=== PATIENT | female | born 1945 | race Caucasian/White ===

== ENCOUNTER 2017-02-03 09:49 | Emergency (ER) | payer MEDICARE, MEDICAID ==
--- NOTE | 2017-02-03 10:35 | EDM.PDOC ---
ED HPI Trauma - General Chief Complaint: Lower Extremity Injury/Pain Stated Complaint: Right foot redness Time Seen by Provider: 02/03/17 10:25 Source: Reports: Patient, RN notes reviewed History Limitations: Reports: No limitations - History of Present Illness INITIAL COMMENTS - FREE TEXT/NARRATIVE: 71 year old female, accompanied by her daughter, presents to the ED with concerns for worsening infection of her right foot. She has diabetic foot ulcers to the bottom of her right foot. This were debrieded by a lan support specialist this past week. They are unsure of the doctor's name but think it was Dr. Millan. She had redness to her foot which was outlined. They were instructed to come to the ED if the redness went past the outline. This morning they noticed that the redness extended just slightly past the line but it is improving in other areas. She has no fever or chills. She is on an antibiotic but they are unsure of the name. I'm guessing by the description she is on Bactrim DS but I am unable to verify since today is Saturday and I am unable to contact her specialist and pharmacy. They are following the wound care instructions as directed. They noticed some dark skin to the bottom of the foot and occasional drainage. She has a follow-up with her specialist on of this next week. Allergies/ADRs: Allergies No Known Allergies Allergy (Verified 02/03/17 10:01) Home Medications: Ambulatory Orders Hydrochlorothiazide 25 mg PO DAILY 02/03/17 [Confirmed 02/03/17] Insulin Aspart [NovoLOG] 0 unit SQ ASDIRECTED PRN 02/03/17 [Confirmed 02/03/17] Insulin Glarg,Human.Rec.Analog [LantUS Solostar] 72 units SQ BEDTIME 02/03/17 [ Confirmed 02/03/17] Levothyroxine [Synthroid] 50 mcg PO DAILY 02/03/17 [Confirmed 02/03/17] Losartan Potassium [Cozaar] 100 mg PO DAILY 02/03/17 [Confirmed 02/03/17] Simvastatin [Zocor] 20 mg PO BEDTIME 02/03/17 [Confirmed 02/03/17] amLODIPine [Norvasc] 5 mg PO DAILY 02/03/17 [Confirmed 02/03/17] Past Medical History HEENT History: Reports: Cataract, Impaired vision Other HEENT History: wears eyeglasses, strep throat Cardiovascular History: Reports: High cholesterol, Hypertension Genitourinary History: Reports: UTI, recurrent [employer] History: Reports: Musculoskeletal History: Reports: Fracture Endocrine/Metabolic History: Reports: Diabetes, type II, Hypothyroidism Hematologic History: Reports: Anemia Dermatologic History: Reports: Other (see below) Other Dermatologic History: surface blood clot removed from L) lower extremity. - Past Surgical History HEENT Surgical History: Reports: Cataract surgery, Tonsillectomy Musculoskeletal Surgical History: Reports: Other (see below) Other Musculoskeletal Surgeries/Procedures:: surgery to R) great toe Social & Family History - Tobacco Use Smoking Status *Q: Never Smoker Second Hand Smoke Exposure: No - Caffeine Use Caffeine Use: Reports: Soda, Tea - Recreational Drug Use Recreational Drug Use: No Review of Systems - Review of Systems Review Of Systems: See Below Constitutional: Reports: no symptoms. Denies: chills, fever Respiratory: Reports: No Symptoms. Denies: Shortness of Breath Cardiovascular: Reports: no symptoms. Denies: chest pain Musculoskeletal: Reports: foot pain Skin: Reports: erythema, wound Trauma Exam - Physical Exam Exam: See Below Exam Limited By: No limitations General Appearance: Reports: alert, WD/WN, no apparent distress Respiratory Exam: Reports: no respiratory distress, lungs clear, normal breath sounds Cardiovascular: Reports: regular rate, rhythm Extremities: Reports: tenderness (right foot ) Neurologic: Reports: alert, oriented x 3 Skin: Reports: Other (there is erythema to the dorsal aspect of the left foot. there is a black marker line on her foot surrounding the erythema. Most of the redness has receeded from the line. There is one small area where the redness passes the line but may be 2-3mm. On the bottom of the yelena's foot, there are two foot ulcers with eschar noted. There is a small, quarter sized area of black tissue. There is no foul odor. No drainage. ) Course - Vital Signs Last Recorded V/S: Last Vital Signs Temp 97.8 F 02/03/17 09:50 Pulse 71 02/03/17 12:30 Resp 16 02/03/17 12:30 BP 120/55 L 02/03/17 12:30 Pulse Ox 98 02/03/17 12:30 - Orders/Labs/Meds Labs: Laboratory Tests 02/03/17 02/03/17 Range/Units 10:49 10:49 WBC 11.51 H (3.98-10.04) K/mm3 RBC 3.88 L (3.98-5.22) M/mm3 Hgb 10.3 L (11.2-15.7) gm/L Hct 32.3 L (34.1-44.9) % MCV 83.2 (79.4-94.8) fl MCH 26.5 (25.6-32.2) pg MCHC 31.9 L (32.2-35.5) g/dl RDW Std Deviation 40.8 (36.4-46.3) fL Plt Count 410 H (182-369) K/mm3 MPV 8.2 L (9.4-12.3) fl Neutrophils % (Manual) 74 H (40-60) % Band Neutrophils % 0 (0-10) % Lymphocytes % (Manual) 14 L (20-40) % Atypical Lymphs % 0 % Monocytes % (Manual) 7 (2-10) % Eosinophils % (Manual) 2 (0.7-5.8) % Basophils % (Manual) 0 L (0.1-1.2) Metamyelocytes % 2 Myelocytes % 1 Platelet Estimate Adequate Plt Morphology Comment Normal Polychromasia 1+ slight Hypochromasia 1+ slight Poikilocytosis 1+ slight Anisocytosis 1+ slight Microcytosis 1+ slight Macrocytosis 1+ slight Tear Drop Cells 1+ slight RBC Morph Comment Abn C-Reactive Protein 7.5 H* (<1.0) mg/dL - Re-Assessments/Exams Free Text/Narrative Re-Assessment/Exam: CBC reveals WBC of 11,500 and elevated neutrophils. No bandemia. CRP is elevated at 7.5. These levels are to be expected considering she has a known infection. She is on day 3 of antibiotics. She has no fever or signs of systemic infection. On exam, the redness seems receding from the line with one small area that passes the line. I discussed this with Dr. Warner. He agrees that the patient seems to be improving and does not require any change in treatment plan. The patient and daughter were educated on return precautions. Instructed to continue current antibiotic and wound care instructions. They were instructed to call their lan support specialist tomorrow. I encourage them to see her PCP Connie Castellon on Saturday for recheck if her specialist cannot see her sooner than . Also recommended recheck in ED with any worsening of symptoms. Departure - Departure Time of Disposition: 12:09 Disposition: Home, Self-Care 01 Condition: good Clinical Impression: Cellulitis Qualifiers: Site of cellulitis: extremity Site of cellulitis of extremity: lower extremity Laterality: right Qualified Code(s): L03.115 - Cellulitis of right lower limb Foot ulcer Qualifiers: Laterality: right Non-pressure ulcer stage: unspecified non-pressure ulcer stage Qualified Code(s): L97.519 - Non-pressure chronic ulcer of other part of right foot with unspecified severity Instructions: Diabetes and Foot Care, Cellulitis, Adult, [id number] Referrals: Connie Castellon NP [Primary Care Provider] - Forms: ED Department Discharge Additional Instructions: Continue your antibiotics and wound care as instructed by your lan support specialist Call your lan support specialist tomorrow to update them on your progress See Connie Castellon in the clinic on Saturday for recheck if your specialist cannot see you any sooner than Return to ER with any worsening of symptoms
[2017-02-03 12:38] VITALS: BP 120/55
== END 2017-02-03 12:30 | disposition home or self-care (01) ==
LOC: SUPCPDRO 09:49 → JD.ED 09:49
DX: L03.115 Cellulitis of right lower limb (principal); E11.621 Type 2 diabetes mellitus with foot ulcer; L97.519 Non-pressure chronic ulcer of other part of right foot with unspecified severity; I10 Essential (primary) hypertension; E78.00 Pure hypercholesterolemia, unspecified; E03.9 Hypothyroidism, unspecified; Z79.4 Long term (current) use of insulin; Z79.899 Other long term (current) drug therapy; Z87.440 Personal history of urinary (tract) infections; Z98.49 Cataract extraction status, unspecified eye; Z86.2 Personal history of diseases of the blood and blood-forming organs and certain disorders involving the immune mechanism; Z98.890 Other specified postprocedural states
CPT/HCPCS: 36415; 85025; 86140; 99282; 99283

== ENCOUNTER 2017-05-23 00:24 | Inpatient (IN) | payer MEDICARE, MEDICAID ==
[2017-05-23] MEDS ORDERED: Ondansetron 4 MG/2 ML SDV IVPUSH ONE (00:47)
[2017-05-23] MEDS ORDERED: Sodium Chloride 0.9% 10 ML Syringe FLUSH PRN (00:47)
[2017-05-23] MEDS ORDERED: Sodium Chloride 0.9% 1,000 ML IV SCH (01:00)
--- NOTE | 2017-05-23 01:01 | EDM.PDOC ---
ED HPI GENERAL MEDICAL PROBLEM - General Chief Complaint: Gastrointestinal Problem Stated Complaint: THROWING UP Time Seen by Provider: 05/23/17 00:39 Source of Information: Reports: Patient, Family History Limitations: Reports: No Limitations - History of Present Illness INITIAL COMMENTS - FREE TEXT/NARRATIVE: The patient presents with generalized abdominal pain, nausea and vomiting. This started this morning and she has not eaten anything since noon. She has no diarrhea or dysuria. She was admitted a few weeks ago at [facility] in [place] for he same and she had pneumonia and a UTI. She also has an infected great toe on the left and an infection to the sole of her right foot. She has been seeing Dr Millan for this from [place]. They were doing very good when she was admitted. After she was discharged on the they have been getting worse. She feels like she has a fever and she has chills. She has a productive cough. She denies chest pain or shortness of breath. She has generalized abdominal pain when she vomits. Onset: Gradual Duration: Hour(s): (Since this morning) Location: Reports: Abdomen Quality: Reports: Ache Severity: Mild Improves with: Reports: None Worsens with: Reports: None Associated Symptoms: Reports: Cough, cough w sputum, Fever/Chills, Nausea/ Vomiting. Denies: Chest Pain, Shortness of Breath Right Abdomen Pain Score (Numeric/FACES): 4 R Foot Pain Score (Numeric/FACES): 5 - Related Data Allergies Allergy/AdvReac Type Severity Reaction Status Date / Time No Known Allergies Allergy Verified 05/23/17 00:50 Home Meds: Home Meds Hydrochlorothiazide 25 mg PO DAILY 02/03/17 [History] Insulin Aspart [NovoLOG] 0 unit SQ ASDIRECTED PRN 02/03/17 [History] Insulin Glarg,Human.Rec.Analog [LantUS Solostar] 72 units SQ BEDTIME 02/03/17 [ History] Levothyroxine [Synthroid] 50 mcg PO DAILY 02/03/17 [History] Losartan Potassium [Cozaar] 100 mg PO DAILY 02/03/17 [History] Simvastatin [Zocor] 20 mg PO BEDTIME 02/03/17 [History] amLODIPine [Norvasc] 5 mg PO DAILY 02/03/17 [History] Past Medical History HEENT History: Reports: Cataract, Impaired Vision Other HEENT History: wears eyeglasses, strep throat Cardiovascular History: Reports: High Cholesterol, Hypertension Gastrointestinal History: Reports: Chronic Constipation Genitourinary History: Reports: UTI, Recurrent [employer] History: Reports: 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 - Past Surgical History HEENT Surgical History: Reports: Cataract Surgery, Tonsillectomy GI Surgical History: Reports: None Social & Family History - Tobacco Use Smoking Status *Q: Former Smoker Used Tobacco, but Quit: Yes Month Tobacco Last Used: Second Hand Smoke Exposure: No - Caffeine Use Caffeine Use: Reports: Tea - Recreational Drug Use Recreational Drug Use: No ED ROS GENERAL - Review of Systems Review Of Systems: See Below Constitutional: Reports: Fever, Chills HEENT: Reports: No Symptoms Respiratory: Reports: Cough, Sputum Cardiovascular: Reports: No Symptoms Endocrine: Reports: No Symptoms GI/Abdominal: Reports: Abdominal Pain, Nausea, Vomiting. Denies: Diarrhea : Reports: No Symptoms Musculoskeletal: Reports: Other (Infected left great toe and right foot) ED EXAM, GI/ABD - Physical Exam Exam: See Below Exam Limited By: No Limitations General Appearance: Alert, No Apparent Distress Ears: Normal External Exam Nose: Normal Inspection Head: Atraumatic, Normocephalic Neck: Normal Inspection Respiratory/Chest: No Respiratory Distress, Lungs Clear, Normal Breath Sounds Cardiovascular: Regular Rate, Rhythm, No Edema, No Murmur GI/Abdominal Exam: Soft, Non-Tender, No Organomegaly Back Exam: Normal Inspection Extremities: Other (Erythema and edema with some skin break down of her left great toe. Ulcer and erythema to the bottom of her right foot.) Course - Vital Signs Last Recorded V/S: Last Vital Signs Temp 98.1 F 05/23/17 14:40 Pulse 83 05/23/17 14:40 Resp 12 05/23/17 14:40 BP 119/47 L 05/23/17 14:40 Pulse Ox 93 L 05/23/17 14:40 - Orders/Labs/Meds Orders: Active Orders 24 hr Category Date Time Status Cardiac Monitoring [RC] . DIRECTED Care 05/23/17 00:47 Active Peripheral IV Care [RC] . DIRECTED Care 05/23/17 00:48 Active CULTURE BLOOD [BC] Stat Lab 05/23/17 01:15 Received CULTURE BLOOD [BC] Stat Lab 05/23/17 01:22 Received UA W/MICROSCOPIC [URIN] Stat Lab 05/23/17 00:47 Uncollected Sodium Chloride 0.9% [Saline Flush] Med 05/23/17 00:47 Active 10 ml FLUSH ASDIRECTED PRN Blood Culture x2 Reflex Set [OM.PC] Stat Oth 05/23/17 00:48 Ordered ED Antiemetic Medication Reflex [OM.PC] Stat Oth 05/23/17 00:48 Ordered Peripheral IV Insertion Adult [OM.PC] Stat Oth 05/23/17 00:47 Ordered Medication Orders Acetaminophen (Tylenol) 650 mg PO Q4H PRN PRN Reason: Pain (Mild 1-3)/fever Hydrocodone Bitart/Acetaminophen (Onward 325-5 Mg) 1 tab PO Q4H PRN PRN Reason: Pain (moderate 4-6) Last Admin: 05/23/17 12:33 Dose: 1 tab Albuterol/Ipratropium (Duoneb 3.0-0.5 Mg/3 Ml) 3 ml NEB Q4H PRN PRN Reason: Shortness Of Breath/wheezing Amlodipine Besylate (Norvasc) 5 mg PO DAILY [facility] Last Admin: 05/23/17 11:14 Dose: 5 mg Bisacodyl (Dulcolax) 5 mg PO DAILY PRN PRN Reason: Constipation Bisacodyl (Dulcolax) 10 mg RECTAL DAILY PRN PRN Reason: Constipation Last Admin: 05/23/17 16:22 Dose: 10 mg Dextrose/Water (Dextrose 50% In Water) 50 ml IVPUSH ASDIRECTED PRN PRN Reason: Hypoglycemia Docusate Sodium (Colace) 100 mg PO BID PRN PRN Reason: Constipation Enoxaparin Sodium (Lovenox) 30 mg SUBCUT DAILY [facility] Hydralazine HCl (Apresoline) 20 mg IVPUSH Q4H PRN PRN Reason: Hypertension Hydrochlorothiazide (Hydrochlorothiazide) 25 mg PO DAILY [facility] Last Admin: 05/23/17 11:13 Dose: 25 mg Hydromorphone HCl (Dilaudid) 0.5 mg IVPUSH Q4H PRN PRN Reason: Pain (severe 7-10) Levofloxacin/Dextrose 250 mg/ (Premix) 50 mls @ 50 mls/hr IV Q24H [facility] Piperacillin Sod/Tazobactam (Sod 4.5 gm/ Sodium Chloride) 100 mls @ 25 mls/hr IV Q8H [facility] Last Admin: 05/23/17 17:00 Dose: 25 mls/hr Vancomycin HCl 250 mg/Vancomycin HCl 1 gm/ Sodium Chloride 250 mls @ 166 mls/ hr IV Q24H [facility] Last Admin: 05/23/17 13:54 Dose: 166 mls/hr Potassium Chloride 10 meq/ (Premix) 100 mls @ 100 mls/hr IV Q1H [facility] Stop: 05/23/17 20:29 Last Admin: 05/23/17 17:52 Dose: 100 mls/hr Infusion: 05/23/17 17:26 Dose: 100 mls/hr Admin: 05/23/17 16:26 Dose: 100 mls/hr Insulin Aspart (Novolog) 0 unit SUBCUT QIDACANDBED [facility] PRN Reason: Protocol Last Admin: 05/23/17 17:01 Dose: 6 units Admin: 05/23/17 11:40 Dose: 4 units Admin: 05/23/17 10:18 Dose: Insulin Detemir (Levemir) 36 unit SUBCUT BID [facility] Levothyroxine Sodium (Synthroid) 50 mcg PO ACBREAKFAST [facility] Last Admin: 05/23/17 11:13 Dose: 50 mcg Lorazepam (Ativan) 2 mg IVPUSH Q4H PRN PRN Reason: Seizures Losartan Potassium (Cozaar) 100 mg PO DAILY [facility] Last Admin: 05/23/17 11:14 Dose: 100 mg Magnesium Sulfate (Pharmacy To Dose - Magnesium Replacement) 0 dose .XX ASDIRECTED PRN PRN Reason: RX TO WATCH MAG LEVELS Metoprolol Tartrate (Lopressor) 5 mg IVPUSH Q4H PRN PRN Reason: Tachycardia Miscellaneous Information (Remove Patch) 1 ea TRDERM ONETIME ONE Stop: 05/26/17 16:00 Ondansetron HCl (Zofran) 4 mg IVPUSH Q4H PRN PRN Reason: Nausea/Vomiting Last Admin: 05/23/17 17:23 Dose: 4 mg Admin: 05/23/17 11:22 Dose: 4 mg Polyethylene Glycol (Miralax) 17 gm PO DAILY PRN PRN Reason: Constipation Potassium Chloride (Pharmacy To Dose - Potassium Replacement) 0 dose .XX ASDIRECTED PRN PRN Reason: RX TO WATCH K LEVELS Saccharomyces Boulardii (Florastor) 250 mg PO BID [facility] Senna/Docusate Sodium (Senna Plus) 1 tab PO BID PRN PRN Reason: Constipation Simvastatin (Zocor) 20 mg PO BEDTIME [facility] Sodium Chloride (Saline Flush) 10 ml FLUSH ASDIRECTED PRN PRN Reason: Keep Vein Open Last Admin: 05/23/17 00:55 Dose: 10 ml Temazepam (Restoril) 15 mg PO BEDTIME PRN PRN Reason: Sleep Vancomycin HCl (Pharmacy To Dose - Vancomycin) 0 dose .XX ASDIRECTED PRN PRN Reason: RX TO DOSE Labs: Laboratory Tests 05/23/17 05/23/17 05/23/17 Range/Units 00:43 00:43 01:15 WBC 17.33 H (3.98-10.04) K/mm3 RBC 4.38 (3.98-5.22) M/mm3 Hgb 11.4 (11.2-15.7) gm/L Hct 35.4 (34.1-44.9) % MCV 80.8 (79.4-94.8) fl MCH 26.0 (25.6-32.2) pg MCHC 32.2 (32.2-35.5) g/dl RDW Std Deviation 45.2 (36.4-46.3) fL Plt Count 317 (182-369) K/mm3 MPV 9.3 L (9.4-12.3) fl Neut % (Auto) 88.1 H (34.0-71.1) % Lymph % (Auto) 6.5 L (19.3-51.7) % [place] % (Auto) 4.6 L (4.7-12.5) % Eos % (Auto) 0.1 L (0.7-5.8) Baso % (Auto) 0.2 (0.1-1.2) % Neut # (Auto) 15.29 H (1.56-6.13) K/mm3 Lymph # (Auto) 1.13 L (1.18-3.74) K/mm3 [place] # (Auto) 0.79 H (0.24-0.36) K/mm3 Eos # (Auto) 0.01 L (0.04-0.36) K/mm3 Baso # (Auto) 0.03 (0.01-0.08) K/mm3 Manual Slide Review Abnormal smear Sodium 133 L (136-145) mEq/L Potassium 2.8 L (3.5-5.1) mEq/L Chloride 97 L (98-107) mEq/L Carbon Dioxide 23 (21-32) mEq/L Anion Gap 15.8 H (5-15) BUN 10 (7-18) mg/dL Creatinine 1.3 H (0.55-1.02) mg/dL Est Cr Clr Drug Dosing 31.39 mL/min Estimated GFR (MDRD) 40 (>60) mL/min BUN/Creatinine Ratio 7.7 L (14-18) Glucose 262 H (83-115) mg/dL Lactic Acid 3.5 H (0.4-2.0) mmol/L Calcium 9.5 (8.5-10.1) mg/dL Total Bilirubin 0.8 (0.2-1.0) mg/dL AST 25 (15-37) U/L ALT 35 (14-59) U/L Alkaline Phosphatase 105 (46-116) U/L Total Protein 9.7 H (6.4-8.2) g/dl Albumin 3.7 (3.4-5.0) g/dl Globulin 6.0 gm/dL Albumin/Globulin Ratio 0.6 L (1-2) Lipase 50 L (73-393) U/L Urine Color (Yellow) Urine Appearance (Clear) Urine pH (5.0-8.0) Ur Specific [place] (1.005-1.030) Urine Protein (Negative) Urine Glucose (UA) (Negative) Urine Ketones (Negative) Urine Occult Blood (Negative) Urine Nitrite (Negative) Urine Bilirubin (Negative) Urine Urobilinogen (0.2-1.0) Ur Leukocyte Esterase (Negative) 05/23/17 Range/Units 03:33 WBC (3.98-10.04) K/mm3 RBC (3.98-5.22) M/mm3 Hgb (11.2-15.7) gm/L Hct (34.1-44.9) % MCV (79.4-94.8) fl MCH (25.6-32.2) pg MCHC (32.2-35.5) g/dl RDW Std Deviation (36.4-46.3) fL Plt Count (182-369) K/mm3 MPV (9.4-12.3) fl Neut % (Auto) (34.0-71.1) % Lymph % (Auto) (19.3-51.7) % [place] % (Auto) (4.7-12.5) % Eos % (Auto) (0.7-5.8) Baso % (Auto) (0.1-1.2) % Neut # (Auto) (1.56-6.13) K/mm3 Lymph # (Auto) (1.18-3.74) K/mm3 [place] # (Auto) (0.24-0.36) K/mm3 Eos # (Auto) (0.04-0.36) K/mm3 Baso # (Auto) (0.01-0.08) K/mm3 Manual Slide Review Sodium (136-145) mEq/L Potassium (3.5-5.1) mEq/L Chloride (98-107) mEq/L Carbon Dioxide (21-32) mEq/L Anion Gap (5-15) BUN (7-18) mg/dL Creatinine (0.55-1.02) mg/dL Est Cr Clr Drug Dosing mL/min Estimated GFR (MDRD) (>60) mL/min BUN/Creatinine Ratio (14-18) Glucose (83-115) mg/dL Lactic Acid (0.4-2.0) mmol/L Calcium (8.5-10.1) mg/dL Total Bilirubin (0.2-1.0) mg/dL AST (15-37) U/L ALT (14-59) U/L Alkaline Phosphatase (46-116) U/L Total Protein (6.4-8.2) g/dl Albumin (3.4-5.0) g/dl Globulin gm/dL Albumin/Globulin Ratio (1-2) Lipase (73-393) U/L Urine Color Becca H (Yellow) Urine Appearance Cloudy H (Clear) Urine pH 6.0 (5.0-8.0) Ur Specific [place] > or = 1.030 (1.005-1.030) Urine Protein 3+ H (Negative) Urine Glucose (UA) Negative (Negative) Urine Ketones Negative (Negative) Urine Occult Blood 2+ H (Negative) Urine Nitrite Positive H (Negative) Urine Bilirubin 1+ H (Negative) Urine Urobilinogen 0.2 (0.2-1.0) Ur Leukocyte Esterase Trace H (Negative) Meds: Medications Generic Name Dose Route Start Last Admin Trade Name Freq PRN Reason Stop Dose Admin Acetaminophen 650 mg 05/23/17 12:22 Tylenol PO Q4H PRN Pain (Mild 1-3)/fever Hydrocodone Bitart/Acetaminophen 1 tab 05/23/17 12:22 05/23/17 12:33 Onward 325-5 Mg PO 1 tab Q4H PRN Administration Pain (moderate 4-6) Albuterol/Ipratropium 3 ml 05/23/17 12:55 Duoneb 3.0-0.5 Mg/3 Ml NEB Q4H PRN Shortness Of Breath/wheezing Amlodipine Besylate 5 mg 05/23/17 10:00 05/23/17 11:14 Norvasc PO 5 mg DAILY [facility] Administration Bisacodyl 5 mg 05/23/17 12:55 Dulcolax PO DAILY PRN Constipation Bisacodyl 10 mg 05/23/17 16:03 05/23/17 16:22 Dulcolax RECTAL 10 mg DAILY PRN Administration Constipation Dextrose/Water 50 ml 05/23/17 09:41 Dextrose 50% In Water IVPUSH ASDIRECTED PRN Hypoglycemia Docusate Sodium 100 mg 05/23/17 12:55 Colace PO BID PRN Constipation Enoxaparin Sodium 30 mg 05/24/17 12:00 Lovenox SUBCUT DAILY [facility] Hydralazine HCl 20 mg 05/23/17 09:36 Apresoline IVPUSH Q4H PRN Hypertension Hydrochlorothiazide 25 mg 05/23/17 10:00 05/23/17 11:13 Hydrochlorothiazide PO 25 mg DAILY [facility] Administration Hydromorphone HCl 0.5 mg 05/23/17 12:22 Dilaudid IVPUSH Q4H PRN Pain (severe 7-10) Levofloxacin/Dextrose 250 mg/ 50 mls @ 50 mls/hr 05/24/17 01:00 Premix IV Q24H [facility] Piperacillin Sod/Tazobactam 100 mls @ 25 mls/hr 05/23/17 18:00 05/23/17 17:00 Sod 4.5 gm/ Sodium Chloride IV 25 mls/hr Q8H [facility] Administration Vancomycin HCl 250 mg/ 250 mls @ 166 mls/hr 05/23/17 14:00 05/23/17 13:54 Vancomycin HCl 1 gm/ Sodium IV 166 mls/hr Chloride Q24H [facility] Administration Potassium Chloride 10 meq/ 100 mls @ 100 mls/hr 05/23/17 16:30 05/23/17 17:52 Premix IV 05/23/17 20:29 100 mls/hr Q1H [facility] Administration Insulin Aspart 0 unit 05/23/17 09:45 05/23/17 17:01 Novolog SUBCUT 6 units QIDACANDBED [facility] Administration Protocol Insulin Detemir 36 unit 05/23/17 21:00 Levemir SUBCUT BID [facility] Levothyroxine Sodium 50 mcg 05/23/17 10:00 05/23/17 11:13 Synthroid PO 50 mcg ACBREAKFAST [facility] Administration Lorazepam 2 mg 05/23/17 09:36 Ativan IVPUSH Q4H PRN Seizures Losartan Potassium 100 mg 05/23/17 10:00 05/23/17 11:14 Cozaar PO 100 mg DAILY [facility] Administration Magnesium Sulfate 0 dose 05/23/17 09:45 Pharmacy To Dose - Magnesium Replacement .XX ASDIRECTED PRN RX TO WATCH MAG LEVELS Metoprolol Tartrate 5 mg 05/23/17 09:36 Lopressor IVPUSH Q4H PRN Tachycardia Miscellaneous Information 1 ea 05/26/17 15:59 Remove Patch TRDERM 05/26/17 16:00 ONETIME ONE Ondansetron HCl 4 mg 05/23/17 10:06 05/23/17 17:23 Zofran IVPUSH 4 mg Q4H PRN Administration Nausea/Vomiting Polyethylene Glycol 17 gm 05/23/17 12:55 Miralax PO DAILY PRN Constipation Potassium Chloride 0 dose 05/23/17 09:45 Pharmacy To Dose - Potassium Replacement .XX ASDIRECTED PRN RX TO WATCH K LEVELS Saccharomyces Boulardii 250 mg 05/23/17 21:00 Florastor PO BID [facility] Senna/Docusate Sodium 1 tab 05/23/17 12:55 Senna Plus PO BID PRN Constipation Simvastatin 20 mg 05/23/17 21:00 Zocor PO BEDTIME [facility] Sodium Chloride 10 ml 05/23/17 00:47 05/23/17 00:55 Saline Flush FLUSH 10 ml ASDIRECTED PRN Administration Keep Vein Open Temazepam 15 mg 05/23/17 21:00 Restoril PO BEDTIME PRN Sleep Vancomycin HCl 0 dose 05/23/17 09:45 Pharmacy To Dose - Vancomycin .XX ASDIRECTED PRN RX TO DOSE Discontinued Medications Generic Name Dose Route Start Last Admin Trade Name Freq PRN Reason Stop Dose Admin Enoxaparin Sodium 30 mg 05/23/17 14:22 05/23/17 17:56 Lovenox SUBCUT 05/23/17 14:23 Not Given ONETIME ONE Sodium Chloride 1,000 mls @ 125 mls/hr 05/23/17 01:00 05/23/17 00:57 Normal Saline IV 125 mls/hr ASDIRECTED [facility] Administration Levofloxacin/Dextrose Confirm 05/23/17 02:50 Levaquin In D5w 750 Mg/150 Ml Administered 05/23/17 02:51 Dose 150 mls @ as directed IV .STK-MED ONE Potassium Chloride/Sodium Chloride Confirm 05/23/17 04:37 Normal Saline With 20 Meq Kcl Administered 05/23/17 04:38 Dose 1,000 mls @ as directed .ROUTE .STK-MED ONE Levofloxacin/Dextrose 750 mg/ 150 mls @ 100 mls/hr 05/23/17 08:56 05/23/17 02 :52 Premix IV 05/23/17 10:25 100 mls/hr ONETIME ONE Administration Potassium Chloride/Sodium Chloride 1,000 mls @ 100 mls/hr 05/23/17 04:35 04:35 Normal Saline With 20 Meq Kcl IV 05/23/17 14:34 100 mls/hr ONETIME ONE Administration Vancomycin HCl 1 gm/ Sodium 250 mls @ 250 mls/hr 05/23/17 14:00 Chloride IV Q24H [facility] Piperacillin Sod/Tazobactam 100 mls @ 200 mls/hr 05/23/17 10:00 05/23/17 11: 12 Sod 4.5 gm/ Sodium Chloride IV 05/23/17 10:29 200 mls/hr ONETIME ONE Administration Magnesium Sulfate 4 gm/ Premix 100 mls @ 50 mls/hr 05/23/17 14:30 05/23/17 15 :50 IV 05/23/17 16:29 50 mls/hr ONETIME ONE Administration Metoclopramide HCl Confirm 05/23/17 02:49 Reglan Administered 05/23/17 02:50 Dose 10 mg .ROUTE .STK-MED ONE Metoclopramide HCl 10 mg 05/23/17 08:55 05/23/17 02:49 Reglan IVPUSH 05/23/17 08:56 10 mg ONETIME ONE Administration Ondansetron HCl 4 mg 05/23/17 00:47 05/23/17 00:57 Zofran IVPUSH 05/23/17 00:48 4 mg ONETIME ONE Administration Potassium Chloride 40 meq 05/23/17 14:30 05/23/17 17:56 Klor-Con M20 PO 05/23/17 22:31 Not Given Q4H [facility] Scopolamine 1.5 mg 05/23/17 16:01 05/23/17 16:22 Transderm-Scop TRDERM 05/23/17 16:02 1.5 mg Q72H ONE Administration - Re-Assessments/Exams Free Text/Narrative Re-Assessment/Exam: 05/23/17 01:02 I ordered an IV NS at 125mL/hr, labs, UA, CXR and blood cultures and zofran 4g IV. 05/23/17 01:02 05/23/17 19:17 Her WBC was elevated at 17.33. Her K was low at 2.8. I changed her IV solution to NS with 20meq of KCL at 100mL/hr. Her Na was low at 133. Her anion gap was elevated to 15.8. Her glucose was elevated at 262. Her lactic acid was elevated at 3.5. Her UA shows a UTI. The patient has a UTI and an infection of her left great toe with cellulitis of her right foot. She is not septic yet but she is close. Her CXR shows no infiltrates. I feel she needs to be admitted. I called Dr Trotter and he agreed to the admission. I ordered levaquin 750mg IV and clindamycin 600mg IV. Departure - Departure Time of Disposition: 03:00 Disposition: Admitted As Inpatient 67 Condition: Serious Clinical Impression: Hypokalemia, Cellulitis of right foot, Cough UTI (urinary tract infection) Qualifiers: Urinary tract infection type: site unspecified Hematuria presence: without hematuria Qualified Code(s): N39.0 - Urinary tract infection, site not specified Ulcer of right foot Qualifiers: Non-pressure ulcer stage: unspecified non-pressure ulcer stage Qualified Code(s ): L97.519 - Non-pressure chronic ulcer of other part of right foot with unspecified severity Abrasion of great toe, left, infected Qualifiers: Encounter type: initial encounter Qualified Code(s): S90.412A - Abrasion, left great toe, initial encounter; L08.9 - Local infection of the skin and subcutaneous tissue, unspecified Nausea & vomiting Qualifiers: Vomiting type: unspecified Vomiting Intractability: non-intractable Qualified Code(s): R11.2 - Nausea with vomiting, unspecified - Discharge Information - My Orders Last 24 Hours: My Active Orders 05/23/17 00:47 Cardiac Monitoring [RC] . DIRECTED UA W/MICROSCOPIC [URIN] Stat Sodium Chloride 0.9% [Saline Flush] 10 ml FLUSH ASDIRECTED PRN Peripheral IV Insertion Adult [OM.PC] Stat 05/23/17 00:48 Peripheral IV Care [RC] . DIRECTED Blood Culture x2 Reflex Set [OM.PC] Stat ED Antiemetic Medication Reflex [OM.PC] Stat 05/23/17 01:15 CULTURE BLOOD [BC] Stat 05/23/17 01:22 CULTURE BLOOD [BC] Stat - Assessment/Plan Last 24 Hours: My Active Orders 05/23/17 00:47 Cardiac Monitoring [RC] . DIRECTED UA W/MICROSCOPIC [URIN] Stat Sodium Chloride 0.9% [Saline Flush] 10 ml FLUSH ASDIRECTED PRN Peripheral IV Insertion Adult [OM.PC] Stat 05/23/17 00:48 Peripheral IV Care [RC] . DIRECTED Blood Culture x2 Reflex Set [OM.PC] Stat ED Antiemetic Medication Reflex [OM.PC] Stat 05/23/17 01:15 CULTURE BLOOD [BC] Stat 05/23/17 01:22 CULTURE BLOOD [BC] Stat
[2017-05-23] MEDS ORDERED: Metoclopramide 10 MG/2 ML SDV ONE (02:49)
[2017-05-23] MEDS ORDERED: Levofloxacin/Dextrose 5%-Water 150 ML IV ONE (02:50)
[2017-05-23] MEDS ORDERED: NS + KCl 20mEq/L 1,000 ML IV ONE (04:35)
[2017-05-23] MEDS ORDERED: NS + KCl 20mEq/L 1,000 ML ONE (04:37)
--- NOTE | 2017-05-23 08:34 | PCM.HP ---
H&P History of Present Illness - General Date of Service: 05/23/17 Admit Problem/Dx: Diabetic Foot and Toe Ulcer Source of Information: Patient, Family, Old Records, Provider, RN Notes Reviewed History Limitations: Reports: Physical Impairment - History of Present Illness Initial Comments - Free Text/Narative: This is a 72 year old white female with past medical history of cataract, hypertension, hyperlipidemia, chronic constipation, recurrent UTI, hypothyroidism, chronic anemia, and type 2 diabetes, who presents to the emergency department with complaints of generalized abdominal pain with nausea and vomiting that started this morning. She denies any diarrhea or constipation. Patient denies any recent travel. No unusual diet or drinking, she has not gone out camping or hiking. Patient reports associated symptoms of fever and chills. She also admits to having productive cough. She denies any chest pain or shortness of breath. Patient was recently admitted admitted a few weeks ago in [facility] for treatment of pneumonia and UTI. Currently, she has an infected great toe on her left foot and at the sole of her right foot. He is being following Dr. Millan in [place] for foot care. Her initial workup in the emergency department shows a CBC remarkable for WBC of 17.33, neutrophils of 88.1%, lymphocytes of 6.5%, monocytes of 4.6% and eosinophils of 0.1%. Her chemistry is significant for sodium of 133, potassium of 2.8, chloride of 97, anion gap of 15.8, creatinine of 1.3, glucose of 262, lactic acid of 2.5, total protein of 9.7 and lipase of 50. Her UA suggestive of urinary tract infection. Her chest x-ray report reads no acute abnormalities seen. Patient is being admitted for medical management and possible surgical management of diabetes followed and toe ulcer. She is full code. Right Abdomen Pain Score (Numeric/FACES): 4 R Foot Pain Score (Numeric/FACES): 5 - Related Data Allergies/Adverse Reactions: Allergies Allergy/AdvReac Type Severity Reaction Status Date / Time No Known Allergies Allergy Verified 05/23/17 00:50 Home Medications: Home Meds Hydrochlorothiazide 25 mg PO DAILY 02/03/17 [History] Insulin Aspart [NovoLOG] 0 unit SQ ASDIRECTED PRN 02/03/17 [History] Insulin Glarg,Human.Rec.Analog [LantUS Solostar] 72 units SQ BEDTIME 02/03/17 [ History] Levothyroxine [Synthroid] 50 mcg PO DAILY 02/03/17 [History] Losartan Potassium [Cozaar] 100 mg PO DAILY 02/03/17 [History] Simvastatin [Zocor] 20 mg PO BEDTIME 02/03/17 [History] amLODIPine [Norvasc] 5 mg PO DAILY 02/03/17 [History] Past Medical History HEENT History: Reports: Cataract, Impaired Vision Other HEENT History: wears eyeglasses, strep throat Cardiovascular History: Reports: High Cholesterol, Hypertension Gastrointestinal History: Reports: Chronic Constipation Genitourinary History: Reports: UTI, 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 - Past Surgical History HEENT Surgical History: Reports: Cataract Surgery, Tonsillectomy GI Surgical History: Reports: None Social & Family History - Tobacco Use Smoking Status *Q: Former Smoker Used Tobacco, but Quit: Yes Month Tobacco Last Used: Second Hand Smoke Exposure: No - Caffeine Use Caffeine Use: Reports: Tea - Recreational Drug Use Recreational Drug Use: No H&P Review of Systems - Review of Systems: Review Of Systems: See Below General: Reports: Fever, Chills HEENT: Reports: No Symptoms Pulmonary: Reports: Cough Cardiovascular: Denies: Chest Pain Gastrointestinal: Reports: Abdominal Pain, Other (Dry Heaving) Genitourinary: Reports: No Symptoms Musculoskeletal: Reports: No Symptoms Skin: Reports: Wound (right foot andf infected toe on left foot) Psychiatric: Denies: Depression, Anxiety, Agitation, Hallucinations Neurological: Reports: Difficulty Walking, Gait Disturbance. Denies: Pre- Existing Deficit, Weakness Hematologic/Lymphatic: Reports: No Symptoms Immunologic: Reports: No Symptoms Exam - Exam Exam: See Below - Vital Signs Vital Signs: Last Vital Signs Temp 36.9 C 05/23/17 07:53 Pulse 98 05/23/17 07:53 Resp 12 05/23/17 07:53 BP 131/59 L 05/23/17 07:53 Pulse Ox 93 L 05/23/17 07:53 Weight: 83.461 kg - Exam General: Alert, Oriented, Cooperative, Mild Distress HEENT: Conjunctiva Clear, EOMI, Hearing Intact, Mucosa Moist & [place], Nares Patent, Normal Nasal Septum, Posterior Pharynx Clear, Pupils Equal, Pupils Reactive Neck: Supple, Trachea Midline Lungs: Clear to Auscultation, Normal Respiratory Effort Cardiovascular: Regular Rate, Regular Rhythm GI/Abdominal Exam: Normal Bowel Sounds, Soft, Non-Tender, No Organomegaly, No Distention, No Abnormal Bruit, No Mass (Female) Exam: Deferred Rectal (Female) Exam: Deferred Back Exam: Normal Inspection, Decreased Range of Motion Extremities: Other (Right Foot: Dime sized ulcer at the arch, no erythema, mild edema, non tender to the touch, foot is flat; Left Foot: Great toe is red, edematous, tender to the touch and with abscess)) Peripheral Pulses: 1+: Dorsalis Pedis (L), Dorsalis Pedis (R) Skin: Warm, Dry, Intact Neuro Extensive - Mental Status: Oriented x3, Normal Cognition, Memory Intact Neuro Extensive - Motor, Sensory, Reflexes: CN II-XII Intact (limited but grossly intact), Abnormal Gait Psychiatric: Alert, Normal Affect, Normal Mood - Patient Data Lab Results Last 24 hrs: Laboratory Results - last 24 hr 05/23/17 Range/Units 06:57 POC Glucose 185 H (83-110) mg/dL Result Diagrams: 05/25/17 06:45 05/25/17 06:45 EKG INTERPRETATION EKG Date: 05/23/17 Time: 11:35 Rhythm: Other (Sinus Rhythm) [place]: LAD-Left [place] Deviation *Q Meaningful Use (ADM) - VTE *Q VTE Criteria *Q: - Stroke *Q Stroke Criteria *Q: - AMI *Q AMI Criteria *Q: Problem List Initiated/Reviewed/Updated: Yes Orders Last 24hrs: Medication Orders Sodium Chloride (Normal Saline) 1,000 mls @ 125 mls/hr IV ASDIRECTED [facility] Last Admin: 05/23/17 00:57 Dose: 125 mls/hr Sodium Chloride (Saline Flush) 10 ml FLUSH ASDIRECTED PRN PRN Reason: Keep Vein Open Last Admin: 05/23/17 00:55 Dose: 10 ml Assessment/Plan Comment:: Assessment/Plan: Acute: Diabetic Foot and Toe Ulcer - Right Foot Sole and Left Great Toe - Risk factors DM and PAD - IV Abx: Vancomycin, Levaquin and Zosyn (due to recent hospitalization in [facility]) - GS consult for further eval for possible I&D - Arterial Study Leukocytosis - 2/2 Above - WBC is 17.33 and CRP is 17 - Treat underlying cause - Will monitor Mild Hyponatremia - Na 133 - Likely 2/2 uncontrolled BS - IV fluids - Monitor Hypokalemia - K 2.8 - 2/2 inadequate intake and hyperglycemia - Currently receiving supplement - Pharmacy to replete and monitor on next level Hyperglycemia with DM2 - BS in the upper 200s - Not sure her A1C was - Insulin regimen With ISS - Accu-check QIDandHS UTI - Risk factor: DM - UA pos for UTI - Already on IV ATB - Pending Cx/Sx Probable PAD - Arterial study with padnet in AM Abdominal Pain - She carries a hx/o DM - Query Gastroparesis - Will Obtain recent CT scan study in - Pain med and supportive Care - She is currently nauseous w/o emesis Chronic: Impaired Vision HTN HLD Constipation Recurrent UTI DM2 Hypothyrodism Chronic Anemia Overweight Plan: Admit to med-Surg Routine AM Labs Resume Home Meds PT/OT consult Sw/CM for d/c planning GS consult Additional orders as above Code status: 1
[2017-05-23] MEDS ORDERED: Metoclopramide 10 MG/2 ML SDV IVPUSH ONE (08:55)
[2017-05-23] MEDS ORDERED: Levofloxacin/Dextrose 5%-Water 750 MG in Premix Bag 1 BAG IV ONE (08:56)
[2017-05-23] MEDS ORDERED: hydrALAZINE 20 MG/ML SDV IVPUSH PRN ×2 (09:36→12:54)
[2017-05-23] MEDS ORDERED: LORazepam 2 MG/ML MDV IVPUSH PRN ×2 (09:36→12:54)
[2017-05-23] MEDS ORDERED: Metoprolol Tartrate 5 MG/5 ML SDV IVPUSH PRN ×2 (09:36→12:54)
[2017-05-23] MEDS ORDERED: 50% Dextrose in Water 50 ML Syringe IVPUSH PRN (09:41)
[2017-05-23] MEDS ORDERED: Piperacillin/Tazobactam 4.5 GM in Sodium Chloride 0.9% 100 ML IV ONE (10:00)
[2017-05-23] MEDS: Insulin Aspart 100 Units/ML 3 ML Pen SUBCUT SCH ×4 (10:18→21:54)
--- NOTE | 2017-05-23 11:01 | PCM.CONSN ---
- General Info Date of Service: 05/23/17 - Patient Data Vitals - Most Recent: Last Vital Signs Temp 98.4 F 05/23/17 07:53 Pulse 98 05/23/17 07:53 Resp 12 05/23/17 07:53 BP 131/59 L 05/23/17 07:53 Pulse Ox 93 L 05/23/17 07:53 Weight - Most Recent: 83.461 kg Lab Results Last 24 Hours: Laboratory Results - last 24 hr 05/23/17 05/23/17 Range/Units 06:57 10:05 WBC 14.78 H (3.98-10.04) K/mm3 RBC 3.91 L (3.98-5.22) M/mm3 Hgb 10.1 L (11.2-15.7) gm/L Hct 31.8 L (34.1-44.9) % MCV 81.3 (79.4-94.8) fl MCH 25.8 (25.6-32.2) pg MCHC 31.8 L (32.2-35.5) g/dl RDW Std Deviation 46.0 (36.4-46.3) fL Plt Count 284 (182-369) K/mm3 MPV 9.0 L (9.4-12.3) fl Neut % (Auto) 83.3 H (34.0-71.1) % Lymph % (Auto) 8.5 L (19.3-51.7) % [place] % (Auto) 7.2 (4.7-12.5) % Eos % (Auto) 0 L (0.7-5.8) Baso % (Auto) 0.2 (0.1-1.2) % Neut # (Auto) 12.31 H (1.56-6.13) K/mm3 Lymph # (Auto) 1.26 (1.18-3.74) K/mm3 [place] # (Auto) 1.06 H (0.24-0.36) K/mm3 Eos # (Auto) 0.00 L (0.04-0.36) K/mm3 Baso # (Auto) 0.03 (0.01-0.08) K/mm3 POC Glucose 185 H (83-110) mg/dL Med Orders - Current: Current Medications Amlodipine Besylate (Norvasc) 5 mg PO DAILY [facility] Dextrose/Water (Dextrose 50% In Water) 50 ml IVPUSH ASDIRECTED PRN PRN Reason: Hypoglycemia Hydralazine HCl (Apresoline) 20 mg IVPUSH Q4H PRN PRN Reason: Hypertension Hydrochlorothiazide (Hydrochlorothiazide) 25 mg PO DAILY [facility] Sodium Chloride (Normal Saline) 1,000 mls @ 125 mls/hr IV ASDIRECTED [facility] Last Admin: 05/23/17 00:57 Dose: 125 mls/hr Potassium Chloride/Sodium Chloride (Normal Saline With 20 Meq Kcl) 1,000 mls @ 100 mls/hr IV ONETIME ONE Stop: 05/23/17 14:34 Last Admin: 05/23/17 04:35 Dose: 100 mls/hr Levofloxacin/Dextrose 250 mg/ (Premix) 50 mls @ 50 mls/hr IV Q24H [facility] Vancomycin HCl 1 gm/ Sodium (Chloride) 250 mls @ 250 mls/hr IV Q24H [facility] Piperacillin Sod/Tazobactam (Sod 4.5 gm/ Sodium Chloride) 100 mls @ 25 mls/hr IV Q8H [facility] Insulin Aspart (Novolog) 0 unit SUBCUT QIDACANDBED [facility] PRN Reason: Protocol Last Admin: 05/23/17 10:18 Dose: Not Given Insulin Detemir (Levemir) 36 unit SUBCUT BID [facility] Levothyroxine Sodium (Synthroid) 50 mcg PO ACBREAKFAST [facility] Lorazepam (Ativan) 2 mg IVPUSH Q4H PRN PRN Reason: Seizures Losartan Potassium (Cozaar) 100 mg PO DAILY [facility] Magnesium Sulfate (Pharmacy To Dose - Magnesium Replacement) 0 dose .XX ASDIRECTED PRN PRN Reason: RX TO WATCH MAG LEVELS Metoprolol Tartrate (Lopressor) 5 mg IVPUSH Q4H PRN PRN Reason: Tachycardia Ondansetron HCl (Zofran) 4 mg IVPUSH Q4H PRN PRN Reason: Nausea/Vomiting Potassium Chloride (Pharmacy To Dose - Potassium Replacement) 0 dose .XX ASDIRECTED PRN PRN Reason: RX TO WATCH K LEVELS Saccharomyces Boulardii (Florastor) 250 mg PO BID [facility] Simvastatin (Zocor) 20 mg PO BEDTIME [facility] Sodium Chloride (Saline Flush) 10 ml FLUSH ASDIRECTED PRN PRN Reason: Keep Vein Open Last Admin: 05/23/17 00:55 Dose: 10 ml Vancomycin HCl (Pharmacy To Dose - Vancomycin) 0 dose .XX ASDIRECTED PRN PRN Reason: RX TO DOSE Discontinued Medications Levofloxacin/Dextrose (Levaquin In D5w 750 Mg/150 Ml) Confirm Administered Dose 150 mls @ as directed IV .STK-MED ONE Stop: 05/23/17 02:51 Potassium Chloride/Sodium Chloride (Normal Saline With 20 Meq Kcl) Confirm Administered Dose 1,000 mls @ as directed .ROUTE .STK-MED ONE Stop: 05/23/17 04:38 Levofloxacin/Dextrose 750 mg/ (Premix) 150 mls @ 100 mls/hr IV ONETIME ONE Stop: 05/23/17 10:25 Last Admin: 05/23/17 02:52 Dose: 100 mls/hr Piperacillin Sod/Tazobactam (Sod 4.5 gm/ Sodium Chloride) 100 mls @ 200 mls/hr IV ONETIME ONE Stop: 05/23/17 10:29 Metoclopramide HCl (Reglan) Confirm Administered Dose 10 mg .ROUTE .STK-MED ONE Stop: 05/23/17 02:50 Metoclopramide HCl (Reglan) 10 mg IVPUSH ONETIME ONE Stop: 05/23/17 08:56 Last Admin: 05/23/17 02:49 Dose: 10 mg Ondansetron HCl (Zofran) 4 mg IVPUSH ONETIME ONE Stop: 05/23/17 00:48 Last Admin: 05/23/17 00:57 Dose: 4 mg Consult PN Assessment/Plan Procedures: Procedures C-REACTIVE PROTEIN (02/03/17) COMPLETE CBC W/AUTO DIFF WBC (02/03/17) CULTURE AEROBIC IDENTIFY (02/08/14) EMERGENCY DEPT VISIT (02/03/17) MICROBE SUSCEPTIBLE ALLY (02/08/14) ROUTINE VENIPUNCTURE (02/03/17) URINE BACTERIA CULTURE (02/08/14) Problem List Initiated/Reviewed/Updated: Yes My Orders Last 24 Hours: My Active Orders 05/23/17 10:59 Verify Patient Consent Obtain [RC] ASDIRECTED 05/23/17 Dinner Nothing per Oral After Midnight Diet [DIET] 05/24/17 10:59 Schedule Procedure [COMM] Routine Plan: surgical constult dictated JMB
[2017-05-23] MEDS: Levothyroxine 50 MCG Tab PO SCH (11:13)
[2017-05-23] MEDS: Hydrochlorothiazide 25 MG Tab PO SCH (11:13)
[2017-05-23] MEDS: Losartan 100 MG Tab PO SCH (11:14)
[2017-05-23] MEDS: amLODIPine 5 MG Tab PO SCH (11:14)
[2017-05-23] MEDS: Ondansetron 4 MG/2 ML SDV IVPUSH PRN ×2 (11:22→17:23)
--- NOTE | 2017-05-23 11:31 | PCM.PREANE ---
Preanesthetic Assessment - Anesthesia/Transfusion/Family Hx Anesthesia History: Prior Anesthesia Without Reaction Family History of Anesthesia Reaction: No Transfusion History: No Prior Transfusion(s) Intubation History: Unknown - Review of Systems General: No Symptoms (Recent bout of UTI, and pneumonia a few weeks ago with [facility] noted.), Fever, Chills Pulmonary: No Symptoms (quit smoking in 1979), Cough, Sputum Cardiovascular: No Symptoms (history of HTN), Palpitations, Lightheadedness ( postural hypotension) Gastrointestinal: No Symptoms (GERD), Abdominal Pain, Constipation, Decreased Appetite, Nausea, Vomiting Neurological: No Symptoms, Tingling (bilateral hands due to arthritis) Other: Reports: Easy Bruising, Diabetes (diabetic neuropathy noted.), Thyroid Problems (hypothyroid), Neck Pain - Physical Assessment NPO Status Date: 05/23/17 NPO Status Time: 23:59 Pulse: 98 O2 Sat by Pulse Oximetry: 93 Respiratory Rate: 12 Blood Pressure: 131/59 Temperature: 36.9 C Vital Signs: Last Vital Signs Temp 36.9 C 05/23/17 07:53 Pulse 98 05/23/17 07:53 Resp 12 05/23/17 07:53 BP 131/59 L 05/23/17 07:53 Pulse Ox 93 L 05/23/17 07:53 Height: 1.57 m Weight: 83.461 kg ASA Class: 2 Mental Status: Alert & Oriented x3 Airway Class: Mallampati = 3 Dentition: Reports: Dentures (upper), Missing Tooth/Teeth Thyro-Mental Finger Breadths: 3 Mouth Opening Finger Breadths: 3 ROM/Head Extension: Full (some neck tenderness noted.) Lungs: Clear to Auscultation, Normal Respiratory Effort Cardiovascular: Regular Rate, Regular Rhythm, No Murmurs - Lab Values: Laboratory Last Values WBC 14.78 K/mm3 (3.98-10.04) H 05/23/17 10:05 RBC 3.91 M/mm3 (3.98-5.22) L 05/23/17 10:05 Hgb 10.1 gm/L (11.2-15.7) L 05/23/17 10:05 Hct 31.8 % (34.1-44.9) L 05/23/17 10:05 MCV 81.3 fl (79.4-94.8) 05/23/17 10:05 MCH 25.8 pg (25.6-32.2) 05/23/17 10:05 MCHC 31.8 g/dl (32.2-35.5) L 05/23/17 10:05 RDW Std Deviation 46.0 fL (36.4-46.3) 05/23/17 10:05 Plt Count 284 K/mm3 (182-369) 05/23/17 10:05 MPV 9.0 fl (9.4-12.3) L 05/23/17 10:05 Neut % (Auto) 83.3 % (34.0-71.1) H 05/23/17 10:05 Lymph % (Auto) 8.5 % (19.3-51.7) L 05/23/17 10:05 [place] % (Auto) 7.2 % (4.7-12.5) 05/23/17 10:05 Eos % (Auto) 0 (0.7-5.8) L 05/23/17 10:05 Baso % (Auto) 0.2 % (0.1-1.2) 05/23/17 10:05 Neut # (Auto) 12.31 K/mm3 (1.56-6.13) H 05/23/17 10:05 Lymph # (Auto) 1.26 K/mm3 (1.18-3.74) 05/23/17 10:05 [place] # (Auto) 1.06 K/mm3 (0.24-0.36) H 05/23/17 10:05 Eos # (Auto) 0.00 K/mm3 (0.04-0.36) L 05/23/17 10:05 Baso # (Auto) 0.03 K/mm3 (0.01-0.08) 05/23/17 10:05 Manual Slide Review Abnormal smear 05/23/17 10:05 Sodium 133 mEq/L (136-145) L 05/23/17 10:05 Potassium 3.2 mEq/L (3.5-5.1) L 05/23/17 10:05 Chloride 98 mEq/L (98-107) 05/23/17 10:05 Carbon Dioxide 24 mEq/L (21-32) 05/23/17 10:05 Anion Gap 14.2 (5-15) 05/23/17 10:05 BUN 12 mg/dL (7-18) 05/23/17 10:05 Creatinine 1.0 mg/dL (0.55-1.02) 05/23/17 10:05 Est Cr Clr Drug Dosing 40.81 mL/min 05/23/17 10:05 Estimated GFR (MDRD) 55 mL/min (>60) 05/23/17 10:05 BUN/Creatinine Ratio 12.0 (14-18) L 05/23/17 10:05 Glucose 237 mg/dL (83-115) H 05/23/17 10:05 POC Glucose 185 mg/dL (83-110) H 05/23/17 06:57 Lactic Acid 3.5 mmol/L (0.4-2.0) H 05/23/17 01:15 Calcium 8.6 mg/dL (8.5-10.1) 05/23/17 10:05 Magnesium 1.2 mg/dl (1.8-2.4) L 05/23/17 10:05 Total Bilirubin 0.8 mg/dL (0.2-1.0) 05/23/17 00:43 AST 25 U/L (15-37) 05/23/17 00:43 ALT 35 U/L (14-59) 05/23/17 00:43 Alkaline Phosphatase 105 U/L (46-116) 05/23/17 00:43 C-Reactive Protein 17.0 mg/dL (<1.0) H* 05/23/17 10:05 Total Protein 9.7 g/dl (6.4-8.2) H 05/23/17 00:43 Albumin 3.7 g/dl (3.4-5.0) 05/23/17 00:43 Globulin 6.0 gm/dL 05/23/17 00:43 Albumin/Globulin Ratio 0.6 (1-2) L 05/23/17 00:43 Lipase 50 U/L (73-393) L 05/23/17 00:43 Urine Color [place] (Yellow) H 05/23/17 03:33 Urine Appearance Cloudy (Clear) H 05/23/17 03:33 Urine pH 6.0 (5.0-8.0) 05/23/17 03:33 Ur Specific [place] > or = 1.030 (1.005-1.030) 05/23/17 03:33 Urine Protein 3+ (Negative) H 05/23/17 03:33 Urine Glucose (UA) Negative (Negative) 05/23/17 03:33 Urine Ketones Negative (Negative) 05/23/17 03:33 Urine Occult Blood 2+ (Negative) H 05/23/17 03:33 Urine Nitrite Positive (Negative) H 05/23/17 03:33 Urine Bilirubin 1+ (Negative) H 05/23/17 03:33 Urine Urobilinogen 0.2 (0.2-1.0) 05/23/17 03:33 Ur Leukocyte Esterase Trace (Negative) H 05/23/17 03:33 Above lab values reviewed and noted. - Allergies Allergies/Adverse Reactions: Allergies Allergy/AdvReac Type Severity Reaction Status Date / Time No Known Allergies Allergy Verified 05/23/17 00:50 - Anesthesia Plan Pre-Op Medication Ordered: None - Acknowledgements Anesthesia Type Planned: MAC Pt an Appropriate Candidate for the Planned Anesthesia: Yes Alternatives and Risks of Anesthesia Discussed w Pt/Guardian: Yes Pt/Guardian Understands and Agrees with Anesthesia Plan: Yes PreAnesthesia Questionnaire HEENT History: Reports: Cataract, Impaired Vision Other HEENT History: wears eyeglasses, strep throat Cardiovascular History: Reports: High Cholesterol, Hypertension Gastrointestinal History: Reports: Chronic Constipation Genitourinary History: Reports: UTI, 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 - Past Surgical History HEENT Surgical History: Reports: Cataract Surgery, Tonsillectomy GI Surgical History: Reports: None - SUBSTANCE USE Smoking Status *Q: Former Smoker Tobacco Use Within Last Twelve Months: No Second Hand Smoke Exposure: No Recreational Drug Use History: No - HOME MEDS Home Medications: Home Meds Hydrochlorothiazide 25 mg PO DAILY 02/03/17 [History] Insulin Aspart [NovoLOG] 0 unit SQ ASDIRECTED PRN 02/03/17 [History] Insulin Glarg,Human.Rec.Analog [LantUS Solostar] 72 units SQ BEDTIME 02/03/17 [ History] Levothyroxine [Synthroid] 50 mcg PO DAILY 02/03/17 [History] Losartan Potassium [Cozaar] 100 mg PO DAILY 02/03/17 [History] Simvastatin [Zocor] 20 mg PO BEDTIME 02/03/17 [History] amLODIPine [Norvasc] 5 mg PO DAILY 02/03/17 [History] - CURRENT (IN HOUSE) MEDS Current Meds: Current Medications Amlodipine Besylate (Norvasc) 5 mg PO DAILY [facility] Last Admin: 05/23/17 11:14 Dose: 5 mg Dextrose/Water (Dextrose 50% In Water) 50 ml IVPUSH ASDIRECTED PRN PRN Reason: Hypoglycemia Hydralazine HCl (Apresoline) 20 mg IVPUSH Q4H PRN PRN Reason: Hypertension Hydrochlorothiazide (Hydrochlorothiazide) 25 mg PO DAILY [facility] Last Admin: 05/23/17 11:13 Dose: 25 mg Sodium Chloride (Normal Saline) 1,000 mls @ 125 mls/hr IV ASDIRECTED [facility] Last Admin: 05/23/17 00:57 Dose: 125 mls/hr Potassium Chloride/Sodium Chloride (Normal Saline With 20 Meq Kcl) 1,000 mls @ 100 mls/hr IV ONETIME ONE Stop: 05/23/17 14:34 Last Admin: 05/23/17 04:35 Dose: 100 mls/hr Levofloxacin/Dextrose 250 mg/ (Premix) 50 mls @ 50 mls/hr IV Q24H [facility] Vancomycin HCl 1 gm/ Sodium (Chloride) 250 mls @ 250 mls/hr IV Q24H [facility] Piperacillin Sod/Tazobactam (Sod 4.5 gm/ Sodium Chloride) 100 mls @ 25 mls/hr IV Q8H [facility] Insulin Aspart (Novolog) 0 unit SUBCUT QIDACANDBED [facility] PRN Reason: Protocol Last Admin: 05/23/17 10:18 Dose: Not Given Insulin Detemir (Levemir) 36 unit SUBCUT BID [facility] Levothyroxine Sodium (Synthroid) 50 mcg PO ACBREAKFAST [facility] Last Admin: 05/23/17 11:13 Dose: 50 mcg Lorazepam (Ativan) 2 mg IVPUSH Q4H PRN PRN Reason: Seizures Losartan Potassium (Cozaar) 100 mg PO DAILY [facility] Last Admin: 05/23/17 11:14 Dose: 100 mg Magnesium Sulfate (Pharmacy To Dose - Magnesium Replacement) 0 dose .XX ASDIRECTED PRN PRN Reason: RX TO WATCH MAG LEVELS Metoprolol Tartrate (Lopressor) 5 mg IVPUSH Q4H PRN PRN Reason: Tachycardia Ondansetron HCl (Zofran) 4 mg IVPUSH Q4H PRN PRN Reason: Nausea/Vomiting Last Admin: 05/23/17 11:22 Dose: 4 mg Potassium Chloride (Pharmacy To Dose - Potassium Replacement) 0 dose .XX ASDIRECTED PRN PRN Reason: RX TO WATCH K LEVELS Saccharomyces Boulardii (Florastor) 250 mg PO BID [facility] Simvastatin (Zocor) 20 mg PO BEDTIME [facility] Sodium Chloride (Saline Flush) 10 ml FLUSH ASDIRECTED PRN PRN Reason: Keep Vein Open Last Admin: 05/23/17 00:55 Dose: 10 ml Vancomycin HCl (Pharmacy To Dose - Vancomycin) 0 dose .XX ASDIRECTED PRN PRN Reason: RX TO DOSE Discontinued Medications Levofloxacin/Dextrose (Levaquin In D5w 750 Mg/150 Ml) Confirm Administered Dose 150 mls @ as directed IV .STK-MED ONE Stop: 05/23/17 02:51 Potassium Chloride/Sodium Chloride (Normal Saline With 20 Meq Kcl) Confirm Administered Dose 1,000 mls @ as directed .ROUTE .STK-MED ONE Stop: 05/23/17 04:38 Levofloxacin/Dextrose 750 mg/ (Premix) 150 mls @ 100 mls/hr IV ONETIME ONE Stop: 05/23/17 10:25 Last Admin: 05/23/17 02:52 Dose: 100 mls/hr Piperacillin Sod/Tazobactam (Sod 4.5 gm/ Sodium Chloride) 100 mls @ 200 mls/hr IV ONETIME ONE Stop: 05/23/17 10:29 Last Admin: 05/23/17 11:12 Dose: 200 mls/hr Metoclopramide HCl (Reglan) Confirm Administered Dose 10 mg .ROUTE .STK-MED ONE Stop: 05/23/17 02:50 Metoclopramide HCl (Reglan) 10 mg IVPUSH ONETIME ONE Stop: 05/23/17 08:56 Last Admin: 05/23/17 02:49 Dose: 10 mg Ondansetron HCl (Zofran) 4 mg IVPUSH ONETIME ONE Stop: 05/23/17 00:48 Last Admin: 05/23/17 00:57 Dose: 4 mg
[2017-05-23] MEDS ORDERED: HYDROmorphone 0.5 MG/0.5 ML Syringe IVPUSH PRN (12:22)
[2017-05-23] MEDS ORDERED: Acetaminophen 325 MG Tab PO PRN (12:22)
[2017-05-23] MEDS: Acetaminophen/HYDROcodone 325-5 MG Tab PO PRN (12:33)
[2017-05-23] MEDS ORDERED: Docusate Sodium 100 MG Cap PO PRN (12:55)
[2017-05-23] MEDS ORDERED: Polyethylene Glycol 3350 Powder 17 GM Packet PO PRN (12:55)
[2017-05-23] MEDS ORDERED: Albuterol/Ipratropium 3.0-0.5 MG/3 ML Neb Soln NEB PRN (12:55)
[2017-05-23] MEDS ORDERED: Bisacodyl 5 MG Tab PO PRN (12:55)
[2017-05-23] MEDS: SODIUM CHLORIDE 0.9% IV SCH (13:54)
[2017-05-23] MEDS: VANCOMYCIN IV SCH (13:54)
[2017-05-23] MEDS ORDERED: Enoxaparin 30 MG/0.3 ML Syringe SUBCUT ONE (14:22)
[2017-05-23] MEDS ORDERED: Magnesium Sulfate/Water 4 GM in Premix Bag 1 BAG IV ONE (14:30)
--- NOTE | 2017-05-23 14:34 | CR ---
Chest: Frontal view of the chest was obtained. Comparison: No previous study. Heart size and mediastinum are within normal limits. Lungs are clear. Bony structures are grossly intact. Impression: 1. Nothing acute is appreciated on frontal chest x-ray. Diagnostic code #1
[2017-05-23] MEDS: Potassium Chloride 20 MEQ Tab.ER PO SCH ×2 (15:50→17:56)
[2017-05-23] MEDS ORDERED: Scopolamine 1.5 MG Transdermal Patch TRDERM ONE (16:01)
[2017-05-23] MEDS: Bisacodyl 10 MG Supp RECTAL PRN (16:22)
[2017-05-23] MEDS: Potassium Chloride 10 MEQ in Premix Bag 1 BAG IV SCH ×4 (16:26→21:45)
[2017-05-23] MEDS: Piperacillin/Tazobactam 4.5 GM in Sodium Chloride 0.9% 100 ML IV SCH (17:00)
[2017-05-23] MEDS ORDERED: Temazepam 15 MG Cap PO PRN (21:00)
[2017-05-23] MEDS: Saccharomyces Boulardii (Probiotic) 250 MG Cap PO SCH (21:40)
[2017-05-23] MEDS: Simvastatin 20 MG Tab PO SCH (21:41)
[2017-05-23] MEDS: Insulin Detemir 100 Units/ML 3 ML Pen SUBCUT SCH (21:52)
[2017-05-24] MEDS: Levofloxacin/Dextrose 5%-Water 250 MG in Premix Bag 1 BAG IV SCH (01:39)
[2017-05-24] MEDS: Piperacillin/Tazobactam 4.5 GM in Sodium Chloride 0.9% 100 ML IV SCH ×3 (02:44→18:46)
[2017-05-24] MEDS: Ondansetron 4 MG/2 ML SDV IVPUSH PRN (05:44)
[2017-05-24] MEDS: Levothyroxine 50 MCG Tab PO SCH (06:31)
[2017-05-24] MEDS: Bisacodyl 10 MG Supp RECTAL PRN (06:33)
--- NOTE | 2017-05-24 07:08 | CONS ---
CONSULTING PHYSICIAN: Nicholas Powell MD DATE OF CONSULTATION: 05/23/2017 HISTORY OF PRESENT ILLNESS: The patient is a 72-year-old who presented to the emergency room today with nausea and vomiting, inability eat. The patient was recently seen at [facility] for pneumonia and UTI, which was treated. She had an infected left great toe at that time and callus with an ulcer on the right mid foot. She had been seen in [place] by Dr. Millan and they have been trimming these. She was doing well and having the antibiotics. The foot looks good. She was discharged on the and has been walking on it since and now has infection of that left big toe. She also is diabetic and has a collapsed foot on the right with callus, which seemed to be controlled. PAST MEDICAL HISTORY: UTI; recent pneumonia, which has resolved; history of diabetes type 2; hypothyroidism; and hypertension. SOCIAL HISTORY: Former smoker, she has quit smoking. No alcohol. No drug use. REVIEW OF SYSTEMS: No chest pain, shortness of breath, hoarseness, wheezing. Did have a little cough, but this has resolved. No fainting, weakness, numbness, or convulsions. Has a little numbness in the feet, but denies any the claudication. FAMILY HISTORY: Not known. ALLERGIES: None known. PHYSICAL EXAMINATION: GENERAL: Alert, cooperative female. VITAL SIGNS: Temperature 99, pulse 109, respirations 20, blood pressure 140/51. HEENT: Eyes: Sclerae white. Extraocular muscle motion normal. Oral Cavity: Healthy mucous membrane with mouth and tongue. NECK: Supple. No nodes. No thyromegaly. LUNGS: Clear. No rales, rhonchi, fremitus, dullness. HEART: Heart tones regular rate. No S3, S4, or jugular venous distention. ABDOMEN: Soft. No tenderness, guarding, rebound. EXTREMITIES: Moves all 4 extremities. No sensorineural deficit. SKIN: Warm and dry. NEUROLOGIC: The patient is alert and cooperative. PSYCHIATRIC: Exam normal. MUSCULOSKELETAL: Examination of the feet, I do not feel any pulses, but the feet are warm. The right foot shows collapse of the forefoot with callus and an ulcer under the callus, which is stable. On the left foot, the toe shows a small opening in the dorsum of the toe, which extends towards the phalanx of the left big toe. There is redness of the toe, which extends down to the base of the toe and on motion of the toe, there is tenderness. There is sensation in the toe, but some evidence of peripheral neuropathy. LABORATORY DATA: Shows white count of 7000, hemoglobin 11, and platelet count is 317. BUN is 10 with creatinine 1.4. An estimated creatinine clearance about 40. Lactic acid is 3.5. Glucose was 185. I do not have an A1c. Nitrites are positive in the urine. 2+ occult blood in the urine and trace leukocyte esterase. Chest x-ray is normal. ASSESSMENT: Infected toe, diabetic feet, and active urinary sediment. I suspect either a urinary tract infection and possible infection into at least the tendon of the right big toe and might be into the bone. RECOMMENDATION: My recommendation is to proceed with debridement of the toe to explore it and see where the infection goes. Give antibiotics as you are and we will shave off the callus on the forefoot of the right foot. We will do this tomorrow under IV sedation. Risks and complications were discussed with the patient, she understands and consents. MMODAL /[id number]
[2017-05-24] MEDS: Insulin Aspart 100 Units/ML 3 ML Pen SUBCUT SCH ×4 (07:53→21:18)
--- NOTE | 2017-05-24 09:59 | PCM.PN ---
- General Info Date of Service: 05/24/17 Admission Dx/Problem (Free Text): Diabetic Foot and Toe Ulcer Subjective Update: Follow Up Functional Status: Reports: Pain Controlled, Tolerating Diet, Urinating. Denies : Ambulating, New Symptoms - Review of Systems General: Reports: Fever, Chills. Denies: Weakness, Fatigue, Malaise HEENT: Reports: No Symptoms Pulmonary: Reports: Cough, Sputum. Denies: Shortness of Breath Cardiovascular: Denies: Chest Pain, Palpitations, Dyspnea on Exertion, Lightheadedness Gastrointestinal: Reports: Abdominal Pain, Decreased Appetite, Nausea, Vomiting. Denies: Diarrhea Genitourinary: Reports: No Symptoms Musculoskeletal: Reports: Other (infected left great toe and right foot) Skin: Reports: No Symptoms Neurological: Reports: Difficulty Walking, Gait Disturbance. Denies: Confusion , Dizziness, Weakness Psychiatric: Denies: Depression, Anxiety, Agitation, Cravings, Hallucinations Systems Review Comment:: No overnight or acute issues. She feels much better. She has no new complaints. She is scheduled for I&D today. - Patient Data Vitals - Most Recent: Last Vital Signs Temp 37.6 C 05/24/17 02:36 Pulse 86 05/24/17 02:36 Resp 15 05/24/17 02:36 BP 120/68 05/24/17 02:36 Pulse Ox 96 05/24/17 02:36 Weight - Most Recent: 83.189 kg I&O - Last 24 Hours: Intake & Output 05/23/17 05/24/17 05/24/17 22:59 06:59 14:59 Intake Total 450 Balance 450 Lab Results Last 24 Hours: Laboratory Results - last 24 hr 05/23/17 05/23/17 05/23/17 Range/Units 10:05 10:05 11:34 WBC 14.78 H (3.98-10.04) K/mm3 RBC 3.91 L (3.98-5.22) M/mm3 Hgb 10.1 L (11.2-15.7) gm/L Hct 31.8 L (34.1-44.9) % MCV 81.3 (79.4-94.8) fl MCH 25.8 (25.6-32.2) pg MCHC 31.8 L (32.2-35.5) g/dl RDW Std Deviation 46.0 (36.4-46.3) fL Plt Count 284 (182-369) K/mm3 MPV 9.0 L (9.4-12.3) fl Neut % (Auto) 83.3 H (34.0-71.1) % Lymph % (Auto) 8.5 L (19.3-51.7) % [place] % (Auto) 7.2 (4.7-12.5) % Eos % (Auto) 0 L (0.7-5.8) Baso % (Auto) 0.2 (0.1-1.2) % Neut # (Auto) 12.31 H (1.56-6.13) K/mm3 Lymph # (Auto) 1.26 (1.18-3.74) K/mm3 [place] # (Auto) 1.06 H (0.24-0.36) K/mm3 Eos # (Auto) 0.00 L (0.04-0.36) K/mm3 Baso # (Auto) 0.03 (0.01-0.08) K/mm3 Manual Slide Review Abnormal smear Sodium 133 L (136-145) mEq/L Potassium 3.2 L (3.5-5.1) mEq/L Chloride 98 (98-107) mEq/L Carbon Dioxide 24 (21-32) mEq/L Anion Gap 14.2 (5-15) BUN 12 (7-18) mg/dL Creatinine 1.0 (0.55-1.02) mg/dL Est Cr Clr Drug Dosing 40.81 mL/min Estimated GFR (MDRD) 55 (>60) mL/min BUN/Creatinine Ratio 12.0 L (14-18) Glucose 237 H (83-115) mg/dL POC Glucose 222 H (83-110) mg/dL Hemoglobin A1c (4.50-6.20) % Calcium 8.6 (8.5-10.1) mg/dL Magnesium 1.2 L (1.8-2.4) mg/dl C-Reactive Protein 17.0 H* (<1.0) mg/dL Free T4 (0.76-1.46) ng/dL TSH 3rd Generation (0.358-3.74) uIU/mL 05/23/17 05/23/17 05/23/17 Range/Units 16:59 17:14 18:10 WBC (3.98-10.04) K/mm3 RBC (3.98-5.22) M/mm3 Hgb (11.2-15.7) gm/L Hct (34.1-44.9) % MCV (79.4-94.8) fl MCH (25.6-32.2) pg MCHC (32.2-35.5) g/dl RDW Std Deviation (36.4-46.3) fL Plt Count (182-369) K/mm3 MPV (9.4-12.3) fl Neut % (Auto) (34.0-71.1) % Lymph % (Auto) (19.3-51.7) % [place] % (Auto) (4.7-12.5) % Eos % (Auto) (0.7-5.8) Baso % (Auto) (0.1-1.2) % Neut # (Auto) (1.56-6.13) K/mm3 Lymph # (Auto) (1.18-3.74) K/mm3 [place] # (Auto) (0.24-0.36) K/mm3 Eos # (Auto) (0.04-0.36) K/mm3 Baso # (Auto) (0.01-0.08) K/mm3 Manual Slide Review Sodium 132 L (136-145) mEq/L Potassium 3.2 L (3.5-5.1) mEq/L Chloride 98 (98-107) mEq/L Carbon Dioxide 24 (21-32) mEq/L Anion Gap 13.2 (5-15) BUN 14 (7-18) mg/dL Creatinine 1.0 (0.55-1.02) mg/dL Est Cr Clr Drug Dosing 40.81 mL/min Estimated GFR (MDRD) 55 (>60) mL/min BUN/Creatinine Ratio 14.0 (14-18) Glucose 269 H (83-115) mg/dL POC Glucose 296 H 254 H (83-110) mg/dL Hemoglobin A1c (4.50-6.20) % Calcium 8.4 L (8.5-10.1) mg/dL Magnesium 3.2 H (1.8-2.4) mg/dl C-Reactive Protein (<1.0) mg/dL Free T4 1.11 (0.76-1.46) ng/dL TSH 3rd Generation 3.903 H (0.358-3.74) uIU/mL 05/23/17 05/23/17 05/24/17 Range/Units 18:10 21:32 05:43 WBC (3.98-10.04) K/mm3 RBC (3.98-5.22) M/mm3 Hgb (11.2-15.7) gm/L Hct (34.1-44.9) % MCV (79.4-94.8) fl MCH (25.6-32.2) pg MCHC (32.2-35.5) g/dl RDW Std Deviation (36.4-46.3) fL Plt Count (182-369) K/mm3 MPV (9.4-12.3) fl Neut % (Auto) (34.0-71.1) % Lymph % (Auto) (19.3-51.7) % [place] % (Auto) (4.7-12.5) % Eos % (Auto) (0.7-5.8) Baso % (Auto) (0.1-1.2) % Neut # (Auto) (1.56-6.13) K/mm3 Lymph # (Auto) (1.18-3.74) K/mm3 [place] # (Auto) (0.24-0.36) K/mm3 Eos # (Auto) (0.04-0.36) K/mm3 Baso # (Auto) (0.01-0.08) K/mm3 Manual Slide Review Sodium (136-145) mEq/L Potassium (3.5-5.1) mEq/L Chloride (98-107) mEq/L Carbon Dioxide (21-32) mEq/L Anion Gap (5-15) BUN (7-18) mg/dL Creatinine (0.55-1.02) mg/dL Est Cr Clr Drug Dosing mL/min Estimated GFR (MDRD) (>60) mL/min BUN/Creatinine Ratio (14-18) Glucose (83-115) mg/dL POC Glucose 275 H 176 H (83-110) mg/dL Hemoglobin A1c 8.30 H (4.50-6.20) % Calcium (8.5-10.1) mg/dL Magnesium (1.8-2.4) mg/dl C-Reactive Protein (<1.0) mg/dL Free T4 (0.76-1.46) ng/dL TSH 3rd Generation (0.358-3.74) uIU/mL 05/24/17 05/24/17 Range/Units 06:10 06:10 WBC 14.55 H (3.98-10.04) K/mm3 RBC 3.75 L (3.98-5.22) M/mm3 Hgb 9.7 L (11.2-15.7) gm/L Hct 30.7 L (34.1-44.9) % MCV 81.9 (79.4-94.8) fl MCH 25.9 (25.6-32.2) pg MCHC 31.6 L (32.2-35.5) g/dl RDW Std Deviation 47.3 H (36.4-46.3) fL Plt Count 302 (182-369) K/mm3 MPV 9.1 L (9.4-12.3) fl Neut % (Auto) 81.3 H (34.0-71.1) % Lymph % (Auto) 10.0 L (19.3-51.7) % [place] % (Auto) 6.7 (4.7-12.5) % Eos % (Auto) 0.7 (0.7-5.8) Baso % (Auto) 0.3 (0.1-1.2) % Neut # (Auto) 11.84 H (1.56-6.13) K/mm3 Lymph # (Auto) 1.46 (1.18-3.74) K/mm3 [place] # (Auto) 0.97 H (0.24-0.36) K/mm3 Eos # (Auto) 0.10 (0.04-0.36) K/mm3 Baso # (Auto) 0.04 (0.01-0.08) K/mm3 Manual Slide Review Abnormal smear Sodium 131 L (136-145) mEq/L Potassium 3.7 (3.5-5.1) mEq/L Chloride 98 (98-107) mEq/L Carbon Dioxide 23 (21-32) mEq/L Anion Gap 13.7 (5-15) BUN 14 (7-18) mg/dL Creatinine 1.1 H (0.55-1.02) mg/dL Est Cr Clr Drug Dosing 37.10 mL/min Estimated GFR (MDRD) 49 (>60) mL/min BUN/Creatinine Ratio 12.7 L (14-18) Glucose 167 H (83-115) mg/dL POC Glucose (83-110) mg/dL Hemoglobin A1c (4.50-6.20) % Calcium 8.5 (8.5-10.1) mg/dL Magnesium 2.2 (1.8-2.4) mg/dl C-Reactive Protein 19.0 H* (<1.0) mg/dL Free T4 (0.76-1.46) ng/dL TSH 3rd Generation (0.358-3.74) uIU/mL Med Orders - Current: Current Medications Acetaminophen (Tylenol) 650 mg PO Q4H PRN PRN Reason: Pain (Mild 1-3)/fever Hydrocodone Bitart/Acetaminophen (Kaplan 325-5 Mg) 1 tab PO Q4H PRN PRN Reason: Pain (moderate 4-6) Last Admin: 05/23/17 12:33 Dose: 1 tab Albuterol/Ipratropium (Duoneb 3.0-0.5 Mg/3 Ml) 3 ml NEB Q4H PRN PRN Reason: Shortness Of Breath/wheezing Amlodipine Besylate (Norvasc) 5 mg PO DAILY [facility] Last Admin: 05/23/17 11:14 Dose: 5 mg Bisacodyl (Dulcolax) 5 mg PO DAILY PRN PRN Reason: Constipation Bisacodyl (Dulcolax) 10 mg RECTAL DAILY PRN PRN Reason: Constipation Last Admin: 05/24/17 06:33 Dose: 10 mg Dextrose/Water (Dextrose 50% In Water) 50 ml IVPUSH ASDIRECTED PRN PRN Reason: Hypoglycemia Docusate Sodium (Colace) 100 mg PO BID PRN PRN Reason: Constipation Enoxaparin Sodium (Lovenox) 30 mg SUBCUT DAILY [facility] Hydralazine HCl (Apresoline) 20 mg IVPUSH Q4H PRN PRN Reason: Hypertension Hydrochlorothiazide (Hydrochlorothiazide) 25 mg PO DAILY [facility] Last Admin: 05/23/17 11:13 Dose: 25 mg Hydromorphone HCl (Dilaudid) 0.5 mg IVPUSH Q4H PRN PRN Reason: Pain (severe 7-10) Levofloxacin/Dextrose 250 mg/ (Premix) 50 mls @ 50 mls/hr IV Q24H [facility] Last Admin: 05/24/17 01:39 Dose: 50 mls/hr Piperacillin Sod/Tazobactam (Sod 4.5 gm/ Sodium Chloride) 100 mls @ 25 mls/hr IV Q8H [facility] Last Admin: 05/24/17 02:44 Dose: 25 mls/hr Vancomycin HCl 250 mg/Vancomycin HCl 1 gm/ Sodium Chloride 250 mls @ 166 mls/ hr IV Q24H [facility] Last Admin: 05/23/17 13:54 Dose: 166 mls/hr Insulin Aspart (Novolog) 0 unit SUBCUT QIDACANDBED [facility] PRN Reason: Protocol Last Admin: 05/24/17 07:53 Dose: Not Given Insulin Detemir (Levemir) 36 unit SUBCUT BID [facility] Last Admin: 05/23/17 21:52 Dose: 36 units Levothyroxine Sodium (Synthroid) 50 mcg PO ACBREAKFAST [facility] Last Admin: 05/24/17 06:31 Dose: Not Given Lorazepam (Ativan) 2 mg IVPUSH Q4H PRN PRN Reason: Seizures Losartan Potassium (Cozaar) 100 mg PO DAILY [facility] Last Admin: 05/23/17 11:14 Dose: 100 mg Magnesium Sulfate (Pharmacy To Dose - Magnesium Replacement) 0 dose .XX ASDIRECTED PRN PRN Reason: RX TO WATCH MAG LEVELS Metoprolol Tartrate (Lopressor) 5 mg IVPUSH Q4H PRN PRN Reason: Tachycardia Miscellaneous Information (Remove Patch) 1 ea TRDERM ONETIME ONE Stop: 05/26/17 16:00 Ondansetron HCl (Zofran) 4 mg IVPUSH Q4H PRN PRN Reason: Nausea/Vomiting Last Admin: 05/24/17 05:44 Dose: 4 mg Polyethylene Glycol (Miralax) 17 gm PO DAILY PRN PRN Reason: Constipation Potassium Chloride (Pharmacy To Dose - Potassium Replacement) 0 dose .XX ASDIRECTED PRN PRN Reason: RX TO WATCH K LEVELS Saccharomyces Boulardii (Florastor) 250 mg PO BID [facility] Last Admin: 05/23/17 21:40 Dose: 250 mg Senna/Docusate Sodium (Senna Plus) 1 tab PO BID PRN PRN Reason: Constipation Simvastatin (Zocor) 20 mg PO BEDTIME [facility] Last Admin: 05/23/17 21:41 Dose: 20 mg Sodium Chloride (Saline Flush) 10 ml FLUSH ASDIRECTED PRN PRN Reason: Keep Vein Open Last Admin: 05/23/17 00:55 Dose: 10 ml Temazepam (Restoril) 15 mg PO BEDTIME PRN PRN Reason: Sleep Vancomycin HCl (Pharmacy To Dose - Vancomycin) 0 dose .XX ASDIRECTED PRN PRN Reason: RX TO DOSE Discontinued Medications Enoxaparin Sodium (Lovenox) 30 mg SUBCUT ONETIME ONE Stop: 05/23/17 14:23 Last Admin: 05/23/17 17:56 Dose: Not Given Sodium Chloride (Normal Saline) 1,000 mls @ 125 mls/hr IV ASDIRECTED [facility] Last Admin: 05/23/17 00:57 Dose: 125 mls/hr Levofloxacin/Dextrose (Levaquin In D5w 750 Mg/150 Ml) Confirm Administered Dose 150 mls @ as directed IV .STK-MED ONE Stop: 05/23/17 02:51 Last Admin: 05/23/17 23:45 Dose: Not Given Potassium Chloride/Sodium Chloride (Normal Saline With 20 Meq Kcl) Confirm Administered Dose 1,000 mls @ as directed .ROUTE .STK-MED ONE Stop: 05/23/17 04:38 Last Admin: 05/23/17 23:45 Dose: Not Given Levofloxacin/Dextrose 750 mg/ (Premix) 150 mls @ 100 mls/hr IV ONETIME ONE Stop: 05/23/17 10:25 Last Admin: 05/23/17 02:52 Dose: 100 mls/hr Potassium Chloride/Sodium Chloride (Normal Saline With 20 Meq Kcl) 1,000 mls @ 100 mls/hr IV ONETIME ONE Stop: 05/23/17 14:34 Last Admin: 05/23/17 04:35 Dose: 100 mls/hr Vancomycin HCl 1 gm/ Sodium (Chloride) 250 mls @ 250 mls/hr IV Q24H [facility] Piperacillin Sod/Tazobactam (Sod 4.5 gm/ Sodium Chloride) 100 mls @ 200 mls/hr IV ONETIME ONE Stop: 05/23/17 10:29 Last Admin: 05/23/17 11:12 Dose: 200 mls/hr Magnesium Sulfate 4 gm/ Premix 100 mls @ 50 mls/hr IV ONETIME ONE Stop: 05/23/17 16:29 Last Admin: 05/23/17 15:50 Dose: 50 mls/hr Potassium Chloride 10 meq/ (Premix) 100 mls @ 100 mls/hr IV Q1H [facility] Stop: 05/23/17 20:29 Last Admin: 05/23/17 21:45 Dose: 100 mls/hr Metoclopramide HCl (Reglan) Confirm Administered Dose 10 mg .ROUTE .STK-MED ONE Stop: 05/23/17 02:50 Last Admin: 05/23/17 23:45 Dose: Not Given Metoclopramide HCl (Reglan) 10 mg IVPUSH ONETIME ONE Stop: 05/23/17 08:56 Last Admin: 05/23/17 02:49 Dose: 10 mg Ondansetron HCl (Zofran) 4 mg IVPUSH ONETIME ONE Stop: 05/23/17 00:48 Last Admin: 05/23/17 00:57 Dose: 4 mg Potassium Chloride (Klor-Con M20) 40 meq PO Q4H [facility] Stop: 05/23/17 22:31 Last Admin: 05/23/17 17:56 Dose: Not Given Scopolamine (Transderm-Scop) 1.5 mg TRDERM Q72H ONE Stop: 05/23/17 16:02 Last Admin: 05/23/17 16:22 Dose: 1.5 mg - Exam General: Alert, Oriented, Cooperative, No Acute Distress HEENT: Pupils Equal, Pupils Reactive, EOMI, Mucous Membr. Moist/[place] Neck: Supple, Trachea Midline, No JVD, No Thyromegaly Lungs: Normal Respiratory Effort, Decreased Breath Sounds Cardiovascular: Regular Rate, Regular Rhythm GI/Abdominal Exam: Normal Bowel Sounds, Soft, Non-Tender, No Organomegaly, No Distention, No Abnormal Bruit, No Mass (Female) Exam: Deferred Back Exam: Normal Inspection, Decreased Range of Motion Extremities: Normal Capillary Refill, Other (Right Foot: Dime sized ulcer at the arch, no erythema, mild edema, non tender to the touch, foot is flat; Left Foot: Great toe is red, edematous, tender to the touch and with abscess) Skin: Warm, Intact Wound/Incisions: No Drainage, Erythema Neurological: No New Focal Deficit. No: Normal Gait Psy/Mental Status: Alert, Normal Affect, Normal Mood - Problem List Review Problem List Initiated/Reviewed/Updated: Yes - My Orders Last 24 Hours: My Active Orders 05/23/17 09:36 LORazepam [Ativan] 2 mg IVPUSH Q4H PRN Metoprolol Tartrate [Lopressor] 5 mg IVPUSH Q4H PRN hydrALAZINE [Apresoline] 20 mg IVPUSH Q4H PRN 05/23/17 09:41 Blood Glucose Check, Bedside [RC] QIDACANDBED Dextrose 50% in Water 50 ml IVPUSH ASDIRECTED PRN 05/23/17 09:45 Insulin Aspart [NovoLOG] See Protocol SUBCUT QIDACANDBED Magnesium Rep Pharmacy to Dose [Pharmacy to Dose - Magnesium Replacement] 0 dose .XX ASDIRECTED PRN Potassium Rep Pharmacy to Dose [Pharmacy to Dose - Potassium Replacement] 0 dose .XX ASDIRECTED PRN Vancomycin Pharmacy to Dose [Pharmacy to Dose - Vancomycin] 0 dose .XX ASDIRECTED PRN 05/23/17 10:00 Hydrochlorothiazide 25 mg PO DAILY Levothyroxine [Synthroid] 50 mcg PO ACBREAKFAST Losartan [Cozaar] 100 mg PO DAILY amLODIPine [Norvasc] 5 mg PO DAILY 05/23/17 10:06 Ondansetron [Zofran] 4 mg IVPUSH Q4H PRN 05/23/17 10:38 Schedule Procedure [COMM] Urgent 05/23/17 12:22 Oxygen Therapy [RC] PRN Acetaminophen [Tylenol] 650 mg PO Q4H PRN Acetaminophen/HYDROcodone [Kaplan 325-5 MG] 1 tab PO Q4H PRN HYDROmorphone [Dilaudid] 0.5 mg IVPUSH Q4H PRN 05/23/17 12:52 Patient Status [ADT] Routine 05/23/17 12:55 Intake and Output [RC] 04,16 Up With Assistance [RC] ASDIRECTED Up ad Samara [RC] ASDIRECTED VTE/DVT Education [RC] 10,22 Vital Signs [RC] Q4HR Albuterol/Ipratropium [DuoNeb 3.0-0.5 MG/3 ML] 3 ml NEB Q4H PRN Bisacodyl [Dulcolax] 5 mg PO DAILY PRN Docusate Sodium [Colace] 100 mg PO BID PRN Docusate Sodium/Sennosides [Senna Plus] 1 tab PO BID PRN Polyethylene Glycol 3350 [MiraLAX] 17 gm PO DAILY PRN Resuscitation Status Routine 05/23/17 12:58 RT Aerosol Therapy [RC] ASDIRECTED 05/23/17 13:00 Notify Provider Consults [RC] ASDIRECTED Consult to Case Management [CONS] Routine Consult to Diabetic Nurse Specialist [CONS] Routine Consult to Tobacco Sorter [CONS] Routine Consult to Physician [CONS] Routine Consult to Yard Hostler [CONS] Routine Consult to Spiritual Care [CONS] Routine OT Evaluation and Treatment [CONS] Routine PT Evaluation and Treatment [CONS] Routine 05/23/17 14:00 Vancomycin 250 mg Vancomycin 1 gm Sodium Chloride 0.9% [Normal Saline] 250 ml IV Q24H 05/23/17 16:00 Consult to Speech Language Pathology [TIRE BUSTER Evaluation and Treatment] [CONS] Routine 05/23/17 16:03 Bisacodyl [Dulcolax] 10 mg RECTAL DAILY PRN 05/23/17 18:00 Piperacillin/Tazobactam [Zosyn] 4.5 gm Sodium Chloride 0.9% [Normal Saline] 100 ml IV Q8H 05/23/17 21:00 Insulin Detemir [Levemir] 36 unit SUBCUT BID Saccharomyces Boulardii [Florastor] 250 mg PO BID Simvastatin [Zocor] 20 mg PO BEDTIME Temazepam [Restoril] 15 mg PO BEDTIME PRN 05/23/17 Dinner NPO Now [Nothing per Oral Now Diet] [DIET] 05/24/17 01:00 Levofloxacin/Dextrose 5%-Water [Levaquin in D5W 250 MG/50 ML] 250 mg Premix Bag 1 bag IV Q24H 05/24/17 09:56 Consult for Substance Abuse [CONS] Routine Substance Abuse Education [OM.PC] Routine 05/24/17 12:00 Enoxaparin [Lovenox] 30 mg SUBCUT DAILY 05/25/17 05:11 BASIC METABOLIC PANEL,BMP [CHEM] AM C-REACTIVE PROTEIN [CHEM] AM CBC WITH AUTO DIFF [HEME] AM MAGNESIUM [CHEM] AM 05/26/17 05:11 BASIC METABOLIC PANEL,BMP [CHEM] AM C-REACTIVE PROTEIN [CHEM] AM CBC WITH AUTO DIFF [HEME] AM MAGNESIUM [CHEM] AM 05/26/17 13:30 VANCOMYCIN TROUGH [CHEM] Timed 05/26/17 15:59 Remove Patch 1 trisha VILLARREAL ONETIME ONE 05/27/17 05:11 BASIC METABOLIC PANEL,BMP [CHEM] AM C-REACTIVE PROTEIN [CHEM] AM CBC WITH AUTO DIFF [HEME] AM MAGNESIUM [CHEM] AM - Plan Plan:: Assessment/Plan: Acute: Diabetic Foot and Toe Ulcer - Right Foot and Left Great Toe - Risk factors DM and PAD - IV Abx: Vancomycin, Levaquin and Zosyn (due to recent hospitalization in [place]) - GS following consult: patient is scheduled for I&D today - Arterial Study today Leukocytosis - 2/2 Above - WBC is 17.33 and CRP is 17, now 14.55 and 19 respectively - Treat underlying cause - Continue to monitor Mild Hyponatremia - Na 133 --> 131 - Likely 2/2 uncontrolled BS - Continue IV fluids - Continue to follow, patient is NPO - Consider salt tablet Hyperglycemia with DM2 - BS in the upper 200s - Not sure her A1C was - Insulin regimen With ISS- insulin held due to scheduled I&D today - Accu-check QIDandHS UTI - Risk factor: DM - UA pos for UTI - Continue IV ATB - No UA Cx/Sx ordered Probable PAD - Arterial study with padnet today Resolved: Hypokalemia - K 2.8 ---> 3.7 - 2/2 inadequate intake and hyperglycemia - Currently receiving supplement - Pharmacy to replete and monitor on next level Hypomagnesemia - Mg 1.2--> 2.2 - Received Magnesium supplement - Pharmacy to replete and monitor Chronic: Impaired Vision HTN HLD Constipation Recurrent UTI DM2 Hypothyrodism Chronic Anemia Overweight Plan: She is clinically stable Routine AM Labs Continue PT/OT SW/CM for d/c planning GS following Additional orders as above Code status: 1 Abdominal/Pelvis CT scan 04/27/2017 report reads: Adenopathy most markedly in the right hemipelvis with the largest seen involving the right groin with some stranding of the adjacent fat raising the possibility of inflammatory findings. Nonspecific vague areas of decreased density seen in both kidneys which are nonspecific and an MRI examination without followed by with IV codeine U may be of benefit for further evaluation if clinically indicated. Spleen is at the upper limits of normal in size measuring approximately 12.5 cm in the greatest longitudinal dimension. Moderate scattered vascular calcifications data degenerative changes of the bony skeleton. The pelvis otherwise negative. Appendix normal in appearance.
[2017-05-24] MEDS: Insulin Detemir 100 Units/ML 3 ML Pen SUBCUT SCH ×2 (10:59→21:19)
[2017-05-24] MEDS ORDERED: Lidocaine 1% 4 ML ONE (11:34)
[2017-05-24] MEDS ORDERED: Ketamine 500 mg/10 ML MDV ONE ×2 (11:35→13:00)
[2017-05-24] MEDS ORDERED: fentaNYL 100 MCG/2 ML SDV ONE (11:35)
[2017-05-24] MEDS ORDERED: Propofol 200 MG/20 ML SDV ONE ×2 (11:35→13:06)
[2017-05-24] MEDS ORDERED: Midazolam 1 MG/ML 2 ML SDV ONE (11:35)
[2017-05-24] MEDS ORDERED: Lactated Ringers 1,000 ML ONE (11:36)
[2017-05-24] MEDS ORDERED: Lidocaine 1% 30 ML SDV ONE (12:48)
--- NOTE | 2017-05-24 13:18 | PCM.OPNOTE ---
- General Post-Op/Procedure Note Date of Surgery/Procedure: 05/24/17 Operative Procedure(s): debride ulcer rt foot and left big toe Pre Op Diagnosis: diabetic foot and toe ulcer Post-Op Diagnosis: Same Anesthesia Technique: MAC Primary Surgeon: Nicholas Powell EBL in mLs: 10 Complications: None Condition: Good Free Text/Narrative:: Intake & Output 05/23/17 05/24/17 05/24/17 23:59 07:59 15:59 Intake Total 450 Balance 450
--- NOTE | 2017-05-24 13:24 | PCM.POSTAN ---
POST ANESTHESIA ASSESSMENT - MENTAL STATUS Mental Status: Alert, Oriented - VITAL SIGNS Pulse Rate: 79 SaO2: 91 Resp Rate: 15 Blood Pressure: 104/43 Temperature: 36.7 C - RESPIRATORY Respiratory Status: Respiratory Rate WNL, Airway Patent, O2 Saturation Stable - CARDIOVASCULAR CV Status: Pulse Rate WNL, Blood Pressure Stable - GASTROINTESTINAL GI Status: No Symptoms - PAIN Pain Score: 0 - POST OP HYDRATION Hydration Status: Adequate & Stable
[2017-05-24] MEDS: Hydrochlorothiazide 25 MG Tab PO SCH (15:27)
[2017-05-24] MEDS: Saccharomyces Boulardii (Probiotic) 250 MG Cap PO SCH ×2 (15:27→21:17)
[2017-05-24] MEDS: amLODIPine 5 MG Tab PO SCH (15:27)
[2017-05-24] MEDS: Potassium Chloride 20 MEQ Tab.ER PO SCH ×2 (15:27→17:33)
[2017-05-24] MEDS: Losartan 100 MG Tab PO SCH (15:27)
[2017-05-24] MEDS: VANCOMYCIN IV SCH (15:28)
[2017-05-24] MEDS: SODIUM CHLORIDE 0.9% IV SCH (15:28)
[2017-05-24] MEDS ORDERED: Potassium Chloride 10% 20 MEQ/15 ML Soln 15 ML UD Cup PO ONE (18:15)
[2017-05-24] MEDS: Acetaminophen/HYDROcodone 325-5 MG Tab PO PRN (18:26)
[2017-05-24] MEDS: Simvastatin 20 MG Tab PO SCH (21:17)
[2017-05-24] MEDS: Enoxaparin 40 MG/0.4 ML Syringe SUBCUT SCH (21:19)
[2017-05-25] MEDS: Levofloxacin/Dextrose 5%-Water 250 MG in Premix Bag 1 BAG IV SCH (02:17)
[2017-05-25] MEDS: Piperacillin/Tazobactam 4.5 GM in Sodium Chloride 0.9% 100 ML IV SCH ×3 (02:18→17:49)
[2017-05-25] MEDS: Levothyroxine 50 MCG Tab PO SCH (06:24)
[2017-05-25] MEDS: Insulin Aspart 100 Units/ML 3 ML Pen SUBCUT SCH ×4 (07:47→22:13)
[2017-05-25] MEDS: amLODIPine 5 MG Tab PO SCH (09:07)
[2017-05-25] MEDS: Hydrochlorothiazide 25 MG Tab PO SCH (09:07)
[2017-05-25] MEDS: Saccharomyces Boulardii (Probiotic) 250 MG Cap PO SCH ×2 (09:07→22:09)
[2017-05-25] MEDS: Losartan 100 MG Tab PO SCH (09:08)
[2017-05-25] MEDS: Insulin Detemir 100 Units/ML 3 ML Pen SUBCUT SCH ×2 (09:09→22:11)
--- NOTE | 2017-05-25 09:30 | PCM48HPAN ---
Post Anesthesia Note - EVALUATION WITHIN 48HRS OF ANESTHETIC Vital Signs in Normal Range: Yes Patient Participated in Evaluation: Yes Respiratory Function Stable: Yes Airway Patent: Yes Cardiovascular Function Stable: Yes Hydration Status Stable: Yes Pain Control Satisfactory: Yes Nausea and Vomiting Control Satisfactory: Yes Mental Status Recovered: Yes
[2017-05-25] MEDS ORDERED: Magnesium Sulfate/Water 50 ML IV ONE (10:30)
[2017-05-25] MEDS: Acetaminophen/HYDROcodone 325-5 MG Tab PO PRN (10:44)
--- NOTE | 2017-05-25 13:53 | PCM.PN ---
- General Info Date of Service: 05/25/17 Admission Dx/Problem (Free Text): Follow Up Subjective Update: Follow Up Functional Status: Reports: Pain Controlled, Tolerating Diet, Urinating. Denies : New Symptoms - Review of Systems General: Denies: Fever, Weakness, Fatigue, Malaise, Chills HEENT: Reports: No Symptoms Pulmonary: Denies: Shortness of Breath Cardiovascular: Denies: Chest Pain Gastrointestinal: Denies: Abdominal Pain, Nausea, Vomiting Genitourinary: Reports: No Symptoms Musculoskeletal: Reports: Leg Pain Neurological: Reports: Difficulty Walking, Gait Disturbance. Denies: Confusion , Pre-Existing Deficit, Weakness Psychiatric: Denies: Depression, Anxiety, Agitation, Hallucinations, Suicidal Ideation Systems Review Comment:: No overnight or acute issues. She slept pretty good. She has no new complaints. She is afebrile w/ improving WBC level. Her CRP is down to 17.6 from 19. - Patient Data Vitals - Most Recent: Last Vital Signs Temp 36.5 C 05/25/17 11:50 Pulse 75 05/25/17 11:50 Resp 12 05/25/17 11:50 BP 118/70 05/25/17 11:50 Pulse Ox 94 L 05/25/17 11:50 Weight - Most Recent: 83.461 kg I&O - Last 24 Hours: Intake & Output 05/24/17 05/25/17 05/25/17 22:59 06:59 14:59 Intake Total 515 1220 240 Output Total 400 Balance 515 820 240 Lab Results Last 24 Hours: Laboratory Results - last 24 hr 05/24/17 05/24/17 05/25/17 Range/Units 17:32 21:09 05:53 WBC (3.98-10.04) K/mm3 RBC (3.98-5.22) M/mm3 Hgb (11.2-15.7) gm/L Hct (34.1-44.9) % MCV (79.4-94.8) fl MCH (25.6-32.2) pg MCHC (32.2-35.5) g/dl RDW Std Deviation (36.4-46.3) fL Plt Count (182-369) K/mm3 MPV (9.4-12.3) fl Neut % (Auto) (34.0-71.1) % Lymph % (Auto) (19.3-51.7) % [place] % (Auto) (4.7-12.5) % Eos % (Auto) (0.7-5.8) Baso % (Auto) (0.1-1.2) % Neut # (Auto) (1.56-6.13) K/mm3 Lymph # (Auto) (1.18-3.74) K/mm3 [place] # (Auto) (0.24-0.36) K/mm3 Eos # (Auto) (0.04-0.36) K/mm3 Baso # (Auto) (0.01-0.08) K/mm3 Manual Slide Review Sodium (136-145) mEq/L Potassium (3.5-5.1) mEq/L Chloride (98-107) mEq/L Carbon Dioxide (21-32) mEq/L Anion Gap (5-15) BUN (7-18) mg/dL Creatinine (0.55-1.02) mg/dL Est Cr Clr Drug Dosing mL/min Estimated GFR (MDRD) (>60) mL/min BUN/Creatinine Ratio (14-18) Glucose (83-115) mg/dL POC Glucose 217 H 313 H 117 H (83-110) mg/dL Calcium (8.5-10.1) mg/dL Magnesium (1.8-2.4) mg/dl C-Reactive Protein (<1.0) mg/dL 05/25/17 05/25/17 05/25/17 Range/Units 06:45 06:45 12:13 WBC 10.95 H (3.98-10.04) K/mm3 RBC 3.61 L (3.98-5.22) M/mm3 Hgb 9.4 L (11.2-15.7) gm/L Hct 29.7 L (34.1-44.9) % MCV 82.3 (79.4-94.8) fl MCH 26.0 (25.6-32.2) pg MCHC 31.6 L (32.2-35.5) g/dl RDW Std Deviation 47.6 H (36.4-46.3) fL Plt Count 288 (182-369) K/mm3 MPV 9.4 (9.4-12.3) fl Neut % (Auto) 70.1 (34.0-71.1) % Lymph % (Auto) 18.6 L (19.3-51.7) % [place] % (Auto) 7.9 (4.7-12.5) % Eos % (Auto) 1.9 (0.7-5.8) Baso % (Auto) 0.4 (0.1-1.2) % Neut # (Auto) 7.68 H (1.56-6.13) K/mm3 Lymph # (Auto) 2.04 (1.18-3.74) K/mm3 [place] # (Auto) 0.86 H (0.24-0.36) K/mm3 Eos # (Auto) 0.21 (0.04-0.36) K/mm3 Baso # (Auto) 0.04 (0.01-0.08) K/mm3 Manual Slide Review Abnormal smear Sodium 134 L (136-145) mEq/L Potassium 3.9 (3.5-5.1) mEq/L Chloride 101 (98-107) mEq/L Carbon Dioxide 25 (21-32) mEq/L Anion Gap 11.9 (5-15) BUN 12 (7-18) mg/dL Creatinine 1.0 (0.55-1.02) mg/dL Est Cr Clr Drug Dosing 40.81 mL/min Estimated GFR (MDRD) 55 (>60) mL/min BUN/Creatinine Ratio 12.0 L (14-18) Glucose 131 H (83-115) mg/dL POC Glucose 213 H (83-110) mg/dL Calcium 8.6 (8.5-10.1) mg/dL Magnesium 1.8 (1.8-2.4) mg/dl C-Reactive Protein 17.6 H* (<1.0) mg/dL Sathya Results Last 24 Hours: Microbiology 05/24/17 13:00 Gram Stain - Final Toe, Left - Left Big Anaerobic Culture - Preliminary Med Orders - Current: Current Medications Acetaminophen (Tylenol) 650 mg PO Q4H PRN PRN Reason: Pain (Mild 1-3)/fever Hydrocodone Bitart/Acetaminophen ([place] 325-5 Mg) 1 tab PO Q4H PRN PRN Reason: Pain (moderate 4-6) Last Admin: 05/25/17 10:44 Dose: 1 tab Albuterol/Ipratropium (Duoneb 3.0-0.5 Mg/3 Ml) 3 ml NEB Q4H PRN PRN Reason: Shortness Of Breath/wheezing Amlodipine Besylate (Norvasc) 5 mg PO DAILY [facility] Last Admin: 05/25/17 09:07 Dose: 5 mg Bisacodyl (Dulcolax) 5 mg PO DAILY PRN PRN Reason: Constipation Bisacodyl (Dulcolax) 10 mg RECTAL DAILY PRN PRN Reason: Constipation Last Admin: 05/24/17 06:33 Dose: 10 mg Dextrose/Water (Dextrose 50% In Water) 50 ml IVPUSH ASDIRECTED PRN PRN Reason: Hypoglycemia Docusate Sodium (Colace) 100 mg PO BID PRN PRN Reason: Constipation Enoxaparin Sodium (Lovenox) 40 mg SUBCUT BEDTIME [facility] Last Admin: 05/24/17 21:19 Dose: 40 mg Hydralazine HCl (Apresoline) 20 mg IVPUSH Q4H PRN PRN Reason: Hypertension Hydrochlorothiazide (Hydrochlorothiazide) 25 mg PO DAILY [facility] Last Admin: 05/25/17 09:07 Dose: 25 mg Hydromorphone HCl (Dilaudid) 0.5 mg IVPUSH Q4H PRN PRN Reason: Pain (severe 7-10) Levofloxacin/Dextrose 250 mg/ (Premix) 50 mls @ 50 mls/hr IV Q24H [facility] Last Admin: 05/25/17 02:17 Dose: 50 mls/hr Piperacillin Sod/Tazobactam (Sod 4.5 gm/ Sodium Chloride) 100 mls @ 25 mls/hr IV Q8H [facility] Last Admin: 05/25/17 09:05 Dose: 25 mls/hr Vancomycin HCl 250 mg/Vancomycin HCl 1 gm/ Sodium Chloride 250 mls @ 166 mls/ hr IV Q24H [facility] Last Admin: 05/24/17 15:28 Dose: 166 mls/hr Insulin Aspart (Novolog) 0 unit SUBCUT QIDACANDBED [facility] PRN Reason: Protocol Last Admin: 05/25/17 12:26 Dose: 4 units Insulin Detemir (Levemir) 36 unit SUBCUT BID [facility] Last Admin: 05/25/17 09:09 Dose: 36 units Levothyroxine Sodium (Synthroid) 50 mcg PO ACBREAKFAST [facility] Last Admin: 05/25/17 06:24 Dose: 50 mcg Lorazepam (Ativan) 2 mg IVPUSH Q4H PRN PRN Reason: Seizures Losartan Potassium (Cozaar) 100 mg PO DAILY [facility] Last Admin: 05/25/17 09:08 Dose: 100 mg Magnesium Sulfate (Pharmacy To Dose - Magnesium Replacement) 0 dose .XX ASDIRECTED PRN PRN Reason: RX TO WATCH MAG LEVELS Metoprolol Tartrate (Lopressor) 5 mg IVPUSH Q4H PRN PRN Reason: Tachycardia Miscellaneous Information (Remove Patch) 1 ea TRDERM ONETIME ONE Stop: 05/26/17 16:00 Ondansetron HCl (Zofran) 4 mg IVPUSH Q4H PRN PRN Reason: Nausea/Vomiting Last Admin: 05/24/17 05:44 Dose: 4 mg Polyethylene Glycol (Miralax) 17 gm PO DAILY PRN PRN Reason: Constipation Potassium Chloride (Pharmacy To Dose - Potassium Replacement) 0 dose .XX ASDIRECTED PRN PRN Reason: RX TO WATCH K LEVELS Saccharomyces Boulardii (Florastor) 250 mg PO BID [facility] Last Admin: 05/25/17 09:07 Dose: 250 mg Senna/Docusate Sodium (Senna Plus) 1 tab PO BID PRN PRN Reason: Constipation Simvastatin (Zocor) 20 mg PO BEDTIME [facility] Last Admin: 05/24/17 21:17 Dose: 20 mg Sodium Chloride (Saline Flush) 10 ml FLUSH ASDIRECTED PRN PRN Reason: Keep Vein Open Last Admin: 05/23/17 00:55 Dose: 10 ml Temazepam (Restoril) 15 mg PO BEDTIME PRN PRN Reason: Sleep Vancomycin HCl (Pharmacy To Dose - Vancomycin) 0 dose .XX ASDIRECTED PRN PRN Reason: RX TO DOSE Discontinued Medications Enoxaparin Sodium (Lovenox) 30 mg SUBCUT ONETIME ONE Stop: 05/23/17 14:23 Last Admin: 05/23/17 17:56 Dose: Not Given Fentanyl (Sublimaze) Confirm Administered Dose 100 mcg .ROUTE .STK-MED ONE Stop: 05/24/17 11:36 Sodium Chloride (Normal Saline) 1,000 mls @ 125 mls/hr IV ASDIRECTED [facility] Last Admin: 05/23/17 00:57 Dose: 125 mls/hr Levofloxacin/Dextrose (Levaquin In D5w 750 Mg/150 Ml) Confirm Administered Dose 150 mls @ as directed IV .STK-MED ONE Stop: 05/23/17 02:51 Last Admin: 05/23/17 23:45 Dose: Not Given Potassium Chloride/Sodium Chloride (Normal Saline With 20 Meq Kcl) Confirm Administered Dose 1,000 mls @ as directed .ROUTE .[facility] ONE Stop: 05/23/17 04:38 Last Admin: 05/23/17 23:45 Dose: Not Given Levofloxacin/Dextrose 750 mg/ (Premix) 150 mls @ 100 mls/hr IV ONETIME ONE Stop: 05/23/17 10:25 Last Admin: 05/23/17 02:52 Dose: 100 mls/hr Potassium Chloride/Sodium Chloride (Normal Saline With 20 Meq Kcl) 1,000 mls @ 100 mls/hr IV ONETIME ONE Stop: 05/23/17 14:34 Last Admin: 05/23/17 04:35 Dose: 100 mls/hr Vancomycin HCl 1 gm/ Sodium (Chloride) 250 mls @ 250 mls/hr IV Q24H [facility] Piperacillin Sod/Tazobactam (Sod 4.5 gm/ Sodium Chloride) 100 mls @ 200 mls/hr IV ONETIME ONE Stop: 05/23/17 10:29 Last Admin: 05/23/17 11:12 Dose: 200 mls/hr Magnesium Sulfate 4 gm/ Premix 100 mls @ 50 mls/hr IV ONETIME ONE Stop: 05/23/17 16:29 Last Admin: 05/23/17 15:50 Dose: 50 mls/hr Potassium Chloride 10 meq/ (Premix) 100 mls @ 100 mls/hr IV Q1H [facility] Stop: 05/23/17 20:29 Last Admin: 05/23/17 21:45 Dose: 100 mls/hr Lidocaine HCl (Xylocaine-Mpf 1%) Confirm Administered Dose 4 mls @ as directed .ROUTE .[facility] ONE Stop: 05/24/17 11:35 Lactated Ringer's (Ringers, Lactated) Confirm Administered Dose 1,000 mls @ as directed .ROUTE .[facility] ONE Stop: 05/24/17 11:37 Magnesium Sulfate (Magnesium Sulfate 2 Gm In Water 50 Ml) 50 mls @ 50 mls/hr IV ONETIME ONE Stop: 05/25/17 11:29 Last Admin: 05/25/17 10:43 Dose: 50 mls/hr Ketamine HCl (Ketalar) Confirm Administered Dose 500 mg .ROUTE .STK-MED ONE Stop: 05/24/17 11:36 Ketamine HCl (Ketalar) Confirm Administered Dose 500 mg .ROUTE .STK-MED ONE Stop: 05/24/17 13:01 Lidocaine HCl (Xylocaine-Mpf 1%) Confirm Administered Dose 30 ml .ROUTE .STK- MED ONE Stop: 05/24/17 12:49 Metoclopramide HCl (Reglan) Confirm Administered Dose 10 mg .ROUTE .STK-MED ONE Stop: 05/23/17 02:50 Last Admin: 05/23/17 23:45 Dose: Not Given Metoclopramide HCl (Reglan) 10 mg IVPUSH ONETIME ONE Stop: 05/23/17 08:56 Last Admin: 05/23/17 02:49 Dose: 10 mg Midazolam HCl (Versed 1 Mg/Ml) Confirm Administered Dose 2 mg .ROUTE .STK-MED ONE Stop: 05/24/17 11:36 Ondansetron HCl (Zofran) 4 mg IVPUSH ONETIME ONE Stop: 05/23/17 00:48 Last Admin: 05/23/17 00:57 Dose: 4 mg Potassium Chloride (Klor-Con M20) 40 meq PO Q4H [facility] Stop: 05/23/17 22:31 Last Admin: 05/23/17 17:56 Dose: Not Given Potassium Chloride (Klor-Con M20) 40 meq PO Q4H [facility] Stop: 05/24/17 16:01 Last Admin: 05/24/17 17:33 Dose: Not Given Potassium Chloride (Potassium Chloride Solution) 40 meq PO ONETIME ONE Stop: 05/24/17 18:16 Last Admin: 05/24/17 18:25 Dose: 40 meq Propofol (Diprivan 20 Ml) Confirm Administered Dose 200 mg .ROUTE .STK-MED ONE Stop: 05/24/17 11:36 Propofol (Diprivan 20 Ml) Confirm Administered Dose 200 mg .ROUTE .STK-MED ONE Stop: 05/24/17 13:07 Scopolamine (Transderm-Scop) 1.5 mg TRDERM Q72H ONE Stop: 05/23/17 16:02 Last Admin: 05/23/17 16:22 Dose: 1.5 mg - Exam General: Alert, Oriented, Cooperative, No Acute Distress HEENT: Pupils Equal, Pupils Reactive, EOMI, Mucous Membr. Moist/Roxana, Other ( facial hair) Neck: Supple, Trachea Midline, No JVD Lungs: Clear to Auscultation, Normal Respiratory Effort Cardiovascular: Regular Rate, Regular Rhythm GI/Abdominal Exam: Normal Bowel Sounds, Soft, Non-Tender, No Organomegaly, No Distention, No Abnormal Bruit, No Mass (Female) Exam: Deferred Back Exam: Normal Inspection, Decreased Range of Motion Extremities: Pedal Edema (mild: left foot), Increased Warmth, Redness Peripheral Pulses: 1+: Dorsalis Pedis (L), Dorsalis Pedis (R) Skin: Warm, Dry, Intact Wound/Incisions: Dressing Dry and Intact, No Drainage, Erythema Neurological: No New Focal Deficit. No: Normal Gait Psy/Mental Status: Alert, Normal Affect, Normal Mood - Problem List Review Problem List Initiated/Reviewed/Updated: Yes - My Orders Last 24 Hours: My Active Orders 05/24/17 21:00 Enoxaparin [Lovenox] 40 mg SUBCUT BEDTIME 05/26/17 05:11 BASIC METABOLIC PANEL,BMP [CHEM] AM C-REACTIVE PROTEIN [CHEM] AM CBC WITH AUTO DIFF [HEME] AM MAGNESIUM [CHEM] AM 05/26/17 13:30 VANCOMYCIN TROUGH [CHEM] Timed 05/26/17 15:59 Remove Patch 1 ea TRDERM ONETIME ONE 05/27/17 05:11 BASIC METABOLIC PANEL,BMP [CHEM] AM C-REACTIVE PROTEIN [CHEM] AM CBC WITH AUTO DIFF [HEME] AM MAGNESIUM [CHEM] AM - Plan Plan:: Assessment/Plan: Acute: Diabetic Foot and Toe Ulcer S/p I&D POD#2, Stable - B/L Foot - Risk factors DM and PAD - IV Abx: Vancomycin, Levaquin and Zosyn (due to recent hospitalization in [place]) - GS consult for further eval for possible I&D - Would Cx: Preliminary - Arterial Study completed awaiting final report Leukocytosis, Improving - 2/2 Above - WBC is 17.33 and CRP is 17, now 10.95 and 17.6 respectively - Treat underlying cause - Will monitor Mild Hyponatremia - Na 133 ---> 134 - Likely 2/2 uncontrolled BS - Continue IV fluids - Add salt tablet TID Hyperglycemia with DM2 - BS still not well controlled - Not sure her A1C was; A1C is now is 8.3 - Increased Lantus to 40 mg units SubQ BID - Changed ISS to high dose level - Continue Accu-check QIDandHS UTI - Risk factor: DM - UA pos for UTI - Continue IV ATB - No UA Cx/Sx done Probable PAD - Arterial study with padnet completed - Awaiting final report Resolved: Hypokalemia - K 2.8 - 2/2 inadequate intake and hyperglycemia - Currently receiving supplement - Pharmacy to replete and monitor on next level Chronic: Impaired Vision HTN HLD Constipation Recurrent UTI DM2 Hypothyrodism Chronic Anemia Overweight Plan: She is clinically stable Routine AM Labs Continue PT/OT SW/CM for d/c planning GS following She may need SNF/Rehab Additional orders as above Code status: 1 LOS anticipate > 96 hrs for possible SNF/Rehab placement
[2017-05-25] MEDS: SODIUM CHLORIDE 0.9% IV SCH (14:14)
[2017-05-25] MEDS: VANCOMYCIN IV SCH (14:14)
[2017-05-25] MEDS ORDERED: Potassium Chloride/Sodium Chloride Tab PO PRN (15:00)
[2017-05-25] MEDS: Potassium Chloride/Sodium Chloride Tab PO SCH ×2 (17:52→22:10)
[2017-05-25] MEDS: Mineral Oil/Petrolatum,White Crm 454 GM Jar TOP SCH (20:30)
[2017-05-25] MEDS: Mupirocin Oint 22 GM Tube TOP SCH (20:35)
[2017-05-25] MEDS: Simvastatin 20 MG Tab PO SCH (22:10)
[2017-05-25] MEDS: Enoxaparin 40 MG/0.4 ML Syringe SUBCUT SCH (22:12)
[2017-05-26] MEDS: Levofloxacin/Dextrose 5%-Water 250 MG in Premix Bag 1 BAG IV SCH (01:25)
[2017-05-26] MEDS: Piperacillin/Tazobactam 4.5 GM in Sodium Chloride 0.9% 100 ML IV SCH ×3 (01:28→19:06)
[2017-05-26] MEDS: Levothyroxine 50 MCG Tab PO SCH (06:00)
[2017-05-26] MEDS: Insulin Aspart 100 Units/ML 3 ML Pen SUBCUT SCH ×4 (06:49→21:10)
--- NOTE | 2017-05-26 07:14 | PCM.PN ---
- General Info Date of Service: 05/26/17 Admission Dx/Problem (Free Text): Diabetic Foot and Toe Ulcer Subjective Update: Follow Up Functional Status: Reports: Pain Controlled, Tolerating Diet, Urinating. Denies : New Symptoms - Review of Systems General: Denies: Fever, Weakness, Fatigue, Malaise, Chills HEENT: Reports: No Symptoms Pulmonary: Denies: Shortness of Breath Cardiovascular: Denies: Chest Pain Gastrointestinal: Denies: Abdominal Pain, Nausea, Vomiting Genitourinary: Reports: No Symptoms Musculoskeletal: Reports: Leg Pain Skin: Denies: Cyanosis, Jaundice, Mottled, Pallor, Pruritis Neurological: Reports: Pre-Existing Deficit, Difficulty Walking, Gait Disturbance. Denies: Confusion, Weakness Psychiatric: Denies: Depression, Anxiety, Agitation, Cravings, Hallucinations Systems Review Comment:: She had an uneventful night. She slept pretty good. She has no new complaints. Her WBC is essentially unchanged. Her Na is now 134. Her CRP is down from 17.6 to 11.5. - Patient Data Vitals - Most Recent: Last Vital Signs Temp 37.0 C 05/26/17 06:23 Pulse 73 05/26/17 06:23 Resp 12 05/26/17 06:23 BP 135/52 L 05/26/17 06:23 Pulse Ox 95 05/26/17 06:23 Weight - Most Recent: 82.917 kg I&O - Last 24 Hours: Intake & Output 05/25/17 05/26/17 05/26/17 22:59 06:59 14:59 Intake Total 1150 850 Output Total 400 1900 Balance 750 -1050 Lab Results Last 24 Hours: Laboratory Results - last 24 hr 05/25/17 05/25/17 05/25/17 Range/Units 06:45 06:45 12:13 WBC 10.95 H (3.98-10.04) K/mm3 RBC 3.61 L (3.98-5.22) M/mm3 Hgb 9.4 L (11.2-15.7) gm/L Hct 29.7 L (34.1-44.9) % MCV 82.3 (79.4-94.8) fl MCH 26.0 (25.6-32.2) pg MCHC 31.6 L (32.2-35.5) g/dl RDW Std Deviation 47.6 H (36.4-46.3) fL Plt Count 288 (182-369) K/mm3 MPV 9.4 (9.4-12.3) fl Neut % (Auto) 70.1 (34.0-71.1) % Lymph % (Auto) 18.6 L (19.3-51.7) % [place] % (Auto) 7.9 (4.7-12.5) % Eos % (Auto) 1.9 (0.7-5.8) Baso % (Auto) 0.4 (0.1-1.2) % Neut # (Auto) 7.68 H (1.56-6.13) K/mm3 Lymph # (Auto) 2.04 (1.18-3.74) K/mm3 Spencer # (Auto) 0.86 H (0.24-0.36) K/mm3 Eos # (Auto) 0.21 (0.04-0.36) K/mm3 Baso # (Auto) 0.04 (0.01-0.08) K/mm3 Manual Slide Review Abnormal smear Sodium 134 L (136-145) mEq/L Potassium 3.9 (3.5-5.1) mEq/L Chloride 101 (98-107) mEq/L Carbon Dioxide 25 (21-32) mEq/L Anion Gap 11.9 (5-15) BUN 12 (7-18) mg/dL Creatinine 1.0 (0.55-1.02) mg/dL Est Cr Clr Drug Dosing 40.81 mL/min Estimated GFR (MDRD) 55 (>60) mL/min BUN/Creatinine Ratio 12.0 L (14-18) Glucose 131 H (83-115) mg/dL POC Glucose 213 H (83-110) mg/dL Calcium 8.6 (8.5-10.1) mg/dL Magnesium 1.8 (1.8-2.4) mg/dl C-Reactive Protein 17.6 H* (<1.0) mg/dL 05/25/17 05/25/17 05/26/17 Range/Units 17:10 22:05 05:52 WBC 10.55 H (3.98-10.04) K/mm3 RBC 3.89 L (3.98-5.22) M/mm3 Hgb 10.2 L (11.2-15.7) gm/L Hct 31.9 L (34.1-44.9) % MCV 82.0 (79.4-94.8) fl MCH 26.2 (25.6-32.2) pg MCHC 32.0 L (32.2-35.5) g/dl RDW Std Deviation 46.9 H (36.4-46.3) fL Plt Count 317 (182-369) K/mm3 MPV 8.9 L (9.4-12.3) fl Neut % (Auto) 68.7 (34.0-71.1) % Lymph % (Auto) 18.2 L (19.3-51.7) % Spencer % (Auto) 8.6 (4.7-12.5) % Eos % (Auto) 1.9 (0.7-5.8) Baso % (Auto) 0.5 (0.1-1.2) % Neut # (Auto) 7.25 H (1.56-6.13) K/mm3 Lymph # (Auto) 1.92 (1.18-3.74) K/mm3 Spencer # (Auto) 0.91 H (0.24-0.36) K/mm3 Eos # (Auto) 0.20 (0.04-0.36) K/mm3 Baso # (Auto) 0.05 (0.01-0.08) K/mm3 Manual Slide Review Abnormal smear Sodium (136-145) mEq/L Potassium (3.5-5.1) mEq/L Chloride (98-107) mEq/L Carbon Dioxide (21-32) mEq/L Anion Gap (5-15) BUN (7-18) mg/dL Creatinine (0.55-1.02) mg/dL Est Cr Clr Drug Dosing mL/min Estimated GFR (MDRD) (>60) mL/min BUN/Creatinine Ratio (14-18) Glucose (83-115) mg/dL POC Glucose 158 H 187 H (83-110) mg/dL Calcium (8.5-10.1) mg/dL Magnesium (1.8-2.4) mg/dl C-Reactive Protein (<1.0) mg/dL 05/26/17 05/26/17 Range/Units 05:52 06:06 WBC (3.98-10.04) K/mm3 RBC (3.98-5.22) M/mm3 Hgb (11.2-15.7) gm/L Hct (34.1-44.9) % MCV (79.4-94.8) fl MCH (25.6-32.2) pg MCHC (32.2-35.5) g/dl RDW Std Deviation (36.4-46.3) fL Plt Count (182-369) K/mm3 MPV (9.4-12.3) fl Neut % (Auto) (34.0-71.1) % Lymph % (Auto) (19.3-51.7) % Spencer % (Auto) (4.7-12.5) % Eos % (Auto) (0.7-5.8) Baso % (Auto) (0.1-1.2) % Neut # (Auto) (1.56-6.13) K/mm3 Lymph # (Auto) (1.18-3.74) K/mm3 Spencer # (Auto) (0.24-0.36) K/mm3 Eos # (Auto) (0.04-0.36) K/mm3 Baso # (Auto) (0.01-0.08) K/mm3 Manual Slide Review Sodium 134 L (136-145) mEq/L Potassium 3.5 (3.5-5.1) mEq/L Chloride 100 (98-107) mEq/L Carbon Dioxide 28 (21-32) mEq/L Anion Gap 9.5 (5-15) BUN 9 (7-18) mg/dL Creatinine 0.9 (0.55-1.02) mg/dL Est Cr Clr Drug Dosing 45.34 mL/min Estimated GFR (MDRD) > 60 (>60) mL/min BUN/Creatinine Ratio 10.0 L (14-18) Glucose 85 (83-115) mg/dL POC Glucose 73 L (83-110) mg/dL Calcium 8.6 (8.5-10.1) mg/dL Magnesium 1.8 (1.8-2.4) mg/dl C-Reactive Protein 11.5 H* (<1.0) mg/dL Sathya Results Last 24 Hours: Microbiology 05/24/17 13:00 Gram Stain - Final Toe, Left - Left Big Anaerobic Culture - Preliminary Med Orders - Current: Current Medications Acetaminophen (Tylenol) 650 mg PO Q4H PRN PRN Reason: Pain (Mild 1-3)/fever Hydrocodone Bitart/Acetaminophen ([place] 325-5 Mg) 1 tab PO Q4H PRN PRN Reason: Pain (moderate 4-6) Last Admin: 05/25/17 10:44 Dose: 1 tab Albuterol/Ipratropium (Duoneb 3.0-0.5 Mg/3 Ml) 3 ml NEB Q4H PRN PRN Reason: Shortness Of Breath/wheezing Amlodipine Besylate (Norvasc) 5 mg PO DAILY [facility] Last Admin: 05/25/17 09:07 Dose: 5 mg Bisacodyl (Dulcolax) 5 mg PO DAILY PRN PRN Reason: Constipation Bisacodyl (Dulcolax) 10 mg RECTAL DAILY PRN PRN Reason: Constipation Last Admin: 05/24/17 06:33 Dose: 10 mg Dextrose/Water (Dextrose 50% In Water) 50 ml IVPUSH ASDIRECTED PRN PRN Reason: Hypoglycemia Docusate Sodium (Colace) 100 mg PO BID PRN PRN Reason: Constipation Enoxaparin Sodium (Lovenox) 40 mg SUBCUT BEDTIME [facility] Last Admin: 05/25/17 22:12 Dose: 40 mg Hydralazine HCl (Apresoline) 20 mg IVPUSH Q4H PRN PRN Reason: Hypertension Hydrochlorothiazide (Hydrochlorothiazide) 25 mg PO DAILY [facility] Last Admin: 05/25/17 09:07 Dose: 25 mg Hydromorphone HCl (Dilaudid) 0.5 mg IVPUSH Q4H PRN PRN Reason: Pain (severe 7-10) Levofloxacin/Dextrose 250 mg/ (Premix) 50 mls @ 50 mls/hr IV Q24H [facility] Last Admin: 05/26/17 01:25 Dose: 50 mls/hr Piperacillin Sod/Tazobactam (Sod 4.5 gm/ Sodium Chloride) 100 mls @ 25 mls/hr IV Q8H [facility] Last Admin: 05/26/17 01:28 Dose: 25 mls/hr Vancomycin HCl 250 mg/Vancomycin HCl 1 gm/ Sodium Chloride 250 mls @ 166 mls/ hr IV Q24H [facility] Last Admin: 05/25/17 14:14 Dose: 166 mls/hr Insulin Aspart (Novolog) 0 unit SUBCUT QIDACANDBED [facility] PRN Reason: Protocol Last Admin: 05/26/17 06:49 Dose: Not Given Insulin Detemir (Levemir) 40 unit SUBCUT BID [facility] Last Admin: 05/25/17 22:11 Dose: 40 units Levothyroxine Sodium (Synthroid) 50 mcg PO ACBREAKFAST [facility] Last Admin: 05/26/17 06:00 Dose: 50 mcg Lorazepam (Ativan) 2 mg IVPUSH Q4H PRN PRN Reason: Seizures Losartan Potassium (Cozaar) 100 mg PO DAILY [facility] Last Admin: 05/25/17 09:08 Dose: 100 mg Magnesium Sulfate (Pharmacy To Dose - Magnesium Replacement) 0 dose .XX ASDIRECTED PRN PRN Reason: RX TO WATCH MAG LEVELS Metoprolol Tartrate (Lopressor) 5 mg IVPUSH Q4H PRN PRN Reason: Tachycardia Mineral Oil/White Petrolatum (Minerin Creme) 0 gm TOP DAILY [facility] Last Admin: 05/25/17 20:30 Dose: Not Given Miscellaneous Information (Remove Patch) 1 ea TRDERM ONETIME ONE Stop: 05/26/17 16:00 Mupirocin (Bactroban Oint) 0 gm TOP DAILY [facility] Last Admin: 05/25/17 20:35 Dose: 1 applic Ondansetron HCl (Zofran) 4 mg IVPUSH Q4H PRN PRN Reason: Nausea/Vomiting Last Admin: 05/24/17 05:44 Dose: 4 mg Oral Electrolytes (Thermotabs) 1 each PO TID [facility] Last Admin: 05/25/17 22:10 Dose: 1 each Polyethylene Glycol (Miralax) 17 gm PO DAILY PRN PRN Reason: Constipation Potassium Chloride (Pharmacy To Dose - Potassium Replacement) 0 dose .XX ASDIRECTED PRN PRN Reason: RX TO WATCH K LEVELS Saccharomyces Boulardii (Florastor) 250 mg PO BID [facility] Last Admin: 05/25/17 22:09 Dose: 250 mg Senna/Docusate Sodium (Senna Plus) 1 tab PO BID PRN PRN Reason: Constipation Simvastatin (Zocor) 20 mg PO BEDTIME [facility] Last Admin: 05/25/17 22:10 Dose: 20 mg Sodium Chloride (Saline Flush) 10 ml FLUSH ASDIRECTED PRN PRN Reason: Keep Vein Open Last Admin: 05/23/17 00:55 Dose: 10 ml Temazepam (Restoril) 15 mg PO BEDTIME PRN PRN Reason: Sleep Vancomycin HCl (Pharmacy To Dose - Vancomycin) 0 dose .XX ASDIRECTED PRN PRN Reason: RX TO DOSE Discontinued Medications Enoxaparin Sodium (Lovenox) 30 mg SUBCUT ONETIME ONE Stop: 05/23/17 14:23 Last Admin: 05/23/17 17:56 Dose: Not Given Fentanyl (Sublimaze) Confirm Administered Dose 100 mcg .ROUTE .STK-MED ONE Stop: 05/24/17 11:36 Sodium Chloride (Normal Saline) 1,000 mls @ 125 mls/hr IV ASDIRECTED [facility] Last Admin: 05/23/17 00:57 Dose: 125 mls/hr Levofloxacin/Dextrose (Levaquin In D5w 750 Mg/150 Ml) Confirm Administered Dose 150 mls @ as directed IV .STK-MED ONE Stop: 05/23/17 02:51 Last Admin: 05/23/17 23:45 Dose: Not Given Potassium Chloride/Sodium Chloride (Normal Saline With 20 Meq Kcl) Confirm Administered Dose 1,000 mls @ as directed .ROUTE .STK-MED ONE Stop: 05/23/17 04:38 Last Admin: 05/23/17 23:45 Dose: Not Given Levofloxacin/Dextrose 750 mg/ (Premix) 150 mls @ 100 mls/hr IV ONETIME ONE Stop: 05/23/17 10:25 Last Admin: 05/23/17 02:52 Dose: 100 mls/hr Potassium Chloride/Sodium Chloride (Normal Saline With 20 Meq Kcl) 1,000 mls @ 100 mls/hr IV ONETIME ONE Stop: 05/23/17 14:34 Last Admin: 05/23/17 04:35 Dose: 100 mls/hr Vancomycin HCl 1 gm/ Sodium (Chloride) 250 mls @ 250 mls/hr IV Q24H [facility] Piperacillin Sod/Tazobactam (Sod 4.5 gm/ Sodium Chloride) 100 mls @ 200 mls/hr IV ONETIME ONE Stop: 05/23/17 10:29 Last Admin: 05/23/17 11:12 Dose: 200 mls/hr Magnesium Sulfate 4 gm/ Premix 100 mls @ 50 mls/hr IV ONETIME ONE Stop: 05/23/17 16:29 Last Admin: 05/23/17 15:50 Dose: 50 mls/hr Potassium Chloride 10 meq/ (Premix) 100 mls @ 100 mls/hr IV Q1H [facility] Stop: 05/23/17 20:29 Last Admin: 05/23/17 21:45 Dose: 100 mls/hr Lidocaine HCl (Xylocaine-Mpf 1%) Confirm Administered Dose 4 mls @ as directed .ROUTE .STK-MED ONE Stop: 05/24/17 11:35 Lactated Ringer's (Ringers, Lactated) Confirm Administered Dose 1,000 mls @ as directed .ROUTE .STK-MED ONE Stop: 05/24/17 11:37 Magnesium Sulfate (Magnesium Sulfate 2 Gm In Water 50 Ml) 50 mls @ 50 mls/hr IV ONETIME ONE Stop: 05/25/17 11:29 Last Admin: 05/25/17 10:43 Dose: 50 mls/hr Insulin Detemir (Levemir) 36 unit SUBCUT BID [facility] Last Admin: 05/25/17 09:09 Dose: 36 units Ketamine HCl (Ketalar) Confirm Administered Dose 500 mg .ROUTE .STK-MED ONE Stop: 05/24/17 11:36 Ketamine HCl (Ketalar) Confirm Administered Dose 500 mg .ROUTE .STK-MED ONE Stop: 05/24/17 13:01 Lidocaine HCl (Xylocaine-Mpf 1%) Confirm Administered Dose 30 ml .ROUTE .STK- MED ONE Stop: 05/24/17 12:49 Metoclopramide HCl (Reglan) Confirm Administered Dose 10 mg .ROUTE .STK-MED ONE Stop: 05/23/17 02:50 Last Admin: 05/23/17 23:45 Dose: Not Given Metoclopramide HCl (Reglan) 10 mg IVPUSH ONETIME ONE Stop: 05/23/17 08:56 Last Admin: 05/23/17 02:49 Dose: 10 mg Midazolam HCl (Versed 1 Mg/Ml) Confirm Administered Dose 2 mg .ROUTE .STK-MED ONE Stop: 05/24/17 11:36 Ondansetron HCl (Zofran) 4 mg IVPUSH ONETIME ONE Stop: 05/23/17 00:48 Last Admin: 05/23/17 00:57 Dose: 4 mg Oral Electrolytes (Thermotabs) 1 each PO ASDIRECTED PRN PRN Reason: Other Potassium Chloride (Klor-Con M20) 40 meq PO Q4H [facility] Stop: 05/23/17 22:31 Last Admin: 05/23/17 17:56 Dose: Not Given Potassium Chloride (Klor-Con M20) 40 meq PO Q4H [facility] Stop: 05/24/17 16:01 Last Admin: 05/24/17 17:33 Dose: Not Given Potassium Chloride (Potassium Chloride Solution) 40 meq PO ONETIME ONE Stop: 05/24/17 18:16 Last Admin: 05/24/17 18:25 Dose: 40 meq Propofol (Diprivan 20 Ml) Confirm Administered Dose 200 mg .ROUTE .STK-MED ONE Stop: 05/24/17 11:36 Propofol (Diprivan 20 Ml) Confirm Administered Dose 200 mg .ROUTE .STK-MED ONE Stop: 05/24/17 13:07 Scopolamine (Transderm-Scop) 1.5 mg TRDERM Q72H ONE Stop: 05/23/17 16:02 Last Admin: 05/23/17 16:22 Dose: 1.5 mg - Exam General: Alert, Oriented, Cooperative, No Acute Distress HEENT: Pupils Equal, Pupils Reactive, EOMI, Mucous Membr. Moist/[place], Other ( with facial hairs) Neck: Supple, Trachea Midline, No JVD, No Thyromegaly Lungs: Clear to Auscultation, Normal Respiratory Effort Cardiovascular: Regular Rate, Regular Rhythm GI/Abdominal Exam: Normal Bowel Sounds, Soft, Non-Tender, No Organomegaly, No Distention, No Abnormal Bruit, No Mass (Female) Exam: Deferred Back Exam: Normal Inspection, Decreased Range of Motion Extremities: No Pedal Edema (right foot), Pedal Edema (left foot), Leg Pain ( left foot on manual palpation), Limited Range of Motion, Redness (both foot), Other (distal peripheral pulses are reduced). No: Normal Capillary Refill ( reduced) Skin: Warm, Dry, Intact Wound/Incisions: Dressing Dry and Intact, No Drainage, Erythema Improving Neurological: No New Focal Deficit Psy/Mental Status: Alert, Normal Affect, Normal Mood - Problem List Review Problem List Initiated/Reviewed/Updated: Yes - My Orders Last 24 Hours: My Active Orders 05/25/17 17:00 Potassium Chloride/NaCl [Thermotabs] 1 each PO TID 05/25/17 21:00 Insulin Detemir [Levemir] 40 unit SUBCUT BID 05/26/17 13:30 VANCOMYCIN TROUGH [CHEM] Routine 05/26/17 15:59 Remove Patch 1 ea TRDERM ONETIME ONE 05/27/17 05:11 BASIC METABOLIC PANEL,BMP [CHEM] AM C-REACTIVE PROTEIN [CHEM] AM CBC WITH AUTO DIFF [HEME] AM MAGNESIUM [CHEM] AM - Plan Plan:: Assessment/Plan: Acute: Diabetic Foot and Toe Ulcer S/p I&D POD#2, Stable - B/L Foot - Risk factors DM and PAD - IV Abx: Vancomycin, Levaquin and Zosyn (due to recent hospitalization in [place]) - GS consult for further eval for possible I&D - Would Cx: Enterococcus and Beta Strep Group G, no sensitiviy yet - De-escalate her ATB in AM - Arterial Study completed awaiting final report Leukocytosis, Continue to improve - 2/2 Above - WBC is 17.33 and CRP is 17, now 10.55 and 11.5 respectively - Treat underlying cause - Continue to monitor Mild Hyponatremia - Na still at 134 - Likely 2/2 uncontrolled BS - Continue IV fluids and salt tablet TID Hyperglycemia with DM2 - BS is much more controlled, now < 200s - Not sure her A1C was; A1C is now is 8.3 - Continue Levemir/Lantus 40 mg units SubQ BID and High dose ISS - Continue Accu-check QIDandHS UTI - Risk factor: DM - UA pos for UTI - Continue IV ATB - No UA Cx/Sx done Probable PAD - Arterial study with padnet completed - Awaiting final report Resolved: Hypokalemia - K 2.8 - 2/2 inadequate intake and hyperglycemia - Currently receiving supplement - Pharmacy to replete and monitor on next level Chronic: Impaired Vision HTN HLD Constipation Recurrent UTI DM2 Hypothyrodism Chronic Anemia Overweight Plan: She remains clinically stable Routine AM Labs Continue PT/OT SW/CM for d/c planning GS following She may need SNF/Rehab Additional orders as above Code status: 1 LOS anticipate > 96 hrs for possible SNF/Rehab placement
[2017-05-26] MEDS: amLODIPine 5 MG Tab PO SCH (08:26)
[2017-05-26] MEDS: Hydrochlorothiazide 25 MG Tab PO SCH (08:26)
[2017-05-26] MEDS: Potassium Chloride/Sodium Chloride Tab PO SCH ×4 (08:26→21:22)
[2017-05-26] MEDS: Saccharomyces Boulardii (Probiotic) 250 MG Cap PO SCH ×2 (08:26→21:07)
[2017-05-26] MEDS: Losartan 100 MG Tab PO SCH (08:31)
[2017-05-26] MEDS: Insulin Detemir 100 Units/ML 3 ML Pen SUBCUT SCH ×2 (09:37→21:08)
[2017-05-26] MEDS ORDERED: Magnesium Sulfate/Water 50 ML IV ONE (11:00)
[2017-05-26] MEDS: Potassium Chloride 20 MEQ Tab.ER PO SCH ×2 (11:29→15:11)
[2017-05-26] MEDS: Mupirocin Oint 22 GM Tube TOP SCH (11:30)
[2017-05-26] MEDS: Mineral Oil/Petrolatum,White Crm 454 GM Jar TOP SCH (13:44)
[2017-05-26] MEDS: SODIUM CHLORIDE 0.9% IV SCH (15:10)
[2017-05-26] MEDS: VANCOMYCIN IV SCH (15:10)
[2017-05-26] MEDS: Enoxaparin 40 MG/0.4 ML Syringe SUBCUT SCH (21:07)
[2017-05-26] MEDS: Simvastatin 20 MG Tab PO SCH (21:10)
[2017-05-27] MEDS: Levofloxacin/Dextrose 5%-Water 250 MG in Premix Bag 1 BAG IV SCH (00:59)
[2017-05-27] MEDS: Piperacillin/Tazobactam 4.5 GM in Sodium Chloride 0.9% 100 ML IV SCH ×3 (02:39→17:33)
[2017-05-27] MEDS: Levothyroxine 50 MCG Tab PO SCH (05:33)
[2017-05-27] MEDS: Insulin Aspart 100 Units/ML 3 ML Pen SUBCUT SCH ×4 (06:41→22:00)
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
[2017-05-27] MEDS: Saccharomyces Boulardii (Probiotic) 250 MG Cap PO SCH ×2 (08:00→20:22)
[2017-05-27] MEDS: amLODIPine 5 MG Tab PO SCH (08:01)
[2017-05-27] MEDS: Losartan 100 MG Tab PO SCH (08:02)
[2017-05-27] MEDS: Insulin Detemir 100 Units/ML 3 ML Pen SUBCUT SCH ×2 (08:02→20:22)
[2017-05-27] MEDS: Hydrochlorothiazide 25 MG Tab PO SCH (08:02)
[2017-05-27] MEDS: Potassium Chloride/Sodium Chloride Tab PO SCH (08:04)
[2017-05-27] MEDS ORDERED: Magnesium Oxide 400 MG Tab PO SCH (11:00)
[2017-05-27] MEDS: VANCOMYCIN IV SCH (11:43)
[2017-05-27] MEDS: SODIUM CHLORIDE 0.9% IV SCH (11:43)
[2017-05-27] MEDS: Mupirocin Oint 22 GM Tube TOP SCH (11:45)
[2017-05-27] MEDS: Mineral Oil/White Petrolatum Crm 113 GM Jar TOP SCH (11:47)
--- NOTE | 2017-05-27 12:00 | OR ---
DATE OF OPERATION: 05/24/2017 SURGEON: Nicholas Powell MD OPERATION PERFORMED: Debridement of foot ulcer on the right foot with debridement of callus and into the dermis and subcuticular tissue measuring approximately 1.5 cm crossed, and debridement of an ulcer on the left extensor surfaces of the left big toe with removal of callus and into the soft tissue of the toe measuring approximately 3 cm crossed. There was no involvement of tendon and bone in the left flexor surface of the big toe. ANESTHESIA: Procedure done under IV sedation. DESCRIPTION OF PROCEDURE: The patient was taken to the operating room, placed in the supine position, connected to monitoring equipment, given IV sedation. Both feet were prepped with Betadine, draped off in a sterile fashion. The ulcer on the right foot showed a collapsed foot and a callus that had developed up around the ulcer was noted. The ulcer extended through the skin into the surrounding soft tissue underneath the skin. The callus was shaved down and the ulcer was debrided extending into the subcuticular tissue, just below the ulcer. This was then packed open. Attention was then directed to the left extensor surface of the left big toe where the ulcer was noted. It was probed and found to undermine into callus. This knife was taken and this callus was removed. The sinus tract stopped there and did not go into the tendons of the bone or any of the soft tissue. This area was cultured and then left open and this measured about a 3 cm crossed area. The bleeding points on the skin were controlled with electrocautery, some Surgicel, and Xeroform gauze and wrapped up. The patient tolerated the procedure and sent to recovery room in a stable condition. PREOPERATIVE DIAGNOSIS: Diabetic foot and toe ulcer. POSTOPERATIVE DIAGNOSIS: Diabetic foot and toe ulcer. ESTIMATED BLOOD LOSS: 10 mL MMODAL /[id number]
[2017-05-27] MEDS ORDERED: Aluminum Hydroxide/Magnesium Hydroxide/Simethicone Susp 30 ML Cup PO PRN (19:36)
[2017-05-27] MEDS: Enoxaparin 40 MG/0.4 ML Syringe SUBCUT SCH (20:22)
[2017-05-27] MEDS: Simvastatin 20 MG Tab PO SCH (20:22)
[2017-05-28] MEDS: Piperacillin/Tazobactam 4.5 GM in Sodium Chloride 0.9% 100 ML IV SCH (01:46)
[2017-05-28] MEDS: SODIUM CHLORIDE 0.9% IV SCH (04:59)
[2017-05-28] MEDS: VANCOMYCIN IV SCH (04:59)
[2017-05-28] MEDS: Levothyroxine 50 MCG Tab PO SCH (05:01)
[2017-05-28] MEDS: Insulin Aspart 100 Units/ML 3 ML Pen SUBCUT SCH ×4 (06:24→21:22)
[2017-05-28] MEDS: Levofloxacin 750 MG Tab PO SCH (09:05)
[2017-05-28] MEDS: Losartan 100 MG Tab PO SCH (09:06)
[2017-05-28] MEDS: Hydrochlorothiazide 25 MG Tab PO SCH (09:07)
[2017-05-28] MEDS: Saccharomyces Boulardii (Probiotic) 250 MG Cap PO SCH ×2 (09:07→21:23)
[2017-05-28] MEDS: Insulin Detemir 100 Units/ML 3 ML Pen SUBCUT SCH ×2 (09:08→21:20)
[2017-05-28] MEDS: Mineral Oil/White Petrolatum Crm 113 GM Jar TOP SCH (09:10)
[2017-05-28] MEDS: amLODIPine 5 MG Tab PO SCH (09:10)
[2017-05-28] MEDS: Mupirocin Oint 22 GM Tube TOP SCH (09:11)
--- NOTE | 2017-05-28 12:23 | PCM.DCSUM1 ---
Discharge Summary - Hospital Course Free Text/Narrative:: This is a 72 year old white female with past medical history of cataract, hypertension, hyperlipidemia, chronic constipation, recurrent UTI, hypothyroidism, chronic anemia, and type 2 diabetes, who presents to the emergency department with complaints of generalized abdominal pain with nausea and vomiting that started this morning. She denies any diarrhea or constipation. Patient denies any recent travel. No unusual diet or drinking, she has not gone out camping or hiking. Patient reports associated symptoms of fever and chills. She also admits to having productive cough. She denies any chest pain or shortness of breath. Patient was recently admitted admitted a few weeks ago in [facility] for treatment of pneumonia and UTI. Currently, she has an infected great toe on her left foot and at the sole of her right foot. He is being following Dr. Millan in [place] for foot care. Her initial workup in the emergency department shows a CBC remarkable for WBC of 17.33, neutrophils of 88.1%, lymphocytes of 6.5%, monocytes of 4.6% and eosinophils of 0.1%. Her chemistry is significant for sodium of 133, potassium of 2.8, chloride of 97, anion gap of 15.8, creatinine of 1.3, glucose of 262, lactic acid of 2.5, total protein of 9.7 and lipase of 50. Her UA suggestive of urinary tract infection. Her chest x-ray report reads no acute abnormalities seen. Patient is being admitted for medical management and possible surgical management of diabetes followed and toe ulcer. She is full code. Patient was admitted to MST unit, started on IV abx of vancomycin, zosyn and levaquin. Dr. Powell, General Surgeon was consulted who took patient to surgery for debriedment of wounds to left and right feet. Dressings were changed daily thereafter. She worked with therapies while awaiting culture results and sensitivities. Results returned as enterococcus and group G strep, both sensitive to levaquin. Other antibiotics were DC'd and she continued on Levaquin , transitioned to oral and continued to do well. Blood sugars were running high , high 200's, levemir insulin was adjusted with some improvements, she was maintained on sliding scale coverage as well. A1C is 8.3. 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 She had evaluation for PVD with findings of mild PAD on JOSE studies. Vascular surgery consult has been set up for patient on an outpatient basis. She is to see her PCP, Connie Castellon within one week of discharge as well. - Discharge Data Discharge Date: 05/28/17 (admit date 05/23/17) Discharge Disposition: DC/Tfer to SNF 03 Condition: Good - Discharge Diagnosis/Problem(s) (1) Cellulitis SNOMED Code(s): 253390436 ICD Code: L03.90 - CELLULITIS, UNSPECIFIED Status: Resolved Priority: High Current Visit: Yes Qualifiers: Site of cellulitis: extremity Site of cellulitis of extremity: lower extremity Laterality: right Qualified Code(s): L03.115 - Cellulitis of right lower limb (2) Foot ulcer SNOMED Code(s): 58233698, 12895491 ICD Code: L97.509 - NON-PRESSURE CHRONIC ULCER OTH PRT UNSP FOOT W UNSP SEVERITY Status: Acute Priority: High Current Visit: Yes Qualifiers: Laterality: right Non-pressure ulcer stage: unspecified non-pressure ulcer stage Qualified Code(s): L97.519 - Non-pressure chronic ulcer of other part of right foot with unspecified severity (3) Diabetes mellitus SNOMED Code(s): 19970461 ICD Code: E11.9 - TYPE 2 DIABETES MELLITUS WITHOUT COMPLICATIONS Status: Chronic Priority: High Current Visit: Yes Qualifiers: Diabetes mellitus type: type 2 Diabetes mellitus complication status: with skin complications Diabetes mellitus complication detail: with foot ulcer Diabetes mellitus mcc insulin use: with vermin exterminator use Qualified Code(s) : E11.621 - Type 2 diabetes mellitus with foot ulcer; L97.509 - Non-pressure chronic ulcer of other part of unspecified foot with unspecified severity; 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 (4) Peripheral vascular disease SNOMED Code(s): 366255747 ICD Code: I73.9 - PERIPHERAL VASCULAR DISEASE, UNSPECIFIED Status: Chronic Priority: High Current Visit: Yes (5) Hypokalemia SNOMED Code(s): 87527604 ICD Code: E87.6 - HYPOKALEMIA Status: Resolved Priority: High Current Visit: Yes (6) Nausea & vomiting SNOMED Code(s): 69289662 ICD Code: R11.2 - NAUSEA WITH VOMITING, UNSPECIFIED Status: Resolved Priority: High Current Visit: Yes Qualifiers: Vomiting type: unspecified Vomiting Intractability: non-intractable Qualified Code(s): R11.2 - Nausea with vomiting, unspecified (7) UTI (urinary tract infection) SNOMED Code(s): 63281400 ICD Code: N39.0 - URINARY TRACT INFECTION, SITE NOT SPECIFIED Status: Acute Priority: High Current Visit: Yes Qualifiers: Urinary tract infection type: site unspecified Hematuria presence: without hematuria Qualified Code(s): N39.0 - Urinary tract infection, site not specified - Patient Summary/Data Operative Procedure(s) Performed: debride ulcer rt foot and left big toe--with Dr. Powell Complications: None Consults: Consultations 05/23/17 13:00 Consult to Case Management [CONS] Routine Consult to Diabetic Nurse Specialist [CONS] Routine Consult to Manufacturing Group Leader [CONS] Routine Consult to Physician [CONS] Routine Consult to Industrial Relations Representative [CONS] Routine Consult to Spiritual Care [CONS] Routine OT Evaluation and Treatment [CONS] Routine PT Evaluation and Treatment [CONS] Routine 05/23/17 16:00 Consult to Speech Language Pathology [MEDICAL EQUIPMENT REPAIRER Evaluation and Treatment] [CONS] Routine Labs Pending at D/C: None Recommended Follow-up Testing/Procedures: F/up with vascular surgeon as scheduled Physical, occupational and speech to evaluate and treat -PT to eval and treat for wound care to feet bilaterally. Non weight bearing status on left foot, ambulate with walker; or ambulate on heel if unable to follow/maintain weight bearing status. dressing change: Clean both feet in warm soapy water and then message both feet with eucrin cream and place cotton between toes and dress the ulcer on the right foot with bactroban and the left foot ulcer dress with bactroban and dress with adaptic and four by fours and kerlex keep both feet elevated on two pillows, Elevate frequency 4 times a day Follow up with PCP, Connie Corcoran within one week of discharge. Planned Operative Procedure(s) after DC: None Hospital Course: As above - Patient Instructions Diet: Heart Healthy Diet, Diabetic Diet Activity: Elevate Extremity (bilateral at all times when sitting), Partial Weight Bearing (walk on heel or nonwt bearing to left foot at all times with walker for assist; cont with PT/OT at SNF. ) Driving: Do Not Drive Showering/Bathing: May Shower Wound/Incision Care: Keep Operative Site/Wound Site Clean and Dry, Change Dressing Daily (PT for wound care to continue at SNF) Notify Provider of: Fever, Increased Pain, Swelling and Redness, Drainage, Nausea and/or Vomiting - Discharge Plan Prescriptions/Med Rec: Acetaminophen [Tylenol] 650 mg PO Q4H PRN #60 tablet PRN Reason: Pain Acetaminophen/HYDROcodone [[place] 325-5 MG] 1 tab PO Q4H PRN #40 tablet PRN Reason: Pain Docusate Sodium/Sennosides [Senna Plus] 1 tab PO BID PRN #60 tablet PRN Reason: Constipation Insulin Aspart [NovoLOG] See Protocol SUBCUT QIDACANDBED #2 pen Insulin Detemir [Levemir] 42 unit SUBCUT BID #2 pen Levofloxacin [Levaquin] 750 mg PO Q24H #7 tablet Home Medications: Home Meds Hydrochlorothiazide 25 mg PO DAILY 02/03/17 [History] Levothyroxine [Synthroid] 50 mcg PO DAILY 02/03/17 [History] Losartan Potassium [Cozaar] 100 mg PO DAILY 02/03/17 [History] Simvastatin [Zocor] 20 mg PO BEDTIME 02/03/17 [History] amLODIPine [Norvasc] 5 mg PO DAILY 02/03/17 [History] Acetaminophen [Tylenol] 650 mg PO Q4H PRN #60 tablet 05/28/17 [Rx] Acetaminophen/HYDROcodone [[place] 325-5 MG] 1 tab PO Q4H PRN #40 tablet 05/28/17 [Rx] Alum Hydrox/Mag Hydrox/Simeth [Mag-Al Plus] 30 ml PO Q4H PRN #0 cup 05/28/17 [Rx ] Bisacodyl [Dulcolax] 5 mg PO DAILY PRN tablet 05/28/17 [Rx] Bisacodyl [Dulcolax] 10 mg RECTAL DAILY PRN supp 05/28/17 [Rx] Docusate Sodium/Sennosides [Senna Plus] 1 tab PO BID PRN #60 tablet 05/28/17 [Rx ] Insulin Aspart [NovoLOG] See Protocol SUBCUT QIDACANDBED #2 pen 05/28/17 [Rx] Insulin Detemir [Levemir] 42 unit SUBCUT BID #2 pen 05/28/17 [Rx] Levofloxacin [Levaquin] 750 mg PO Q24H #7 tablet 05/28/17 [Rx] Patient Handouts: Diabetes and Foot Care, Hypokalemia, Peripheral Vascular Disease, Onva-es-Qmvn, Cellulitis, Adult, Yrny-kz-Buwk, Potassium Content of Foods, Managing Your High Blood Pressure, Hypertension Forms: ED Department Discharge Referrals: Tye Arreguin MD [Ordering Only Provider] - 05/30/17 3:00 pm (appointment is at [facility] [place] at 3 pm [place] time cme 30 minutes prior to the appointment bring photo id and insurace cardsif need to cancel ot to chage appointment please call [phone] ) Connie Castellon NP [Primary Care Provider] - - Discharge Summary/Plan Comment DC Time >30 min.: Yes (40 min) - General Info Date of Service: 05/28/17 Admission Dx/Problem (Free Text: Diabetic Foot and Toe Ulcer Patient seen this morning, she is feeling "good" this morning. Slept well. Good appetite. No n/v/d, no f/c/s. She has mild pain to lt lower leg, none in her foot. Dressings are CDI. No new concerns. Plans [facility] today. Functional Status: Reports: Pain Controlled, Tolerating Diet, Ambulating (NWB or WB to heel only to lt foot with walker and assist, doing well with this and with PT/OT), Urinating. Denies: New Symptoms - Review of Systems General: Reports: Weakness (improving). Denies: Fever HEENT: Reports: No Symptoms Pulmonary: Reports: No Symptoms. Denies: Shortness of Breath, Cough Cardiovascular: Reports: No Symptoms. Denies: Chest Pain, Palpitations, Dyspnea on Exertion Gastrointestinal: Reports: No Symptoms. Denies: Abdominal Pain, Diarrhea, Nausea, Vomiting Genitourinary: Reports: No Symptoms Musculoskeletal: Reports: Leg Pain, Foot Pain Skin: Reports: No Symptoms Neurological: Reports: No Symptoms Psychiatric: Reports: No Symptoms - Patient Data Vitals - Most Recent: Last Vital Signs Temp 97.3 F 05/28/17 12:07 Pulse 90 05/28/17 12:07 Resp 14 05/28/17 12:07 BP 148/55 H 05/28/17 12:07 Pulse Ox 96 05/28/17 12:07 Weight - Most Recent: 176 lb 6.4 oz I&O - Last 24 hours: Intake & Output 05/27/17 05/28/17 05/28/17 22:59 06:59 14:59 Intake Total 1426 550 240 Output Total 300 Balance 1126 550 240 Lab Results - Last 24 hrs: Laboratory Results - last 24 hr 05/27/17 05/27/17 05/28/17 Range/Units 15:58 21:25 05:58 WBC (3.98-10.04) K/mm3 RBC (3.98-5.22) M/mm3 Hgb (11.2-15.7) gm/L Hct (34.1-44.9) % MCV (79.4-94.8) fl MCH (25.6-32.2) pg MCHC (32.2-35.5) g/dl RDW Std Deviation (36.4-46.3) fL Plt Count (182-369) K/mm3 MPV (9.4-12.3) fl Neut % (Auto) (34.0-71.1) % Lymph % (Auto) (19.3-51.7) % [place] % (Auto) (4.7-12.5) % Eos % (Auto) (0.7-5.8) Baso % (Auto) (0.1-1.2) % Neut # (Auto) (1.56-6.13) K/mm3 Lymph # (Auto) (1.18-3.74) K/mm3 [place] # (Auto) (0.24-0.36) K/mm3 Eos # (Auto) (0.04-0.36) K/mm3 Baso # (Auto) (0.01-0.08) K/mm3 Manual Slide Review Sodium (136-145) mEq/L Potassium (3.5-5.1) mEq/L Chloride (98-107) mEq/L Carbon Dioxide (21-32) mEq/L Anion Gap (5-15) BUN (7-18) mg/dL Creatinine (0.55-1.02) mg/dL Est Cr Clr Drug Dosing mL/min Estimated GFR (MDRD) (>60) mL/min BUN/Creatinine Ratio (14-18) Glucose (83-115) mg/dL POC Glucose 168 H 203 H 92 (83-110) mg/dL Calcium (8.5-10.1) mg/dL Magnesium (1.8-2.4) mg/dl Total Bilirubin (0.2-1.0) mg/dL AST (15-37) U/L ALT (14-59) U/L Alkaline Phosphatase (46-116) U/L C-Reactive Protein (<1.0) mg/dL Total Protein (6.4-8.2) g/dl Albumin (3.4-5.0) g/dl Globulin gm/dL Albumin/Globulin Ratio (1-2) 05/28/17 05/28/17 05/28/17 Range/Units 07:30 07:30 11:30 WBC 13.55 H (3.98-10.04) K/mm3 RBC 4.26 (3.98-5.22) M/mm3 Hgb 10.9 L (11.2-15.7) gm/L Hct 34.6 (34.1-44.9) % MCV 81.2 (79.4-94.8) fl MCH 25.6 (25.6-32.2) pg MCHC 31.5 L (32.2-35.5) g/dl RDW Std Deviation 45.9 (36.4-46.3) fL Plt Count 378 H (182-369) K/mm3 MPV 8.4 L (9.4-12.3) fl Neut % (Auto) 65.4 (34.0-71.1) % Lymph % (Auto) 18.4 L (19.3-51.7) % [place] % (Auto) 8.0 (4.7-12.5) % Eos % (Auto) 1.8 (0.7-5.8) Baso % (Auto) 1.1 (0.1-1.2) % Neut # (Auto) 8.86 H (1.56-6.13) K/mm3 Lymph # (Auto) 2.49 (1.18-3.74) K/mm3 [place] # (Auto) 1.08 H (0.24-0.36) K/mm3 Eos # (Auto) 0.25 (0.04-0.36) K/mm3 Baso # (Auto) 0.15 H (0.01-0.08) K/mm3 Manual Slide Review Abnormal smear Sodium 136 (136-145) mEq/L Potassium 3.3 L (3.5-5.1) mEq/L Chloride 98 (98-107) mEq/L Carbon Dioxide 28 (21-32) mEq/L Anion Gap 13.3 (5-15) BUN 8 (7-18) mg/dL Creatinine 1.0 (0.55-1.02) mg/dL Est Cr Clr Drug Dosing 40.81 mL/min Estimated GFR (MDRD) 55 (>60) mL/min BUN/Creatinine Ratio 8.0 L (14-18) Glucose 119 H (83-115) mg/dL POC Glucose 262 H (83-110) mg/dL Calcium 9.2 (8.5-10.1) mg/dL Magnesium 1.8 (1.8-2.4) mg/dl Total Bilirubin 0.6 (0.2-1.0) mg/dL AST 32 (15-37) U/L ALT 25 (14-59) U/L Alkaline Phosphatase 106 (46-116) U/L C-Reactive Protein 5.4 H* (<1.0) mg/dL Total Protein 8.4 H (6.4-8.2) g/dl Albumin 2.9 L (3.4-5.0) g/dl Globulin 5.5 gm/dL Albumin/Globulin Ratio 0.5 L (1-2) ALLY Results - Last 24 hrs: Microbiology 05/24/17 13:00 Gram Stain - Final Toe, Left - Left Big Anaerobic Culture - Preliminary Enterococcus Faecalis Beta Streptococcus Group G Probable Propionibacter Acnes Med Orders - Current: Current Medications Acetaminophen (Tylenol) 650 mg PO Q4H PRN PRN Reason: Pain (Mild 1-3)/fever Hydrocodone Bitart/Acetaminophen ([place] 325-5 Mg) 1 tab PO Q4H PRN PRN Reason: Pain (moderate 4-6) Last Admin: 05/25/17 10:44 Dose: 1 tab Al Hydroxide/Mg Hydroxide (Mag-Al Plus) 30 ml PO Q4H PRN PRN Reason: Heartburn Last Admin: 05/27/17 20:22 Dose: 30 ml Albuterol/Ipratropium (Duoneb 3.0-0.5 Mg/3 Ml) 3 ml NEB Q4H PRN PRN Reason: Shortness Of Breath/wheezing Amlodipine Besylate (Norvasc) 5 mg PO DAILY [facility] Last Admin: 05/28/17 09:10 Dose: 5 mg Bisacodyl (Dulcolax) 5 mg PO DAILY PRN PRN Reason: Constipation Last Admin: 05/26/17 11:29 Dose: 5 mg Bisacodyl (Dulcolax) 10 mg RECTAL DAILY PRN PRN Reason: Constipation Last Admin: 05/24/17 06:33 Dose: 10 mg Dextrose/Water (Dextrose 50% In Water) 50 ml IVPUSH ASDIRECTED PRN PRN Reason: Hypoglycemia Docusate Sodium (Colace) 100 mg PO BID PRN PRN Reason: Constipation Enoxaparin Sodium (Lovenox) 40 mg SUBCUT BEDTIME [facility] Last Admin: 05/27/17 20:22 Dose: 40 mg Hydralazine HCl (Apresoline) 20 mg IVPUSH Q4H PRN PRN Reason: Hypertension Hydrochlorothiazide (Hydrochlorothiazide) 25 mg PO DAILY [facility] Last Admin: 05/28/17 09:07 Dose: 25 mg Insulin Aspart (Novolog) 0 unit SUBCUT QIDACANDBED [facility] PRN Reason: Protocol Last Admin: 05/28/17 06:24 Dose: Not Given Insulin Detemir (Levemir) 42 unit SUBCUT BID [facility] Last Admin: 05/28/17 09:08 Dose: 42 units Levofloxacin (Levaquin) 750 mg PO Q24H [facility] Last Admin: 05/28/17 09:05 Dose: 750 mg Levothyroxine Sodium (Synthroid) 50 mcg PO ACBREAKFAST [facility] Last Admin: 05/28/17 05:01 Dose: 50 mcg Losartan Potassium (Cozaar) 100 mg PO DAILY [facility] Last Admin: 05/28/17 09:06 Dose: 100 mg Magnesium Sulfate (Pharmacy To Dose - Magnesium Replacement) 0 dose .XX ASDIRECTED PRN PRN Reason: RX TO WATCH MAG LEVELS Metoprolol Tartrate (Lopressor) 5 mg IVPUSH Q4H PRN PRN Reason: Tachycardia Mineral Oil/White Petrolatum (Hydrocerin Crm) 0 gm TOP DAILY [facility] Last Admin: 05/28/17 09:10 Dose: 1 applic Mupirocin (Bactroban Oint) 0 gm TOP DAILY [facility] Last Admin: 05/28/17 09:11 Dose: 1 applic Ondansetron HCl (Zofran) 4 mg IVPUSH Q4H PRN PRN Reason: Nausea/Vomiting Last Admin: 05/24/17 05:44 Dose: 4 mg Polyethylene Glycol (Miralax) 17 gm PO DAILY PRN PRN Reason: Constipation Potassium Chloride (Pharmacy To Dose - Potassium Replacement) 0 dose .XX ASDIRECTED PRN PRN Reason: RX TO WATCH K LEVELS Saccharomyces Boulardii (Florastor) 250 mg PO BID [facility] Last Admin: 05/28/17 09:07 Dose: 250 mg Senna/Docusate Sodium (Senna Plus) 1 tab PO BID PRN PRN Reason: Constipation Simvastatin (Zocor) 20 mg PO BEDTIME [facility] Last Admin: 05/27/17 20:22 Dose: 20 mg Sodium Chloride (Saline Flush) 10 ml FLUSH ASDIRECTED PRN PRN Reason: Keep Vein Open Last Admin: 05/23/17 00:55 Dose: 10 ml Temazepam (Restoril) 15 mg PO BEDTIME PRN PRN Reason: Sleep Discontinued Medications Enoxaparin Sodium (Lovenox) 30 mg SUBCUT ONETIME ONE Stop: 05/23/17 14:23 Last Admin: 05/23/17 17:56 Dose: Not Given Fentanyl (Sublimaze) Confirm Administered Dose 100 mcg .ROUTE .STK-MED ONE Stop: 05/24/17 11:36 Hydromorphone HCl (Dilaudid) 0.5 mg IVPUSH Q4H PRN PRN Reason: Pain (severe 7-10) Sodium Chloride (Normal Saline) 1,000 mls @ 125 mls/hr IV ASDIRECTED [facility] Last Admin: 05/23/17 00:57 Dose: 125 mls/hr Levofloxacin/Dextrose (Levaquin In D5w 750 Mg/150 Ml) Confirm Administered Dose 150 mls @ as directed IV .STK-MED ONE Stop: 05/23/17 02:51 Last Admin: 05/23/17 23:45 Dose: Not Given Potassium Chloride/Sodium Chloride (Normal Saline With 20 Meq Kcl) Confirm Administered Dose 1,000 mls @ as directed .ROUTE .STK-MED ONE Stop: 05/23/17 04:38 Last Admin: 05/23/17 23:45 Dose: Not Given Levofloxacin/Dextrose 750 mg/ (Premix) 150 mls @ 100 mls/hr IV ONETIME ONE Stop: 05/23/17 10:25 Last Admin: 05/23/17 02:52 Dose: 100 mls/hr Potassium Chloride/Sodium Chloride (Normal Saline With 20 Meq Kcl) 1,000 mls @ 100 mls/hr IV ONETIME ONE Stop: 05/23/17 14:34 Last Admin: 05/23/17 04:35 Dose: 100 mls/hr Levofloxacin/Dextrose 250 mg/ (Premix) 50 mls @ 50 mls/hr IV Q24H [facility] Last Admin: 05/27/17 00:59 Dose: 50 mls/hr Vancomycin HCl 1 gm/ Sodium (Chloride) 250 mls @ 250 mls/hr IV Q24H [facility] Piperacillin Sod/Tazobactam (Sod 4.5 gm/ Sodium Chloride) 100 mls @ 200 mls/hr IV ONETIME ONE Stop: 05/23/17 10:29 Last Admin: 05/23/17 11:12 Dose: 200 mls/hr Piperacillin Sod/Tazobactam (Sod 4.5 gm/ Sodium Chloride) 100 mls @ 25 mls/hr IV Q8H [facility] Last Admin: 05/28/17 01:46 Dose: 25 mls/hr Vancomycin HCl 250 mg/Vancomycin HCl 1 gm/ Sodium Chloride 250 mls @ 166 mls/ hr IV Q24H [facility] Last Admin: 05/26/17 15:10 Dose: 166 mls/hr Magnesium Sulfate 4 gm/ Premix 100 mls @ 50 mls/hr IV ONETIME ONE Stop: 05/23/17 16:29 Last Admin: 05/23/17 15:50 Dose: 50 mls/hr Potassium Chloride 10 meq/ (Premix) 100 mls @ 100 mls/hr IV Q1H [facility] Stop: 05/23/17 20:29 Last Admin: 05/23/17 21:45 Dose: 100 mls/hr Lidocaine HCl (Xylocaine-Mpf 1%) Confirm Administered Dose 4 mls @ as directed .ROUTE .STK-MED ONE Stop: 05/24/17 11:35 Lactated Ringer's (Ringers, Lactated) Confirm Administered Dose 1,000 mls @ as directed .ROUTE .STK-MED ONE Stop: 05/24/17 11:37 Magnesium Sulfate (Magnesium Sulfate 2 Gm In Water 50 Ml) 50 mls @ 50 mls/hr IV ONETIME ONE Stop: 05/25/17 11:29 Last Admin: 05/25/17 10:43 Dose: 50 mls/hr Magnesium Sulfate (Magnesium Sulfate 2 Gm In Water 50 Ml) 50 mls @ 50 mls/hr IV ONETIME ONE Stop: 05/26/17 11:59 Last Admin: 05/26/17 11:29 Dose: 50 mls/hr Vancomycin HCl 250 mg/Vancomycin HCl 1 gm/ Sodium Chloride 250 mls @ 166 mls/ hr IV Q18H [facility] Last Admin: 05/28/17 04:59 Dose: 166 mls/hr Insulin Detemir (Levemir) 36 unit SUBCUT BID [facility] Last Admin: 05/25/17 09:09 Dose: 36 units Insulin Detemir (Levemir) 40 unit SUBCUT BID [facility] Last Admin: 05/27/17 08:02 Dose: 40 units Ketamine HCl (Ketalar) Confirm Administered Dose 500 mg .ROUTE .STK-MED ONE Stop: 05/24/17 11:36 Ketamine HCl (Ketalar) Confirm Administered Dose 500 mg .ROUTE .STK-MED ONE Stop: 05/24/17 13:01 Lidocaine HCl (Xylocaine-Mpf 1%) Confirm Administered Dose 30 ml .ROUTE .STK- MED ONE Stop: 05/24/17 12:49 Lorazepam (Ativan) 2 mg IVPUSH Q4H PRN PRN Reason: Seizures Magnesium Oxide (Magnesium Oxide) 400 mg PO WITHLUNCH [facility] Stop: 05/27/17 11:01 Last Admin: 05/27/17 10:48 Dose: 400 mg Metoclopramide HCl (Reglan) Confirm Administered Dose 10 mg .ROUTE .STK-MED ONE Stop: 05/23/17 02:50 Last Admin: 05/23/17 23:45 Dose: Not Given Metoclopramide HCl (Reglan) 10 mg IVPUSH ONETIME ONE Stop: 05/23/17 08:56 Last Admin: 05/23/17 02:49 Dose: 10 mg Midazolam HCl (Versed 1 Mg/Ml) Confirm Administered Dose 2 mg .ROUTE .STK-MED ONE Stop: 05/24/17 11:36 Mineral Oil/White Petrolatum (Minerin Creme) 0 gm TOP DAILY [facility] Last Admin: 05/26/17 13:44 Dose: Not Given Miscellaneous Information (Remove Patch) 1 ea TRDERM ONETIME ONE Stop: 05/26/17 16:00 Last Admin: 05/26/17 17:05 Dose: 1 ea Ondansetron HCl (Zofran) 4 mg IVPUSH ONETIME ONE Stop: 05/23/17 00:48 Last Admin: 05/23/17 00:57 Dose: 4 mg Oral Electrolytes (Thermotabs) 1 each PO ASDIRECTED PRN PRN Reason: Other Oral Electrolytes (Thermotabs) 1 each PO TID [facility] Last Admin: 05/27/17 08:04 Dose: Not Given Potassium Chloride (Klor-Con M20) 40 meq PO Q4H [facility] Stop: 05/23/17 22:31 Last Admin: 05/23/17 17:56 Dose: Not Given Potassium Chloride (Klor-Con M20) 40 meq PO Q4H [facility] Stop: 05/24/17 16:01 Last Admin: 05/24/17 17:33 Dose: Not Given Potassium Chloride (Potassium Chloride Solution) 40 meq PO ONETIME ONE Stop: 05/24/17 18:16 Last Admin: 05/24/17 18:25 Dose: 40 meq Potassium Chloride (Klor-Con M20) 20 meq PO Q3H [facility] Stop: 05/26/17 14:01 Last Admin: 05/26/17 15:11 Dose: 20 meq Propofol (Diprivan 20 Ml) Confirm Administered Dose 200 mg .ROUTE .STK-MED ONE Stop: 05/24/17 11:36 Propofol (Diprivan 20 Ml) Confirm Administered Dose 200 mg .ROUTE .STK-MED ONE Stop: 05/24/17 13:07 Scopolamine (Transderm-Scop) 1.5 mg TRDERM Q72H ONE Stop: 05/23/17 16:02 Last Admin: 05/23/17 16:22 Dose: 1.5 mg Vancomycin HCl (Pharmacy To Dose - Vancomycin) 0 dose .XX ASDIRECTED PRN PRN Reason: RX TO DOSE - Exam Quality Assessment: Reports: DVT Prophylaxis General: Reports: Alert, Oriented, Cooperative, No Acute Distress HEENT: Reports: Pupils Equal, EOMI, Mucous Membr. Moist/[place] Neck: Reports: Supple Lungs: Reports: Clear to Auscultation, Normal Respiratory Effort, Decreased Breath Sounds (bases) Cardiovascular: Reports: Regular Rate, Regular Rhythm GI/Abdominal Exam: Normal Bowel Sounds, Soft, Non-Tender, No Organomegaly (Female) Exam: Deferred Rectal (Female) Exam: Deferred Back Exam: Reports: Normal Inspection Extremities: Other (dressings to bilat feet are CDI; shiny taut skin to bilateral tibial areas, worse to lt side. Pain to lt leg is less with palpation today; no edema today to LE) Wound/Incisions: Reports: Dressing Dry and Intact Neurological: Reports: No New Focal Deficit Psy/Mental Status: Reports: Alert, Normal Affect, Normal Mood, Other (pleasant and talkative today) *Q Meaningful Use (DIS) - VTE *Q VTE Criteria *Q: - Stroke *Q Stroke Criteria *Q: - AMI *Q AMI Criteria *Q:
[2017-05-28] MEDS: Enoxaparin 40 MG/0.4 ML Syringe SUBCUT SCH (21:23)
[2017-05-28] MEDS: Simvastatin 20 MG Tab PO SCH (21:23)
--- NOTE | 2017-05-29 06:21 | PCM.PN ---
- General Info Date of Service: 05/29/17 Admission Dx/Problem (Free Text): Diabetic Foot and Toe Ulcer Patient seen this morning, she is feeling "good" this morning. Slept well. Good appetite. No n/v/d, no f/c/s. She has mild pain to lt lower leg, none in her foot. Dressings are CDI. No new concerns. Plans for DC to [facility] for Rehab stay today; discharge/placement was delayed yesterday - she will be discharged today Functional Status: Reports: Pain Controlled, Tolerating Diet, Urinating. Denies : New Symptoms - Review of Systems General: Reports: No Symptoms HEENT: Reports: No Symptoms Pulmonary: Reports: No Symptoms Cardiovascular: Reports: No Symptoms Gastrointestinal: Reports: No Symptoms Genitourinary: Reports: No Symptoms Musculoskeletal: Reports: Leg Pain, Foot Pain (minimal) Skin: Reports: No Symptoms Neurological: Reports: No Symptoms Psychiatric: Reports: No Symptoms - Patient Data Vitals - Most Recent: Last Vital Signs Temp 97.9 F 05/29/17 04:51 Pulse 81 05/29/17 04:51 Resp 16 05/29/17 04:51 BP 111/49 L 05/29/17 04:51 Pulse Ox 97 05/29/17 04:51 Weight - Most Recent: 175 lb 6.4 oz I&O - Last 24 Hours: Intake & Output 05/28/17 05/28/17 05/29/17 14:59 22:59 06:59 Intake Total 360 820 400 Output Total 300 Balance 360 520 400 Lab Results Last 24 Hours: Laboratory Results - last 24 hr 05/28/17 05/28/17 05/28/17 Range/Units 07:30 07:30 11:30 WBC 13.55 H (3.98-10.04) K/mm3 RBC 4.26 (3.98-5.22) M/mm3 Hgb 10.9 L (11.2-15.7) gm/L Hct 34.6 (34.1-44.9) % MCV 81.2 (79.4-94.8) fl MCH 25.6 (25.6-32.2) pg MCHC 31.5 L (32.2-35.5) g/dl RDW Std Deviation 45.9 (36.4-46.3) fL Plt Count 378 H (182-369) K/mm3 MPV 8.4 L (9.4-12.3) fl Neut % (Auto) 65.4 (34.0-71.1) % Lymph % (Auto) 18.4 L (19.3-51.7) % [place] % (Auto) 8.0 (4.7-12.5) % Eos % (Auto) 1.8 (0.7-5.8) Baso % (Auto) 1.1 (0.1-1.2) % Neut # (Auto) 8.86 H (1.56-6.13) K/mm3 Lymph # (Auto) 2.49 (1.18-3.74) K/mm3 [place] # (Auto) 1.08 H (0.24-0.36) K/mm3 Eos # (Auto) 0.25 (0.04-0.36) K/mm3 Baso # (Auto) 0.15 H (0.01-0.08) K/mm3 Manual Slide Review Abnormal smear Sodium 136 (136-145) mEq/L Potassium 3.3 L (3.5-5.1) mEq/L Chloride 98 (98-107) mEq/L Carbon Dioxide 28 (21-32) mEq/L Anion Gap 13.3 (5-15) BUN 8 (7-18) mg/dL Creatinine 1.0 (0.55-1.02) mg/dL Est Cr Clr Drug Dosing 40.81 mL/min Estimated GFR (MDRD) 55 (>60) mL/min BUN/Creatinine Ratio 8.0 L (14-18) Glucose 119 H (83-115) mg/dL POC Glucose 262 H (83-110) mg/dL Calcium 9.2 (8.5-10.1) mg/dL Magnesium 1.8 (1.8-2.4) mg/dl Total Bilirubin 0.6 (0.2-1.0) mg/dL AST 32 (15-37) U/L ALT 25 (14-59) U/L Alkaline Phosphatase 106 (46-116) U/L C-Reactive Protein 5.4 H* (<1.0) mg/dL Total Protein 8.4 H (6.4-8.2) g/dl Albumin 2.9 L (3.4-5.0) g/dl Globulin 5.5 gm/dL Albumin/Globulin Ratio 0.5 L (1-2) 05/28/17 05/28/17 Range/Units 16:32 21:14 WBC (3.98-10.04) K/mm3 RBC (3.98-5.22) M/mm3 Hgb (11.2-15.7) gm/L Hct (34.1-44.9) % MCV (79.4-94.8) fl MCH (25.6-32.2) pg MCHC (32.2-35.5) g/dl RDW Std Deviation (36.4-46.3) fL Plt Count (182-369) K/mm3 MPV (9.4-12.3) fl Neut % (Auto) (34.0-71.1) % Lymph % (Auto) (19.3-51.7) % [place] % (Auto) (4.7-12.5) % Eos % (Auto) (0.7-5.8) Baso % (Auto) (0.1-1.2) % Neut # (Auto) (1.56-6.13) K/mm3 Lymph # (Auto) (1.18-3.74) K/mm3 [place] # (Auto) (0.24-0.36) K/mm3 Eos # (Auto) (0.04-0.36) K/mm3 Baso # (Auto) (0.01-0.08) K/mm3 Manual Slide Review Sodium (136-145) mEq/L Potassium (3.5-5.1) mEq/L Chloride (98-107) mEq/L Carbon Dioxide (21-32) mEq/L Anion Gap (5-15) BUN (7-18) mg/dL Creatinine (0.55-1.02) mg/dL Est Cr Clr Drug Dosing mL/min Estimated GFR (MDRD) (>60) mL/min BUN/Creatinine Ratio (14-18) Glucose (83-115) mg/dL POC Glucose 164 H 210 H (83-110) mg/dL Calcium (8.5-10.1) mg/dL Magnesium (1.8-2.4) mg/dl Total Bilirubin (0.2-1.0) mg/dL AST (15-37) U/L ALT (14-59) U/L Alkaline Phosphatase (46-116) U/L C-Reactive Protein (<1.0) mg/dL Total Protein (6.4-8.2) g/dl Albumin (3.4-5.0) g/dl Globulin gm/dL Albumin/Globulin Ratio (1-2) Sathya Results Last 24 Hours: Microbiology 05/24/17 13:00 Gram Stain - Final Toe, Left - Left Big Anaerobic Culture - Preliminary Enterococcus Faecalis Beta Streptococcus Group G Probable Propionibacter Acnes Med Orders - Current: Current Medications Acetaminophen (Tylenol) 650 mg PO Q4H PRN PRN Reason: Pain (Mild 1-3)/fever Hydrocodone Bitart/Acetaminophen ([place] 325-5 Mg) 1 tab PO Q4H PRN PRN Reason: Pain (moderate 4-6) Last Admin: 05/25/17 10:44 Dose: 1 tab Al Hydroxide/Mg Hydroxide (Mag-Al Plus) 30 ml PO Q4H PRN PRN Reason: Heartburn Last Admin: 05/27/17 20:22 Dose: 30 ml Albuterol/Ipratropium (Duoneb 3.0-0.5 Mg/3 Ml) 3 ml NEB Q4H PRN PRN Reason: Shortness Of Breath/wheezing Amlodipine Besylate (Norvasc) 5 mg PO DAILY [facility] Last Admin: 05/28/17 09:10 Dose: 5 mg Bisacodyl (Dulcolax) 5 mg PO DAILY PRN PRN Reason: Constipation Last Admin: 05/26/17 11:29 Dose: 5 mg Bisacodyl (Dulcolax) 10 mg RECTAL DAILY PRN PRN Reason: Constipation Last Admin: 05/24/17 06:33 Dose: 10 mg Dextrose/Water (Dextrose 50% In Water) 50 ml IVPUSH ASDIRECTED PRN PRN Reason: Hypoglycemia Docusate Sodium (Colace) 100 mg PO BID PRN PRN Reason: Constipation Enoxaparin Sodium (Lovenox) 40 mg SUBCUT BEDTIME [facility] Last Admin: 05/28/17 21:23 Dose: 40 mg Hydralazine HCl (Apresoline) 20 mg IVPUSH Q4H PRN PRN Reason: Hypertension Hydrochlorothiazide (Hydrochlorothiazide) 25 mg PO DAILY [facility] Last Admin: 05/28/17 09:07 Dose: 25 mg Insulin Aspart (Novolog) 0 unit SUBCUT QIDACANDBED [facility] PRN Reason: Protocol Last Admin: 05/28/17 21:22 Dose: 6 units Insulin Detemir (Levemir) 42 unit SUBCUT BID [facility] Last Admin: 05/28/17 21:20 Dose: 42 units Levofloxacin (Levaquin) 750 mg PO Q24H [facility] Last Admin: 05/28/17 09:05 Dose: 750 mg Levothyroxine Sodium (Synthroid) 50 mcg PO ACBREAKFAST [facility] Last Admin: 05/28/17 05:01 Dose: 50 mcg Losartan Potassium (Cozaar) 100 mg PO DAILY [facility] Last Admin: 05/28/17 09:06 Dose: 100 mg Magnesium Sulfate (Pharmacy To Dose - Magnesium Replacement) 0 dose .XX ASDIRECTED PRN PRN Reason: RX TO WATCH MAG LEVELS Metoprolol Tartrate (Lopressor) 5 mg IVPUSH Q4H PRN PRN Reason: Tachycardia Mineral Oil/White Petrolatum (Hydrocerin Crm) 0 gm TOP DAILY [facility] Last Admin: 05/28/17 09:10 Dose: 1 applic Mupirocin (Bactroban Oint) 0 gm TOP DAILY [facility] Last Admin: 05/28/17 09:11 Dose: 1 applic Ondansetron HCl (Zofran) 4 mg IVPUSH Q4H PRN PRN Reason: Nausea/Vomiting Last Admin: 05/24/17 05:44 Dose: 4 mg Polyethylene Glycol (Miralax) 17 gm PO DAILY PRN PRN Reason: Constipation Potassium Chloride (Pharmacy To Dose - Potassium Replacement) 0 dose .XX ASDIRECTED PRN PRN Reason: RX TO WATCH K LEVELS Saccharomyces Boulardii (Florastor) 250 mg PO BID [facility] Last Admin: 05/28/17 21:23 Dose: 250 mg Senna/Docusate Sodium (Senna Plus) 1 tab PO BID PRN PRN Reason: Constipation Simvastatin (Zocor) 20 mg PO BEDTIME [facility] Last Admin: 05/28/17 21:23 Dose: 20 mg Sodium Chloride (Saline Flush) 10 ml FLUSH ASDIRECTED PRN PRN Reason: Keep Vein Open Last Admin: 05/23/17 00:55 Dose: 10 ml Temazepam (Restoril) 15 mg PO BEDTIME PRN PRN Reason: Sleep Discontinued Medications Enoxaparin Sodium (Lovenox) 30 mg SUBCUT ONETIME ONE Stop: 05/23/17 14:23 Last Admin: 05/23/17 17:56 Dose: Not Given Fentanyl (Sublimaze) Confirm Administered Dose 100 mcg .ROUTE .STK-MED ONE Stop: 05/24/17 11:36 Hydromorphone HCl (Dilaudid) 0.5 mg IVPUSH Q4H PRN PRN Reason: Pain (severe 7-10) Sodium Chloride (Normal Saline) 1,000 mls @ 125 mls/hr IV ASDIRECTED [facility] Last Admin: 05/23/17 00:57 Dose: 125 mls/hr Levofloxacin/Dextrose (Levaquin In D5w 750 Mg/150 Ml) Confirm Administered Dose 150 mls @ as directed IV .ST-MED ONE Stop: 05/23/17 02:51 Last Admin: 05/23/17 23:45 Dose: Not Given Potassium Chloride/Sodium Chloride (Normal Saline With 20 Meq Kcl) Confirm Administered Dose 1,000 mls @ as directed .ROUTE .[facility]-MED ONE Stop: 05/23/17 04:38 Last Admin: 05/23/17 23:45 Dose: Not Given Levofloxacin/Dextrose 750 mg/ (Premix) 150 mls @ 100 mls/hr IV ONETIME ONE Stop: 05/23/17 10:25 Last Admin: 05/23/17 02:52 Dose: 100 mls/hr Potassium Chloride/Sodium Chloride (Normal Saline With 20 Meq Kcl) 1,000 mls @ 100 mls/hr IV ONETIME ONE Stop: 05/23/17 14:34 Last Admin: 05/23/17 04:35 Dose: 100 mls/hr Levofloxacin/Dextrose 250 mg/ (Premix) 50 mls @ 50 mls/hr IV Q24H [facility] Last Admin: 05/27/17 00:59 Dose: 50 mls/hr Vancomycin HCl 1 gm/ Sodium (Chloride) 250 mls @ 250 mls/hr IV Q24H [facility] Piperacillin Sod/Tazobactam (Sod 4.5 gm/ Sodium Chloride) 100 mls @ 200 mls/hr IV ONETIME ONE Stop: 05/23/17 10:29 Last Admin: 05/23/17 11:12 Dose: 200 mls/hr Piperacillin Sod/Tazobactam (Sod 4.5 gm/ Sodium Chloride) 100 mls @ 25 mls/hr IV Q8H [facility] Last Admin: 05/28/17 01:46 Dose: 25 mls/hr Vancomycin HCl 250 mg/Vancomycin HCl 1 gm/ Sodium Chloride 250 mls @ 166 mls/ hr IV Q24H [facility] Last Admin: 05/26/17 15:10 Dose: 166 mls/hr Magnesium Sulfate 4 gm/ Premix 100 mls @ 50 mls/hr IV ONETIME ONE Stop: 05/23/17 16:29 Last Admin: 05/23/17 15:50 Dose: 50 mls/hr Potassium Chloride 10 meq/ (Premix) 100 mls @ 100 mls/hr IV Q1H [facility] Stop: 05/23/17 20:29 Last Admin: 05/23/17 21:45 Dose: 100 mls/hr Lidocaine HCl (Xylocaine-Mpf 1%) Confirm Administered Dose 4 mls @ as directed .ROUTE .STK-MED ONE Stop: 05/24/17 11:35 Lactated Ringer's (Ringers, Lactated) Confirm Administered Dose 1,000 mls @ as directed .ROUTE .STK-MED ONE Stop: 05/24/17 11:37 Magnesium Sulfate (Magnesium Sulfate 2 Gm In Water 50 Ml) 50 mls @ 50 mls/hr IV ONETIME ONE Stop: 05/25/17 11:29 Last Admin: 05/25/17 10:43 Dose: 50 mls/hr Magnesium Sulfate (Magnesium Sulfate 2 Gm In Water 50 Ml) 50 mls @ 50 mls/hr IV ONETIME ONE Stop: 05/26/17 11:59 Last Admin: 05/26/17 11:29 Dose: 50 mls/hr Vancomycin HCl 250 mg/Vancomycin HCl 1 gm/ Sodium Chloride 250 mls @ 166 mls/ hr IV Q18H [facility] Last Admin: 05/28/17 04:59 Dose: 166 mls/hr Insulin Detemir (Levemir) 36 unit SUBCUT BID [facility] Last Admin: 05/25/17 09:09 Dose: 36 units Insulin Detemir (Levemir) 40 unit SUBCUT BID [facility] Last Admin: 05/27/17 08:02 Dose: 40 units Ketamine HCl (Ketalar) Confirm Administered Dose 500 mg .ROUTE .STK-MED ONE Stop: 05/24/17 11:36 Ketamine HCl (Ketalar) Confirm Administered Dose 500 mg .ROUTE .STK-MED ONE Stop: 05/24/17 13:01 Lidocaine HCl (Xylocaine-Mpf 1%) Confirm Administered Dose 30 ml .ROUTE .STK- MED ONE Stop: 05/24/17 12:49 Lorazepam (Ativan) 2 mg IVPUSH Q4H PRN PRN Reason: Seizures Magnesium Oxide (Magnesium Oxide) 400 mg PO WITHLUNCH DANETTE Stop: 05/27/17 11:01 Last Admin: 05/27/17 10:48 Dose: 400 mg Metoclopramide HCl (Reglan) Confirm Administered Dose 10 mg .ROUTE .STK-MED ONE Stop: 05/23/17 02:50 Last Admin: 05/23/17 23:45 Dose: Not Given Metoclopramide HCl (Reglan) 10 mg IVPUSH ONETIME ONE Stop: 05/23/17 08:56 Last Admin: 05/23/17 02:49 Dose: 10 mg Midazolam HCl (Versed 1 Mg/Ml) Confirm Administered Dose 2 mg .ROUTE .ST-MED ONE Stop: 05/24/17 11:36 Mineral Oil/White Petrolatum (Minerin Creme) 0 gm TOP DAILY [facility] Last Admin: 05/26/17 13:44 Dose: Not Given Miscellaneous Information (Remove Patch) 1 ea TRDERM ONETIME ONE Stop: 05/26/17 16:00 Last Admin: 05/26/17 17:05 Dose: 1 ea Ondansetron HCl (Zofran) 4 mg IVPUSH ONETIME ONE Stop: 05/23/17 00:48 Last Admin: 05/23/17 00:57 Dose: 4 mg Oral Electrolytes (Thermotabs) 1 each PO ASDIRECTED PRN PRN Reason: Other Oral Electrolytes (Thermotabs) 1 each PO TID [facility] Last Admin: 05/27/17 08:04 Dose: Not Given Potassium Chloride (Klor-Con M20) 40 meq PO Q4H [facility] Stop: 05/23/17 22:31 Last Admin: 05/23/17 17:56 Dose: Not Given Potassium Chloride (Klor-Con M20) 40 meq PO Q4H [facility] Stop: 05/24/17 16:01 Last Admin: 08/25/17 17:33 Dose: Not Given Potassium Chloride (Potassium Chloride Solution) 40 meq PO ONETIME ONE Stop: 05/24/17 18:16 Last Admin: 05/24/17 18:25 Dose: 40 meq Potassium Chloride (Klor-Con M20) 20 meq PO Q3H DANETTE Stop: 05/26/17 14:01 Last Admin: 05/26/17 15:11 Dose: 20 meq Propofol (Diprivan 20 Ml) Confirm Administered Dose 200 mg .ROUTE .STK-MED ONE Stop: 05/24/17 11:36 Propofol (Diprivan 20 Ml) Confirm Administered Dose 200 mg .ROUTE .STK-MED ONE Stop: 05/24/17 13:07 Scopolamine (Transderm-Scop) 1.5 mg TRDERM Q72H ONE Stop: 05/23/17 16:02 Last Admin: 05/23/17 16:22 Dose: 1.5 mg Vancomycin HCl (Pharmacy To Dose - Vancomycin) 0 dose .XX ASDIRECTED PRN PRN Reason: RX TO DOSE - Exam Quality Assessment: DVT Prophylaxis General: Alert, Oriented, No Acute Distress HEENT: Pupils Equal, EOMI, Mucous Membr. Moist/[place] Neck: Supple Lungs: Clear to Auscultation, Normal Respiratory Effort Cardiovascular: Regular Rate, Regular Rhythm GI/Abdominal Exam: Normal Bowel Sounds, Soft, Non-Tender (Female) Exam: Deferred Extremities: Other (dressings CDI to bilat feet) Neurological: No New Focal Deficit Psy/Mental Status: Alert, Normal Affect, Normal Mood - Problem List & Annotations (1) Cellulitis SNOMED Code(s): 729772621 Code(s): L03.90 - CELLULITIS, UNSPECIFIED Status: Resolved Priority: High Current Visit: Yes Qualifiers: Site of cellulitis: extremity Site of cellulitis of extremity: lower extremity Laterality: right Qualified Code(s): L03.115 - Cellulitis of right lower limb (2) Foot ulcer SNOMED Code(s): 58166920, 96290974 Code(s): L97.509 - NON-PRESSURE CHRONIC ULCER OTH PRT UNSP FOOT W UNSP SEVERITY Status: Acute Priority: High Current Visit: Yes Qualifiers: Laterality: right Non-pressure ulcer stage: unspecified non-pressure ulcer stage Qualified Code(s): L97.519 - Non-pressure chronic ulcer of other part of right foot with unspecified severity (3) Diabetes mellitus SNOMED Code(s): 44001282 Code(s): E11.9 - TYPE 2 DIABETES MELLITUS WITHOUT COMPLICATIONS Status: Chronic Priority: High Current Visit: Yes Qualifiers: Diabetes mellitus type: type 2 Diabetes mellitus complication status: with skin complications Diabetes mellitus complication detail: with foot ulcer Diabetes mellitus 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 Qualified Code(s) : E11.621 - Type 2 diabetes mellitus with foot ulcer; L97.509 - Non-pressure chronic ulcer of other part of unspecified foot with unspecified severity; Z79.4 - meterman (current) use of insulin (4) Peripheral vascular disease SNOMED Code(s): 376758004 Code(s): I73.9 - PERIPHERAL VASCULAR DISEASE, UNSPECIFIED Status: Chronic Priority: High Current Visit: Yes (5) Hypokalemia SNOMED Code(s): 27825313 Code(s): E87.6 - HYPOKALEMIA Status: Resolved Priority: High Current Visit: Yes (6) Nausea & vomiting SNOMED Code(s): 07588380 Code(s): R11.2 - NAUSEA WITH VOMITING, UNSPECIFIED Status: Resolved Priority: High Current Visit: Yes Qualifiers: Vomiting type: unspecified Vomiting Intractability: non-intractable Qualified Code(s): R11.2 - Nausea with vomiting, unspecified (7) UTI (urinary tract infection) SNOMED Code(s): 11582219 Code(s): N39.0 - URINARY TRACT INFECTION, SITE NOT SPECIFIED Status: Acute Priority: High Current Visit: Yes Qualifiers: Urinary tract infection type: site unspecified Hematuria presence: without hematuria Qualified Code(s): N39.0 - Urinary tract infection, site not specified - Problem List Review Problem List Initiated/Reviewed/Updated: Yes - My Orders Last 24 Hours: My Active Orders 05/28/17 07:15 Levofloxacin [Levaquin] 750 mg PO Q24H 05/28/17 12:18 Ready for Discharge [RC] PER UNIT ROUTINE 05/29/17 06:14 Ready for Discharge [RC] PER UNIT ROUTINE - Plan Plan:: Assessment/Plan: Acute: Diabetic Foot and Toe Ulcer S/p I&D POD#4, Stable - B/L Foot - Risk factors DM and PAD - PO levaquin--sensitive - Outpatient vascular surgeon consult- mild PVD Leukocytosis, Continue to improve - Treat underlying cause, as above Mild Hyponatremia---resolved - Na still at 134 - Likely 2/2 uncontrolled BS - Continue salt tablet TID Hyperglycemia with DM2 - BS is much more controlled, now < 200s - A1C is now is 8.3 - Continue Levemir/Lantus 42 mg units SubQ BID and High dose ISS - Continue Accu-check QIDandHS UTI - Risk factor: DM - UA pos for UTI - Continue IV ATB - No UA Cx/Sx done Mild PAD - Arterial study with padnet completed- results of mild PAD - Consult with vascular surgery as outpatient Resolved: Hypokalemia - K 2.8 - 2/2 inadequate intake and hyperglycemia - Currently receiving supplement - Pharmacy to replete and monitor on next level Chronic: Impaired Vision HTN HLD Constipation Recurrent UTI DM2 Hypothyrodism Chronic Anemia Overweight Plan: She remains clinically stable Routine AM Labs Continue PT/OT SW/CM for d/c planning GS following She may need SNF/Rehab Additional orders as above Code status: 1 LOS anticipate > 96 hrs for possible SNF/Rehab placement, Sensitivities pending DC to [facility]/SNF today, DC was delayed yesterday but accepted today.
[2017-05-29] MEDS: Levothyroxine 50 MCG Tab PO SCH (06:43)
[2017-05-29] MEDS: Levofloxacin 750 MG Tab PO SCH (06:44)
[2017-05-29] MEDS: Insulin Aspart 100 Units/ML 3 ML Pen SUBCUT SCH (06:49)
[2017-05-29 08:26] VITALS: BP 119/49
[2017-05-29] MEDS: Hydrochlorothiazide 25 MG Tab PO SCH (08:27)
[2017-05-29] MEDS: amLODIPine 5 MG Tab PO SCH (08:27)
[2017-05-29] MEDS: Saccharomyces Boulardii (Probiotic) 250 MG Cap PO SCH (08:27)
[2017-05-29] MEDS: Losartan 100 MG Tab PO SCH (08:27)
[2017-05-29] MEDS: Mupirocin Oint 22 GM Tube TOP SCH (08:27)
[2017-05-29] MEDS: Mineral Oil/White Petrolatum Crm 113 GM Jar TOP SCH (08:27)
[2017-05-29] MEDS: Insulin Detemir 100 Units/ML 3 ML Pen SUBCUT SCH (08:28)
== END 2017-05-29 10:40 | DRG 623 ==
LOC: JD.ED 00:24 → JD.MS 04:13
PROVIDERS: ADMIT Internal Medicine; ATTEND Internal Medicine
PROC: 0JBQ0ZZ Excision of Right Foot Subcutaneous Tissue and Fascia, Open Approach (ICD-10-PCS; principal; 2017-05-24)
PROC: 0JBR0ZZ Excision of Left Foot Subcutaneous Tissue and Fascia, Open Approach (ICD-10-PCS; 2017-05-24)
DX: E11.621 Type 2 diabetes mellitus with foot ulcer (principal); E87.1 Hypo-osmolality and hyponatremia; N39.0 Urinary tract infection, site not specified; L03.115 Cellulitis of right lower limb; L08.9 Local infection of the skin and subcutaneous tissue, unspecified; L97.519 Non-pressure chronic ulcer of other part of right foot with unspecified severity; E78.00 Pure hypercholesterolemia, unspecified; L97.529 Non-pressure chronic ulcer of other part of left foot with unspecified severity; E11.9 Type 2 diabetes mellitus without complications; E11.65 Type 2 diabetes mellitus with hyperglycemia; Z79.4 Long term (current) use of insulin; D72.829 Elevated white blood cell count, unspecified; E87.6 Hypokalemia; R10.9 Unspecified abdominal pain; H54.7 Unspecified visual loss; I10 Essential (primary) hypertension; E78.5 Hyperlipidemia, unspecified; K59.09 Other constipation; Z87.440 Personal history of urinary (tract) infections; E03.9 Hypothyroidism, unspecified; D64.9 Anemia, unspecified; E66.3 Overweight; Z87.891 Personal history of nicotine dependence; Z79.899 Other long term (current) drug therapy; E83.42 Hypomagnesemia; B95.2 Enterococcus as the cause of diseases classified elsewhere; B95.1 Streptococcus, group B, as the cause of diseases classified elsewhere; I73.9 Peripheral vascular disease, unspecified
CPT/HCPCS: 36415; 71010; 80053; 81003; 83605; 83690; 85025; 87040 ×2; 96361; 96365; 96366; 96375; 99285; J1956; J2405; J2765; J7040; J7050; P9612; 00400; 80048; 80202; 82962; 83036; 83735; 84439; 84443; 86140; 87075; 87077; 87181; 87184; 87186; 87205; 92610-GN; 93005; 93923; 97110-GO; 97110-GP; 97116-GP; 97162-GP; 97166-GO; 97530-GP; A9270-GY; J1650; J1815-GY; J2250; J2543; J2704; J3010; J3370; J3475; J3480; J7030; J7120

== ENCOUNTER 2019-08-31 12:36 | Inpatient (IN) | payer MEDICARE, MEDICAID ==
[2019-08-31] MEDS ORDERED: Ondansetron 4 MG/2 ML SDV IVPUSH ONE ×2 (13:13→15:46)
[2019-08-31] MEDS ORDERED: Sodium Chloride 0.9% 1,000 ML IV SCH ×3 (13:15→17:30)
--- NOTE | 2019-08-31 13:28 | EDM.PDOC ---
ED HPI GENERAL MEDICAL PROBLEM - General Chief Complaint: Gastrointestinal Problem Stated Complaint: HIGH BLOOD SUGAR Time Seen by Provider: 08/31/19 12:59 - History of Present Illness INITIAL COMMENTS - FREE TEXT/NARRATIVE: Patient is a 74-year-old female who presents with complaints of nausea and vomiting since 2:00 this morning. She is also concerned that her blood sugars were elevated over 300 at home. She denies any diarrhea or abdominal pain, however she does feel like she could be constipated. She is had no known sick contacts and has not eaten any questionable foods. She states since 0200 she has been unable to keep food or liquids down. She is a type II, insulin- dependent diabetic. She says she did take her insulin this morning. - Related Data Allergies Allergy/AdvReac Type Severity Reaction Status Date / Time No Known Allergies Allergy Verified 08/31/19 12:56 Home Meds: Home Meds Levothyroxine [Synthroid] 50 mcg PO DAILY 02/03/17 [History] Losartan Potassium [Cozaar] 100 mg PO DAILY 02/03/17 [History] Simvastatin [Zocor] 20 mg PO BEDTIME 02/03/17 [History] amLODIPine [Norvasc] 5 mg PO DAILY 02/03/17 [History] Acetaminophen [Tylenol] 650 mg PO Q4H PRN #60 tablet 05/28/17 [Rx] Acetaminophen/HYDROcodone [[place] 325-5 MG] 1 tab PO Q4H PRN #40 tablet 05/28/17 [Rx] Alum Hydrox/Mag Hydrox/Simeth [Mag-Al Plus] 30 ml PO Q4H PRN #0 cup 05/28/17 [Rx ] Bisacodyl [Dulcolax] 5 mg PO DAILY PRN tablet 05/28/17 [Rx] Bisacodyl [Dulcolax] 10 mg RECTAL DAILY PRN supp 05/28/17 [Rx] Docusate Sodium/Sennosides [Senna Plus] 1 tab PO BID PRN #60 tablet 05/28/17 [Rx ] Insulin Aspart [NovoLOG] See Protocol SUBCUT TIDAC 09/17/18 [History] Potassium Chloride 20 meq PO DAILY 09/17/18 [History] Insulin Detemir [Levemir] 37 unit SUBCUT BEDTIME 08/31/19 [History] Past Medical History HEENT History: Reports: Cataract, Impaired Vision Other HEENT History: wears eyeglasses, strep throat Cardiovascular History: Reports: High Cholesterol, Hypertension Gastrointestinal History: Reports: Chronic Constipation Genitourinary History: Reports: UTI, Recurrent 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 - Past Surgical History HEENT Surgical History: Reports: Cataract Surgery, Tonsillectomy GI Surgical History: Reports: None Social & Family History - Family History Family Medical History: Noncontributory - Tobacco Use Smoking Status *Q: Never Smoker - Caffeine Use Caffeine Use: Reports: Soda, Tea Other Caffeine Use: regular soda - Living Situation & Occupation Living situation: Reports: Occupation: Disabled ED ROS GENERAL - Review of Systems Review Of Systems: See Below Constitutional: Reports: Chills. Denies: Fever, Weakness HEENT: Reports: No Symptoms Respiratory: Reports: No Symptoms Cardiovascular: Reports: No Symptoms Endocrine: Reports: High Glucose GI/Abdominal: Reports: Nausea, Vomiting. Denies: Abdominal Pain, Diarrhea : Reports: No Symptoms Musculoskeletal: Reports: No Symptoms Skin: Reports: No Symptoms Neurological: Reports: No Symptoms. Denies: Dizziness, Headache Psychiatric: Reports: No Symptoms Hematologic/Lymphatic: Reports: No Symptoms Immunologic: Reports: No Symptoms ED EXAM, GI/ABD - Physical Exam Exam: See Below Exam Limited By: No Limitations General Appearance: Alert, WD/WN, No Apparent Distress Throat/Mouth: Normal Inspection, Normal Oropharynx Head: Atraumatic, Normocephalic Respiratory/Chest: No Respiratory Distress, Lungs Clear, Normal Breath Sounds, No Accessory Muscle Use, Chest Non-Tender Cardiovascular: Normal Peripheral Pulses, Regular Rate, Rhythm, No Edema, No Murmur GI/Abdominal Exam: Normal Bowel Sounds, Soft, Non-Tender, No Organomegaly, No Distention, No Mass Extremities: Normal Inspection, No Pedal Edema Neurological: Alert, Oriented, Normal Cognition Psychiatric: Normal Affect, Normal Mood Skin Exam: Warm, Dry, Intact, Normal Color, No Rash Course - Vital Signs Last Recorded V/S: Last Vital Signs Temp 98.9 F 08/31/19 12:54 Pulse 114 H 08/31/19 12:54 Resp 16 08/31/19 12:54 BP 121/96 H 08/31/19 12:54 Pulse Ox 95 08/31/19 12:54 - Orders/Labs/Meds Orders: Active Orders 24 hr Category Date Time Status Patient Status [ADT] Routine ADT 08/31/19 19:53 Active Abdomen 1V Flat [CR] Stat Exams 08/31/19 13:28 Taken CULTURE BLOOD [BC] Stat Lab 08/31/19 17:58 Received CULTURE BLOOD [BC] Stat Lab 08/31/19 18:09 Received LACTIC ACID [CHEM] Q3H Lab 08/31/19 19:56 Ordered LACTIC ACID [CHEM] Q3 Lab 08/31/19 22:56 Ordered LACTIC ACID [CHEM] Q3H Lab 09/01/19 01:56 Ordered LACTIC ACID [CHEM] Q3H Lab 09/01/19 04:56 Ordered Lactated Ringers [Ringers, Lactated] 1,000 ml Med 08/31/19 20:00 Active IV ASDIRECTED Sodium Chloride 0.9% [Normal Saline] 1,000 ml Med 08/31/19 13:15 Active IV ASDIRECTED Sodium Chloride 0.9% [Normal Saline] 1,000 ml Med 08/31/19 17:30 Active IV ASDIRECTED Sodium Chloride 0.9% [Normal Saline] 100 ml Med 08/31/19 16:00 Active IV ASDIRECTED Sodium Chloride 0.9% [Saline Flush] Med 08/31/19 13:15 Active 10 ml FLUSH ASDIRECTED PRN cefTRIAXone [Rocephin] 2 gm Med 08/31/19 17:30 Active Sodium Chloride 0.9% [Normal Saline] 100 ml IV Q24H Blood Culture x2 Reflex Set [OM.PC] Stat Oth 08/31/19 17:35 Ordered Peripheral IV Insertion Adult [OM.PC] Stat Oth 08/31/19 13:15 Ordered Medication Orders Sodium Chloride (Normal Saline) 1,000 mls @ 999 mls/hr IV ASDIRECTED DANETTE Last Admin: 08/31/19 13:56 Dose: 999 mls/hr Sodium Chloride (Normal Saline) 100 mls @ 60 mls/hr IV ASDIRECTED DANETTE Last Admin: 08/31/19 16:08 Dose: 60 mls/hr Ceftriaxone Sodium 2 gm/ (Sodium Chloride) 100 mls @ 200 mls/hr IV Q24H DANETTE Last Admin: 08/31/19 18:17 Dose: 200 mls/hr Sodium Chloride (Normal Saline) 1,000 mls @ 150 mls/hr IV ASDIRECTED DANETTE Last Admin: 08/31/19 18:17 Dose: 150 mls/hr Lactated Ringer's (Ringers, Lactated) 1,000 mls @ 200 mls/hr IV ASDIRECTED DANETTE Stop: 09/02/19 00:59 Sodium Chloride (Saline Flush) 10 ml FLUSH ASDIRECTED PRN PRN Reason: Keep Vein Open Last Admin: 08/31/19 13:56 Dose: 10 ml Labs: Laboratory Tests 08/31/19 08/31/19 08/31/19 Range/Units 12:53 13:50 13:50 WBC 15.71 H (3.98-10.04) K/mm3 RBC 4.16 (3.98-5.22) M/mm3 Hgb 11.8 (11.2-15.7) gm/dl Hct 35.8 (34.1-44.9) % MCV 86.1 (79.4-94.8) fl MCH 28.4 (25.6-32.2) pg MCHC 33.0 (32.2-35.5) g/dl RDW Std Deviation 43.5 (36.4-46.3) fL Plt Count 270 (182-369) K/mm3 MPV 8.7 L (9.4-12.3) fl Neut % (Auto) 88.5 H (34.0-71.1) % Lymph % (Auto) 4.3 L (19.3-51.7) % Cobb % (Auto) 6.2 (4.7-12.5) % Eos % (Auto) 0.3 L (0.7-5.8) Baso % (Auto) 0.1 (0.1-1.2) % Neut # (Auto) 13.92 H (1.56-6.13) K/mm3 Lymph # (Auto) 0.67 L (1.18-3.74) K/mm3 Cobb # (Auto) 0.97 H (0.24-0.36) K/mm3 Eos # (Auto) 0.04 (0.04-0.36) K/mm3 Baso # (Auto) 0.02 (0.01-0.08) K/mm3 Manual Slide Review Abnormal smear Sodium (136-145) mEq/L Potassium (3.5-5.1) mEq/L Chloride (98-107) mEq/L Carbon Dioxide (21-32) mEq/L Anion Gap (5-15) BUN (7-18) mg/dL Creatinine (0.55-1.02) mg/dL Est Cr Clr Drug Dosing mL/min Estimated GFR (MDRD) (>60) mL/min BUN/Creatinine Ratio (14-18) Glucose (83-115) mg/dL POC Glucose 200 H (83-110) mg/dL Lactic Acid (0.4-2.0) mmol/L Calcium (8.5-10.1) mg/dL Total Bilirubin (0.2-1.0) mg/dL AST (15-37) U/L ALT (14-59) U/L Alkaline Phosphatase (46-116) U/L Total Protein (6.4-8.2) g/dl Albumin (3.4-5.0) g/dl Globulin gm/dL Albumin/Globulin Ratio (1-2) Lipase 36 L (73-393) U/L Urine Color (Yellow) Urine Appearance (Clear) Urine pH (5.0-8.0) Ur Specific Somers (1.005-1.030) Urine Protein (Negative) Urine Glucose (UA) (Negative) Urine Ketones (Negative) Urine Occult Blood (Negative) Urine Nitrite (Negative) Urine Bilirubin (Negative) Urine Urobilinogen (0.2-1.0) Ur Leukocyte Esterase (Negative) Urine RBC (0-5) /hpf Urine WBC (0-5) /hpf Ur Squamous Epith Cells (0-5) /hpf Urine Bacteria (FEW) /hpf Urine Mucus (FEW) /hpf 08/31/19 08/31/19 08/31/19 Range/Units 13:50 14:55 16:29 WBC (3.98-10.04) K/mm3 RBC (3.98-5.22) M/mm3 Hgb (11.2-15.7) gm/dl Hct (34.1-44.9) % MCV (79.4-94.8) fl MCH (25.6-32.2) pg MCHC (32.2-35.5) g/dl RDW Std Deviation (36.4-46.3) fL Plt Count (182-369) K/mm3 MPV (9.4-12.3) fl Neut % (Auto) (34.0-71.1) % Lymph % (Auto) (19.3-51.7) % Cobb % (Auto) (4.7-12.5) % Eos % (Auto) (0.7-5.8) Baso % (Auto) (0.1-1.2) % Neut # (Auto) (1.56-6.13) K/mm3 Lymph # (Auto) (1.18-3.74) K/mm3 Cobb # (Auto) (0.24-0.36) K/mm3 Eos # (Auto) (0.04-0.36) K/mm3 Baso # (Auto) (0.01-0.08) K/mm3 Manual Slide Review Sodium 135 L (136-145) mEq/L Potassium 3.3 L (3.5-5.1) mEq/L Chloride 99 (98-107) mEq/L Carbon Dioxide 28 (21-32) mEq/L Anion Gap 11.3 (5-15) BUN 10 (7-18) mg/dL Creatinine 1.1 H (0.55-1.02) mg/dL Est Cr Clr Drug Dosing 36.02 mL/min Estimated GFR (MDRD) 49 (>60) mL/min BUN/Creatinine Ratio 9.1 L (14-18) Glucose 184 H (83-115) mg/dL POC Glucose (83-110) mg/dL Lactic Acid 2.3 H* (0.4-2.0) mmol/L Calcium 8.9 (8.5-10.1) mg/dL Total Bilirubin 1.0 (0.2-1.0) mg/dL AST 47 H (15-37) U/L ALT 54 (14-59) U/L Alkaline Phosphatase 97 (46-116) U/L Total Protein 8.2 (6.4-8.2) g/dl Albumin 3.5 (3.4-5.0) g/dl Globulin 4.7 gm/dL Albumin/Globulin Ratio 0.7 L (1-2) Lipase (73-393) U/L Urine Color Light yellow (Yellow) Urine Appearance Clear (Clear) Urine pH 7.5 (5.0-8.0) Ur Specific Somers 1.015 (1.005-1.030) Urine Protein 2+ H (Negative) Urine Glucose (UA) Negative (Negative) Urine Ketones Negative (Negative) Urine Occult Blood 1+ H (Negative) Urine Nitrite Negative (Negative) Urine Bilirubin Negative (Negative) Urine Urobilinogen 0.2 (0.2-1.0) Ur Leukocyte Esterase Trace H (Negative) Urine RBC 0-5 (0-5) /hpf Urine WBC 10-20 H (0-5) /hpf Ur Squamous Epith Cells 0-5 (0-5) /hpf Urine Bacteria Moderate H (FEW) /hpf Urine Mucus Not seen (FEW) /hpf 08/31/19 Range/Units 18:31 WBC (3.98-10.04) K/mm3 RBC (3.98-5.22) M/mm3 Hgb (11.2-15.7) gm/dl Hct (34.1-44.9) % MCV (79.4-94.8) fl MCH (25.6-32.2) pg MCHC (32.2-35.5) g/dl RDW Std Deviation (36.4-46.3) fL Plt Count (182-369) K/mm3 MPV (9.4-12.3) fl Neut % (Auto) (34.0-71.1) % Lymph % (Auto) (19.3-51.7) % Cobb % (Auto) (4.7-12.5) % Eos % (Auto) (0.7-5.8) Baso % (Auto) (0.1-1.2) % Neut # (Auto) (1.56-6.13) K/mm3 Lymph # (Auto) (1.18-3.74) K/mm3 Cobb # (Auto) (0.24-0.36) K/mm3 Eos # (Auto) (0.04-0.36) K/mm3 Baso # (Auto) (0.01-0.08) K/mm3 Manual Slide Review Sodium (136-145) mEq/L Potassium (3.5-5.1) mEq/L Chloride (98-107) mEq/L Carbon Dioxide (21-32) mEq/L Anion Gap (5-15) BUN (7-18) mg/dL Creatinine (0.55-1.02) mg/dL Est Cr Clr Drug Dosing mL/min Estimated GFR (MDRD) (>60) mL/min BUN/Creatinine Ratio (14-18) Glucose (83-115) mg/dL POC Glucose 256 H (83-110) mg/dL Lactic Acid (0.4-2.0) mmol/L Calcium (8.5-10.1) mg/dL Total Bilirubin (0.2-1.0) mg/dL AST (15-37) U/L ALT (14-59) U/L Alkaline Phosphatase (46-116) U/L Total Protein (6.4-8.2) g/dl Albumin (3.4-5.0) g/dl Globulin gm/dL Albumin/Globulin Ratio (1-2) Lipase (73-393) U/L Urine Color (Yellow) Urine Appearance (Clear) Urine pH (5.0-8.0) Ur Specific Somers (1.005-1.030) Urine Protein (Negative) Urine Glucose (UA) (Negative) Urine Ketones (Negative) Urine Occult Blood (Negative) Urine Nitrite (Negative) Urine Bilirubin (Negative) Urine Urobilinogen (0.2-1.0) Ur Leukocyte Esterase (Negative) Urine RBC (0-5) /hpf Urine WBC (0-5) /hpf Ur Squamous Epith Cells (0-5) /hpf Urine Bacteria (FEW) /hpf Urine Mucus (FEW) /hpf Meds: Medications Generic Name Dose Route Start Last Admin Trade Name Freq PRN Reason Stop Dose Admin Sodium Chloride 1,000 mls @ 999 mls/hr 08/31/19 13:15 08/31/19 13:56 Normal Saline IV 999 mls/hr ASDIRECTED DANETTE Administration Sodium Chloride 100 mls @ 60 mls/hr 08/31/19 16:00 08/31/19 16:08 Normal Saline IV 60 mls/hr ASDIRECTED DANETTE Administration Ceftriaxone Sodium 2 gm/ 100 mls @ 200 mls/hr 08/31/19 17:30 08/31/19 18:17 Sodium Chloride IV 200 mls/hr Q24H DANETTE Administration Sodium Chloride 1,000 mls @ 150 mls/hr 08/31/19 17:30 08/31/19 18:17 Normal Saline IV 150 mls/hr ASDIRECTED DANETTE Administration Lactated Ringer's 1,000 mls @ 200 mls/hr 08/31/19 20:00 Ringers, Lactated IV 09/02/19 00:59 ASDIRECTED DANETTE Sodium Chloride 10 ml 08/31/19 13:15 08/31/19 13:56 Saline Flush FLUSH 10 ml ASDIRECTED PRN Administration Keep Vein Open Discontinued Medications Generic Name Dose Route Start Last Admin Trade Name Freq PRN Reason Stop Dose Admin Sodium Chloride 1,000 mls @ 999 mls/hr 08/31/19 16:00 Normal Saline IV ASDIRECTED DANETTE Iopamidol 100 ml 08/31/19 15:53 08/31/19 16:08 Isovue-300 (61%) IVPUSH 08/31/19 15:54 100 ml ONETIME ONE Administration Ondansetron HCl 4 mg 08/31/19 13:13 08/31/19 13:56 Zofran IVPUSH 08/31/19 13:14 4 mg ONETIME ONE Administration Ondansetron HCl 4 mg 08/31/19 15:46 08/31/19 16:13 Zofran IVPUSH 08/31/19 15:47 4 mg ONETIME ONE Administration Sodium Chloride 10 ml 08/31/19 15:53 08/31/19 16:09 Saline Flush FLUSH 08/31/19 15:54 10 ml ONETIME ONE Administration - Re-Assessments/Exams Free Text/Narrative Re-Assessment/Exam: 08/31/19 15:56 Patient's lab results were significant for WBCs elevated at 15.71 with a positive left shift. Lactic acid is also elevated at 2.3. Patient continues to have no abdominal tenderness, however does continue to be nauseated and vomiting. I have ordered another 1 L bolus of normal saline as well as another dose of Zofran. Dr. Dinh did also examine the patient and feels that at this point we should proceed with the abdomen pelvis CT to rule out a source of infection. CT ordered without oral contrast as patient will not be able tolerate that at this time. 08/31/19 1605 Nursing staff notified this provider that the patient's clean-catch urine was contaminated with stool. Nursing will straight catheter the patient for a urine specimen after she returns from her CT. 08/31/19 17:37 CT of abdomen pelvis shows "mild areas of diminished perfusion within the lower pole and upper pole of the left kidney. Findings raise the possibility of pyelonephritis ". Urinalysis by straight catheter shows trace leukocyte esterase 10-20 WBCs and moderate bacteria. Based on these results we will treat the patient for pyelonephritis. Blood cultures have been ordered. Once these are completely we'll administer Rocephin 2 g. The patient does verbalize at her nausea has improved after the second dose of Zofran. We'll also start maintenance fluids of NS at 150 ml/hr. I have contacted the hospitalist for admission and she will come see her in the emergency department. 08/31/[address] Mauro was here to see the patient. She will be admitted as an inpatient to medical surgical floor for pyelonephritis. Departure - Departure Time of Disposition: 19:45 Disposition: Admitted As Inpatient 67 Condition: Fair Clinical Impression: Pyelonephritis of left kidney - Discharge Information - My Orders Last 24 Hours: My Active Orders 08/31/19 13:15 Sodium Chloride 0.9% [Normal Saline] 1,000 ml IV ASDIRECTED Sodium Chloride 0.9% [Saline Flush] 10 ml FLUSH ASDIRECTED PRN Peripheral IV Insertion Adult [OM.PC] Stat 08/31/19 13:28 Abdomen 1V Flat [CR] Stat 08/31/19 16:00 Sodium Chloride 0.9% [Normal Saline] 100 ml IV ASDIRECTED 08/31/19 17:30 Sodium Chloride 0.9% [Normal Saline] 1,000 ml IV ASDIRECTED cefTRIAXone [Rocephin] 2 gm Sodium Chloride 0.9% [Normal Saline] 100 ml IV Q24H 08/31/19 17:35 Blood Culture x2 Reflex Set [OM.PC] Stat 08/31/19 17:58 CULTURE BLOOD [BC] Stat 08/31/19 18:09 CULTURE BLOOD [BC] Stat 08/31/19 19:53 Patient Status [ADT] Routine - Assessment/Plan Last 24 Hours: My Active Orders 08/31/19 13:15 Sodium Chloride 0.9% [Normal Saline] 1,000 ml IV ASDIRECTED Sodium Chloride 0.9% [Saline Flush] 10 ml FLUSH ASDIRECTED PRN Peripheral IV Insertion Adult [OM.PC] Stat 08/31/19 13:28 Abdomen 1V Flat [CR] Stat 08/31/19 16:00 Sodium Chloride 0.9% [Normal Saline] 100 ml IV ASDIRECTED 08/31/19 17:30 Sodium Chloride 0.9% [Normal Saline] 1,000 ml IV ASDIRECTED cefTRIAXone [Rocephin] 2 gm Sodium Chloride 0.9% [Normal Saline] 100 ml IV Q24H 08/31/19 17:35 Blood Culture x2 Reflex Set [OM.PC] Stat 08/31/19 17:58 CULTURE BLOOD [BC] Stat 08/31/19 18:09 CULTURE BLOOD [BC] Stat 08/31/19 19:53 Patient Status [ADT] Routine
[2019-08-31] MEDS: Sodium Chloride 0.9% 10 ML Syringe FLUSH PRN (13:56)
[2019-08-31] MEDS ORDERED: Iopamidol 612 MG/ML 100 ML Bottle IVPUSH ONE (15:53)
[2019-08-31] MEDS ORDERED: Sodium Chloride 0.9% 10 ML Syringe FLUSH ONE (15:53)
[2019-08-31] MEDS ORDERED: Sodium Chloride 0.9% 100 ML IV SCH (16:00)
--- NOTE | 2019-08-31 16:44 | CT ---
CT abdomen and pelvis Technique: Multiple axial sections were obtained from above the dome of the diaphragm inferiorly through the pubic symphysis. Intravenous contrast was utilized. No oral contrast has been given. Comparison: No prior abdominal imaging. Findings: Visualized lung bases show nothing acute. Liver shows fatty infiltration without focal abnormality. Spleen appears within normal limits. Adrenal glands show no nodule. Kidneys show symmetric contrast enhancement without hydronephrosis. Vague area of diminished perfusion is noted within the inferior left kidney. Difficult to exclude pyelonephritis. There may be a second area of diminished perfusion within the upper pole of the left kidney. Pancreas shows fatty replacement without other discrete abnormality. Gallbladder contains no calcified gallstones. Diffuse atherosclerotic calcification is seen within the aorta and iliac vessels. No aneurysm is seen. Appendix is seen which is normal. No retroperitoneal adenopathy or mesenteric abnormalities are seen. No pelvic mass or adenopathy is seen. No free fluid or inflammatory change is seen. Bone window settings were reviewed which appear within normal limits for the patient's age. Impression: 1. Mild areas of diminished perfusion within the lower pole and upper pole of the left kidney. Findings raise the possibility of pyelonephritis. 2. Fatty infiltration within the liver and other findings believed to be incidental. 3. No other acute abnormality is appreciated. Diagnostic code #3 This report was dictated in [place] Standard Time
[2019-08-31] MEDS: cefTRIAXone 2 GM in Sodium Chloride 0.9% 100 ML IV SCH (18:17)
[2019-08-31] MEDS ORDERED: Lactated Ringers 1,000 ML IV SCH ×2 (20:00→22:15)
--- NOTE | 2019-08-31 20:17 | PCM.HP.2 ---
H&P History of Present Illness - General Date of Service: 08/31/19 Admit Problem/Dx: Admission Diagnosis/Problem Admission Diagnosis/Problem Pyelonephritis - History of Present Illness Initial Comments - Free Text/Narative: This is a 74 year-old female with past medical history of diabetes, hypertension and hypothyroidism who came to the ED for vomiting x 2. As per patient she woke up around 2 AM and started having nausea x 1, bile and food content without blood associated with chills. She thought she was having an episode of hypoglycemia for which she measured her glucose which was 300 at the time. She went back to bed and fell asleep. She woke up at 8AM and had more episodes of vomiting, x4-5 episodes of biliary content; after this daughter decided to bring her to the ED for further evaluation. She does endorse increased urinary frequency, urgency and incontinence in the past couple of weeks. She denies any abdominal pain, diarrhea, fevers, painful or burning urination. - Related Data Allergies/Adverse Reactions: Allergies Allergy/AdvReac Type Severity Reaction Status Date / Time dust Allergy Other Uncoded 08/31/19 21:37 evergreen trees Allergy Other Uncoded 08/31/19 21:38 Home Medications: Home Meds Levothyroxine [Synthroid] 50 mcg PO DAILY 02/03/17 [History] Losartan Potassium [Cozaar] 100 mg PO DAILY 02/03/17 [History] Simvastatin [Zocor] 20 mg PO BEDTIME 02/03/17 [History] amLODIPine [Norvasc] 5 mg PO DAILY 02/03/17 [History] Acetaminophen [Tylenol] 650 mg PO Q4H PRN #60 tablet 05/28/17 [Rx] Acetaminophen/HYDROcodone [[place] 325-5 MG] 1 tab PO Q4H PRN #40 tablet 05/28/17 [Rx] Alum Hydrox/Mag Hydrox/Simeth [Mag-Al Plus] 30 ml PO Q4H PRN #0 cup 05/28/17 [Rx ] Bisacodyl [Dulcolax] 5 mg PO DAILY PRN tablet 05/28/17 [Rx] Bisacodyl [Dulcolax] 10 mg RECTAL DAILY PRN supp 05/28/17 [Rx] Docusate Sodium/Sennosides [Senna Plus] 1 tab PO BID PRN #60 tablet 05/28/17 [Rx ] Insulin Aspart [NovoLOG] See Protocol SUBCUT TIDAC 09/17/18 [History] Potassium Chloride 20 meq PO DAILY 09/17/18 [History] Insulin Detemir [Levemir] 37 unit SUBCUT BEDTIME 08/31/19 [History] Past Medical History HEENT History: Reports: Cataract, Impaired Vision Other HEENT History: wears eyeglasses, strep throat Cardiovascular History: Reports: High Cholesterol, Hypertension Gastrointestinal History: Reports: Chronic Constipation Genitourinary History: Reports: UTI, Recurrent 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 - Past Surgical History HEENT Surgical History: Reports: Cataract Surgery, Tonsillectomy GI Surgical History: Reports: None Social & Family History - Family History Family Medical History: Noncontributory - Tobacco Use Smoking Status *Q: Never Smoker - Caffeine Use Caffeine Use: Reports: Soda, Tea Other Caffeine Use: regular soda - Living Situation & Occupation Living situation: Reports: Occupation: Disabled H&P Review of Systems - Review of Systems: Review Of Systems: See Below General: Reports: Chills, Weakness, Fatigue, Decreased Appetite. Denies: Malaise, Night Sweats, Diaphoresis, Weight Loss, Weight Gain HEENT: Denies: Contact Lenses, Dysphasia, Ear Pain, Eye Pain, Glasses, Headaches , Hearing Changes, Rhinitis, Post Nasal Drip, Sinus Congestion, Sore Throat, Vertigo, Visual Changes Pulmonary: Denies: Shortness of Breath, Wheezing, Pleuritic Chest Pain, Cough, Sputum Cardiovascular: Reports: Lightheadedness. Denies: Chest Pain, Palpitations, Dyspnea on Exertion, Orthopnea, PND, Edema, Syncope, Claudication Gastrointestinal: Reports: Constipation, Decreased Appetite, Nausea, Vomiting. Denies: Abdominal Pain, Anorexia, Black Stool, Bloody Stool, Diarrhea, Difficulty Swallowing, Distension, Flatus, Hematemesis, Hematochezia, Melena Genitourinary: Reports: Frequency, Urgency, Incontinence. Denies: Dysuria, Burning, Pain, Hematuria, Retention, Discharge Musculoskeletal: Denies: Joint Pain, Joint Swelling, Muscle Pain, Muscle Stiffness Skin: Denies: Cyanosis, Jaundice, Mottled, Pallor, Diaphoresis Psychiatric: Denies: Confusion, Depression, Mood Lability, Anxiety, Agitation Neurological: Reports: Dizziness. Denies: Confusion, Headache, Numbness, Paresthesia, Seizure, Syncope, Tingling, Tremors Exam - Exam Exam: See Below - Vital Signs Vital Signs: Last Vital Signs Temp 98.9 F 08/31/19 12:54 Pulse 114 H 08/31/19 12:54 Resp 16 08/31/19 12:54 BP 121/96 H 08/31/19 12:54 Pulse Ox 95 08/31/19 12:54 Weight: 88.451 kg - Exam Quality Assessment: No: Supplemental Oxygen, Central Line/PICC, Urinary Catheter , DVT Prophylaxis General: Alert, Oriented, Cooperative. No: Mild Distress HEENT: Conjunctiva Clear, EACs Clear, EOMI, Mucosa Moist & [place] (pink but dry), Nares Patent, Normal Nasal Septum Neck: Supple, Trachea Midline, +2 Carotid Pulse wo Bruit, Full Range of Motion. No: Lymphadenopathy Lungs: Clear to Auscultation, Normal Respiratory Effort. No: Crackles, Rales, Rhonchi, Rub, Wheezing Cardiovascular: Regular Rate, Regular Rhythm. No: Systolic Murmur, Diastolic Murmur, Rubs, Gallop/S3, Gallop/S4 GI/Abdominal Exam: Normal Bowel Sounds, Soft, Non-Tender, No Organomegaly. No: Distended, Guarding, Rigid, Rebound Back Exam: Normal Inspection. No: CVA Tenderness (L), CVA Tenderness (R), Paraspinal Tenderness Extremities: Normal Inspection (old r ankle fracture with forced eversion) Neuro Extensive - Mental Status: Alert, Oriented x3, Normal Mood/Affect Psychiatric: Alert, Normal Affect, Normal Mood - Patient Data Result Diagrams: 08/31/19 13:50 08/31/19 13:50 - Problem List (1) Pyelonephritis SNOMED Code(s): 94917091 ICD Code: N12 - TUBULO-INTERSTITIAL NEPHRITIS, NOT SPCF ACUTE OR CHRONIC Status: Acute Current Visit: Yes (2) Hypertension SNOMED Code(s): 87311408 ICD Code: I10 - ESSENTIAL (PRIMARY) HYPERTENSION Status: Acute Current Visit: Yes (3) Dyslipidemia SNOMED Code(s): 997302516 ICD Code: E78.5 - HYPERLIPIDEMIA, UNSPECIFIED Status: Acute Current Visit : Yes (4) Hypothyroidism SNOMED Code(s): 74003657 ICD Code: E03.9 - HYPOTHYROIDISM, UNSPECIFIED Status: Acute Current Visit : Yes (5) Leukocytosis SNOMED Code(s): 074201606, 071177129 ICD Code: D72.829 - ELEVATED WHITE BLOOD CELL COUNT, UNSPECIFIED Status: Acute Current Visit: Yes (6) Recurrent falls while walking SNOMED Code(s): 824914990, 568816463 ICD Code: R29.6 - REPEATED FALLS Status: Acute Current Visit: Yes (7) Vitamin D deficiency SNOMED Code(s): 09686479 ICD Code: E55.9 - VITAMIN D DEFICIENCY, UNSPECIFIED Status: Acute Current Visit: Yes (8) Tachycardia SNOMED Code(s): 9660786 ICD Code: R00.0 - TACHYCARDIA, UNSPECIFIED Status: Acute Current Visit: Yes (9) Diabetes mellitus SNOMED Code(s): 17951240 ICD Code: E11.9 - TYPE 2 DIABETES MELLITUS WITHOUT COMPLICATIONS Status: Chronic Priority: High Current Visit: No Qualifiers: Diabetes mellitus type: type 2 Diabetes mellitus intermission coordinator insulin use: with intermission coordinator use Diabetes mellitus complication status: with skin complications Diabetes mellitus complication detail: with foot ulcer Qualified Code(s): E11.621 - Type 2 diabetes mellitus with foot ulcer; L97.509 - Non-pressure chronic ulcer of other part of unspecified foot with unspecified severity; Z79.4 - skilled nursing (current) use of insulin (10) Peripheral vascular disease SNOMED Code(s): 147160049 ICD Code: I73.9 - PERIPHERAL VASCULAR DISEASE, UNSPECIFIED Status: Chronic Priority: High Current Visit: No (11) Nausea & vomiting SNOMED Code(s): 30594442 ICD Code: R11.2 - NAUSEA WITH VOMITING, UNSPECIFIED Status: Resolved Priority: High Current Visit: No Qualifiers: Vomiting type: unspecified Vomiting Intractability: non-intractable Qualified Code(s): R11.2 - Nausea with vomiting, unspecified (12) Hyponatremia SNOMED Code(s): 95209544 ICD Code: E87.1 - HYPO-OSMOLALITY AND HYPONATREMIA Status: Acute Current Visit: Yes (13) Hypokalemia SNOMED Code(s): 61779797 ICD Code: E87.6 - HYPOKALEMIA Status: Resolved Priority: High Current Visit: No (14) History of ankle fracture SNOMED Code(s): 738152090 ICD Code: Z87.81 - PERSONAL HISTORY OF (HEALED) TRAUMATIC FRACTURE Status: Acute Current Visit: Yes (15) Chronic kidney disease (CKD), stage III (moderate) SNOMED Code(s): 519396524 ICD Code: N18.3 - CHRONIC KIDNEY DISEASE, STAGE 3 (MODERATE) Status: Acute Current Visit: Yes Problem List Initiated/Reviewed/Updated: Yes Assessment/Plan Comment:: Sepsis 2/2 Pyelonephritis Nausea & vomiting Leukocytosis Tachycardia 2 UTI in the past year CT with changes in perinephric region, concern for pyelo LActic acid elevated on admission Given IVF Previous urine culture here from 2013 with pansensitive E. coli PLAN - Start Rocephin QD - F/U cultures - Trend Lactic acid and continue IVF until negative - Continue LR at 250ml x 2 bags - TRend temperature and panculture if febrile Chronic Kidney disease, Stage 3B Hyponatremia Hypokalemia Likely 2/2 GI loss Will replace via IV PLAN - Replace electrolytes - Renally dosed medication - Avoid nephrotoxic agents - Monitor urine output - Daily labs as needed Diabetes mellitus, unknown HbA1c Peripheral vascular disease Home pre-meals trend between 110-120 Doesn't measure post-prandials Glucose on admission >200 PLAN - New HbA1c - Moderate sensitivity sliding scale insulin - Hypoglycemia protocol - Scheduled accu-checks TID AC and HS - Diabetic diet - Diabetic education Hypertension BP on admission 121/96 No home trend available PLAN - Hold home meds for now Dyslipidemia No acute issues PLAN - Restart home meds once patient is taking PO Hypothyroidism No acute issues PLAN - Restart home meds once patient is taking PO Recurrent falls while walking History of ankle fracture PCP was working on 4 wheel walker but this has been going on for a while so patient is unsure of whether it is still happening Previous fracture of R ankle with forced eversion Has been falling more due to weakness PLAN - PT/OT evaluation - CM and SS on board Vitamin D deficiency Weekly replacement as an outpatient PROPHYLAXIS DVT- Adyx GI- not indicated CODE STATUS: FULL CODE DISPOSITION: Patient will be admitted to the medical floor for IV antibiotics, hemodynamic monitorization and stabilization. PT and OT evaluation pending, will follow recommendations once available. Case management and social work aware of case. Patient currently lives with daughter and uses a cane for ambulation for the past 6 years, is dependent on all IADLs except for cooking, completely independent on ADLs. MiniCOG 3/3. Never smoker or drinker
[2019-08-31] MEDS ORDERED: 50% Dextrose in Water 50 ML Syringe IVPUSH PRN (20:47)
[2019-08-31] MEDS ORDERED: Morphine 2 MG/ML Syringe IVPUSH PRN (20:54)
[2019-08-31] MEDS ORDERED: Acetaminophen 325 MG Tab PO PRN (20:54)
[2019-08-31] MEDS ORDERED: Acetaminophen/Codeine 300-30 MG Tab PO PRN (20:59)
[2019-08-31] MEDS ORDERED: Insulin Glarg,Human.Rec.Analog 100 UNIT/ML ML SUBCUT SCH (21:00)
[2019-08-31] MEDS ORDERED: Ondansetron 4 MG Tab.DIS PO PRN (21:15)
[2019-08-31] MEDS ORDERED: Potassium Chloride 10 MEQ in Premix Bag 1 BAG IV SCH ×4 (22:30)
[2019-08-31] MEDS: Insulin Lispro 100 Units/ML 3 ML Vial SUBCUT SCH (22:43)
[2019-08-31] MEDS ORDERED: Potassium Chloride 10 MEQ in Premix Bag 1 BAG IV ONE (23:00)
[2019-09-01] MEDS ORDERED: Lactated Ringers 1,000 ML IV SCH ×2 (00:15→08:15)
[2019-09-01] MEDS ORDERED: Potassium Chloride 10 MEQ in Premix Bag 1 BAG IV ONE ×4 (01:00→02:00)
[2019-09-01] MEDS ORDERED: Lactated Ringers 500 ML IV ONE (05:41)
[2019-09-01] MEDS ORDERED: Insulin Lispro 100 Units/ML 3 ML Vial SUBCUT SCH (06:00)
[2019-09-01] MEDS ORDERED: Furosemide 40 MG/4 ML VIAL IVPUSH ONE (08:09)
[2019-09-01] MEDS ORDERED: Furosemide 40 MG/4 ML VIAL ONE (08:10)
--- NOTE | 2019-09-01 08:46 | CR ---
Chest: Portable view of the chest was obtained. Comparison: Prior chest x-ray of 05/23/17. Diffuse increased lung markings are seen as an interval change from previous exam. Diffuse increased lung markings are seen having the appearance of pulmonary vascular congestion with early interstitial edema. Heart size appears slightly generous. Tortuous thoracic aorta is seen. Impression: 1. Findings suspicious for interstitial pulmonary edema. Diagnostic code #3 This report was dictated in [place] Standard Time
[2019-09-01] MEDS ORDERED: Enoxaparin 30 MG/0.3 ML Syringe SUBCUT SCH (09:00)
[2019-09-01] MEDS: Enoxaparin 40 MG/0.4 ML Syringe SUBCUT SCH (10:22)
[2019-09-01] MEDS: Insulin Lispro 100 Units/ML 3 ML Vial SUBCUT SCH ×4 (11:02→21:19)
[2019-09-01] MEDS ORDERED: Sodium Chloride 0.9% 10 ML Syringe FLUSH PRN (11:11)
[2019-09-01] MEDS ORDERED: Iopamidol 755 Mg/ML 100 ML Bottle IVPUSH ONE (11:11)
[2019-09-01] MEDS ORDERED: Sodium Chloride 0.9% 100 ML IV SCH (11:15)
[2019-09-01] MEDS: Sodium Chloride 0.9% 10 ML Syringe FLUSH PRN (12:26)
--- NOTE | 2019-09-01 13:08 | PCM.SN ---
- Free Text/Narrative Note: Nursing called rapid response to Lea's room this AM due to acute dyspnea with oxygen saturations noted to be very low. Upon arrival at the room patient noted to have saturations in the 70s. She was to tachypneic and tachycardic with pursed lip breathing and audible respiratory distress. Twelve-lead EKG was obtained showing sinus tachycardia with no acute signs of ischemia. BP 251/51. ABG obtained showing a pH of 7.31, PCO2 of 43.2, PO2 of 76, HCO3 of 21.2. Lung sounds revealed crackles but no wheezes. Patient denied any chest pain but did report that she has been getting progressively more short of breath throughout the morning. Denied any other pain. Prior to arrival nursing had applied a nasal cannula. This was switched to a nonrebreather at 15 L. Lab is in to draw CBC, CMP, troponin, d-dimer. Chest x-ray obtained shows diffuse pulmonary congestion. Patient had been receiving aggressive fluid rehydration due to prior sepsis diagnosis. IV fluids were slowed and 40 mg IV push Lasix given. Patient placed on BiPAP with good response. She reported that her shortness of breath had greatly improved while on BiPAP. Labs returned remarkable with a WBC of 12.42, which is improved over admission. Hemoglobin has dropped to 10.9. D-dimer is elevated at 2.06. Sodium was low at 134. Anion gap is high at 18.7. Creatinine is 1.3. Glucose 358. Troponin is negative at less than 0.017. CTA is ordered. Echo was also ordered. Patient is upgraded to ICU status and transferred to room 24. Repeat ABG is within normal limits with a pH of 7.38, PCO2 of 40.1, PO2 of 88, HCO3 of 23.2. This is obtained while on BiPAP at 12/6. Patient responds well to treatment.
--- NOTE | 2019-09-01 13:42 | CT ---
CT chest Technique: Multiple axial sections through the chest were obtained. Intravenous contrast was utilized. Study performed as a pulmonary angiogram protocol. Findings: Pulmonary arteries are well-opacified. No filling defects are seen within the pulmonary arteries to indicate pulmonary embolism. Small right-sided pleural effusion and trace left-sided pleural effusion is noted. Parenchymal densities are noted within both posterior lungs with lesser change seen within both upper lungs. Heart size appears within normal limits. Coronary artery calcification is seen. Aorta shows atherosclerotic calcification without aneurysm. Small scattered mediastinal lymph nodes are seen which are believed to be within normal limits. No axillary adenopathy is identified. Bone window settings were reviewed which show no acute osseous abnormality. Impression: 1. Small right-sided pleural effusion and trace left-sided pleural effusion. 2. Increased parenchymal change within both lung bases as well as within both upper lungs. Most of the change appears to be due to pulmonary edema. Difficult to exclude superimposed bibasilar areas of pneumonia. 3. Other findings which are felt to be incidental and not acute. 4. No findings of pulmonary embolism. Diagnostic code #3 This report was dictated in [place] Standard Time
--- NOTE | 2019-09-01 16:53 | PCM.PN ---
- General Info Date of Service: 09/01/19 Subjective Update: Acute episode of SOB at 730AM that requires patient be placed on BiPAP and transferred to ICU. No other events overnight - Patient Data Weight - Most Recent: 88.314 kg - Exam Quality Assessment: Supplemental Oxygen, DVT Prophylaxis General: Alert, Oriented, Cooperative, No Acute Distress HEENT: Pupils Equal, Pupils Reactive, EOMI, Mucous Membr. Moist/[place] Neck: Supple, Trachea Midline, No JVD Lungs: Clear to Auscultation, Decreased Breath Sounds, Crackles. No: Rales, Rhonchi, Wheezing Cardiovascular: Regular Rate, Regular Rhythm. No: Murmurs, Gallops, Rubs GI/Abdominal Exam: Normal Bowel Sounds, Soft, Non-Tender. No: Distended, Guarding, Rigid Back Exam: Normal Inspection Extremities: Normal Inspection, Slow Capillary Refill Neurological: No New Focal Deficit Psy/Mental Status: Alert - Problem List & Annotations (1) Pyelonephritis SNOMED Code(s): 30022775 Code(s): N12 - TUBULO-INTERSTITIAL NEPHRITIS, NOT SPCF ACUTE OR CHRONIC Status: Acute Current Visit: Yes (2) Hypertension SNOMED Code(s): 79810454 Code(s): I10 - ESSENTIAL (PRIMARY) HYPERTENSION Status: Acute Current Visit: Yes (3) Dyslipidemia SNOMED Code(s): 377507920 Code(s): E78.5 - HYPERLIPIDEMIA, UNSPECIFIED Status: Acute Current Visit : Yes (4) Hypothyroidism SNOMED Code(s): 35432414 Code(s): E03.9 - HYPOTHYROIDISM, UNSPECIFIED Status: Acute Current Visit : Yes (5) Leukocytosis SNOMED Code(s): 147272693, 604795866 Code(s): D72.829 - ELEVATED WHITE BLOOD CELL COUNT, UNSPECIFIED Status: Acute Current Visit: Yes (6) Recurrent falls while walking SNOMED Code(s): 489623951, 905793490 Code(s): R29.6 - REPEATED FALLS Status: Acute Current Visit: Yes (7) Vitamin D deficiency SNOMED Code(s): 29811657 Code(s): E55.9 - VITAMIN D DEFICIENCY, UNSPECIFIED Status: Acute Current Visit: Yes (8) Tachycardia SNOMED Code(s): 0480543 Code(s): R00.0 - TACHYCARDIA, UNSPECIFIED Status: Acute Current Visit: Yes (9) Diabetes mellitus SNOMED Code(s): 69004908 Code(s): E11.9 - TYPE 2 DIABETES MELLITUS WITHOUT COMPLICATIONS Status: Chronic Priority: High Current Visit: No Qualifiers: Diabetes mellitus type: type 2 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 insulin use: with retirement use Diabetes mellitus complication status: with skin complications Diabetes mellitus complication detail: with foot ulcer Qualified Code(s): E11.621 - Type 2 diabetes mellitus with foot ulcer; L97.509 - Non-pressure chronic ulcer of other part of unspecified foot with unspecified severity; Z79.4 - prison (current) use of insulin (10) Peripheral vascular disease SNOMED Code(s): 347664752 Code(s): I73.9 - PERIPHERAL VASCULAR DISEASE, UNSPECIFIED Status: Chronic Priority: High Current Visit: No (11) Hyponatremia SNOMED Code(s): 38127243 Code(s): E87.1 - HYPO-OSMOLALITY AND HYPONATREMIA Status: Acute Current Visit: Yes (12) History of ankle fracture SNOMED Code(s): 099749212 Code(s): Z87.81 - PERSONAL HISTORY OF (HEALED) TRAUMATIC FRACTURE Status: Acute Current Visit: Yes (13) Chronic kidney disease (CKD), stage III (moderate) SNOMED Code(s): 861052220 Code(s): N18.3 - CHRONIC KIDNEY DISEASE, STAGE 3 (MODERATE) Status: Acute Current Visit: Yes (14) Acute hypoxemic respiratory failure SNOMED Code(s): 044813304 Code(s): J96.01 - ACUTE RESPIRATORY FAILURE WITH HYPOXIA Status: Acute Current Visit: Yes - Problem List Review Problem List Initiated/Reviewed/Updated: Yes - Plan Plan:: Acute hipoxemic respiratory failure Pulmonary edema Episode of SOB with hypoxemia requiring BIPAP at 730AM today Likely 2/2 volume repletion Transferred to ICU Tolerated BiPAP well Improved with Lasix PLAN - Will continue BiPAP for now and taper as tolerated - Monitor urine output - Monitor oxygenation - Keep in ICU for now Sepsis 2/2 Pyelonephritis Nausea & vomiting Leukocytosis Tachycardia 2 UTI in the past year CT with changes in perinephric region, concern for pyelo Lactic acid elevated on admission--> normal now Given IVF Previous urine culture here from 2013 with pansensitive E. coli Tmax 98.4 PLAN - Continue Rocephin QD, day 2 - F/U cultures - Trend temperature and panculture if febrile Chronic Kidney disease, Stage 3B Likely 2/2 GI loss Will replace via IV PLAN - Replace electrolytes - Renally dosed medication - Avoid nephrotoxic agents - Monitor urine output - Daily labs as needed Diabetes mellitus, [id number]( this admission) Peripheral vascular disease Home pre-meals trend between 110-120 Glucose trend: 261-317, requiring 12 corrective units Basal 30 PLAN - Moderate sensitivity sliding scale insulin - Hypoglycemia protocol - Scheduled accu-checks TID AC and HS - Diabetic diet - Diabetic education Hypertension BP trend 100-131/51-114 No home trend available PLAN - Hold home meds for now Dyslipidemia No acute issues PLAN - Restart home meds Hypothyroidism No acute issues PLAN - Restart home meds on Recurrent falls while walking History of ankle fracture PCP was working on 4 wheel walker but this has been going on for a while so patient is unsure of whether it is still happening Previous fracture of R ankle with forced eversion Has been falling more due to weakness PLAN - PT/OT evaluation - CM and SS on board Vitamin D deficiency Weekly replacement as an outpatient PROPHYLAXIS DVT- Lovenox GI- not indicated CODE STATUS: FULL CODE DISPOSITION: Patient admitted to [facility] for IVF repletion and monitorization of sepsis, acute hypoxemia today requiring ICU transfer with BiPAP placement. Will continue BiPAP for now and taper as tolerated Follow PT/OT recommendations Case management and social work aware of case. Patient currently lives with daughter and uses a cane for ambulation for the past 6 years, is dependent on all IADLs except for cooking, completely independent on ADLs. MiniCOG 3/3. Never smoker or drinker
[2019-09-01] MEDS: cefTRIAXone 2 GM in Sodium Chloride 0.9% 100 ML IV SCH (17:09)
[2019-09-01] MEDS: Insulin Glarg,Human.Rec.Analog 100 UNIT/ML ML SUBCUT SCH (21:17)
[2019-09-01] MEDS: Ondansetron 4 MG/2 ML SDV IVPUSH PRN (23:27)
[2019-09-02] MEDS: Levothyroxine 50 MCG Tab PO SCH (06:14)
[2019-09-02] MEDS: Insulin Lispro 100 Units/ML 3 ML Vial SUBCUT SCH ×4 (06:30→22:02)
[2019-09-02] MEDS: Insulin Glarg,Human.Rec.Analog 100 UNIT/ML ML SUBCUT SCH ×2 (09:23→22:02)
[2019-09-02] MEDS: Clopidogrel 75 MG Tab PO SCH (09:23)
[2019-09-02] MEDS: Enoxaparin 40 MG/0.4 ML Syringe SUBCUT SCH (09:23)
--- NOTE | 2019-09-02 09:39 | CR ---
Abdomen: Supine view of the abdomen was obtained. Comparison: No prior abdominal x-ray. Stent is noted within the left superficial femoral artery. Mild atherosclerotic calcification is seen within the arterial vessels. Bowel gas pattern is normal. Bony structures appear within normal limits. No discrete soft tissue abnormality is appreciated. Impression: 1. Findings as noted above. 2. Nothing acute is appreciated. Diagnostic code #2 This report was dictated in [place] Standard Time
[2019-09-02] MEDS ORDERED: Magnesium Sulfate/Water 4 GM in Premix Bag 1 BAG IV ONE (12:58)
[2019-09-02] MEDS ORDERED: Sodium Chloride 0.9% 250 ML IV SCH (14:15)
[2019-09-02] MEDS: Potassium Chloride 10 MEQ in Premix Bag 1 BAG IV SCH ×4 (15:37→19:22)
--- NOTE | 2019-09-02 15:49 | PCM.SN ---
- Free Text/Narrative Note: Called to placed PIV. Patient had more than 4 attempts prior to my arrival. Scanned with ultrasound and located Left proximal basilic vein. Sterile chloroprep allowed to dry. In-plane cannulation of vein with 20g 1.88 inch catheter. Good blood return. Easy flush. No complications. Routine. Secured with clear site bandage and tape. Nurse at bedside assisting.
[2019-09-02] MEDS: cefTRIAXone 2 GM in Sodium Chloride 0.9% 100 ML IV SCH (16:39)
[2019-09-02] MEDS ORDERED: Potassium Chloride 10 MEQ in Premix Bag 1 BAG IV SCH (19:30)
--- NOTE | 2019-09-03 00:38 | PCM.PN ---
- General Info Date of Service: 09/02/19 Subjective Update: Slept Well overnight with BiPAP No acute issues Tolerating diet - Patient Data Weight - Most Recent: 91.671 kg - Exam Quality Assessment: Supplemental Oxygen General: Alert, Oriented, Cooperative, No Acute Distress HEENT: Pupils Equal, Pupils Reactive, Mucous Membr. Moist/[place] Neck: Supple, Trachea Midline, No JVD Lungs: Normal Respiratory Effort. No: Crackles, Rales, Rhonchi, Wheezing Cardiovascular: Regular Rate, Regular Rhythm. No: Murmurs, Gallops, Rubs GI/Abdominal Exam: Normal Bowel Sounds, Soft, Non-Tender. No: No Organomegaly, Distended, Guarding, Rigid, Rebound, Tender Back Exam: Normal Inspection Neurological: No New Focal Deficit Psy/Mental Status: Alert, Normal Affect - Problem List & Annotations (1) Pyelonephritis SNOMED Code(s): 08279376 Code(s): N12 - TUBULO-INTERSTITIAL NEPHRITIS, NOT SPCF ACUTE OR CHRONIC Status: Acute Current Visit: Yes (2) Hypertension SNOMED Code(s): 88289465 Code(s): I10 - ESSENTIAL (PRIMARY) HYPERTENSION Status: Acute Current Visit: Yes (3) Dyslipidemia SNOMED Code(s): 491257302 Code(s): E78.5 - HYPERLIPIDEMIA, UNSPECIFIED Status: Acute Current Visit : Yes (4) Hypothyroidism SNOMED Code(s): 69291438 Code(s): E03.9 - HYPOTHYROIDISM, UNSPECIFIED Status: Acute Current Visit : Yes (5) Leukocytosis SNOMED Code(s): 262633740, 392697653 Code(s): D72.829 - ELEVATED WHITE BLOOD CELL COUNT, UNSPECIFIED Status: Acute Current Visit: Yes (6) Recurrent falls while walking SNOMED Code(s): 579658916, 341385065 Code(s): R29.6 - REPEATED FALLS Status: Acute Current Visit: Yes (7) Vitamin D deficiency SNOMED Code(s): 39383112 Code(s): E55.9 - VITAMIN D DEFICIENCY, UNSPECIFIED Status: Acute Current Visit: Yes (8) Tachycardia SNOMED Code(s): 0790347 Code(s): R00.0 - TACHYCARDIA, UNSPECIFIED Status: Acute Current Visit: Yes (9) Diabetes mellitus SNOMED Code(s): 49309979 Code(s): E11.9 - TYPE 2 DIABETES MELLITUS WITHOUT COMPLICATIONS Status: Chronic Priority: High Current Visit: No Qualifiers: Diabetes mellitus type: type 2 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 school principal insulin use: with middle or intermediate school principal use Diabetes mellitus complication status: with skin complications Diabetes mellitus complication detail: with foot ulcer Qualified Code(s): E11.621 - Type 2 diabetes mellitus with foot ulcer; L97.509 - Non-pressure chronic ulcer of other part of unspecified foot with unspecified severity; Z79.4 - [facility] (current) use of insulin (10) Peripheral vascular disease SNOMED Code(s): 719413733 Code(s): I73.9 - PERIPHERAL VASCULAR DISEASE, UNSPECIFIED Status: Chronic Priority: High Current Visit: No (11) Hyponatremia SNOMED Code(s): 02249544 Code(s): E87.1 - HYPO-OSMOLALITY AND HYPONATREMIA Status: Acute Current Visit: Yes (12) History of ankle fracture SNOMED Code(s): 577666199 Code(s): Z87.81 - PERSONAL HISTORY OF (HEALED) TRAUMATIC FRACTURE Status: Acute Current Visit: Yes (13) Chronic kidney disease (CKD), stage III (moderate) SNOMED Code(s): 784101300 Code(s): N18.3 - CHRONIC KIDNEY DISEASE, STAGE 3 (MODERATE) Status: Acute Current Visit: Yes - Problem List Review Problem List Initiated/Reviewed/Updated: Yes - Plan Plan:: Acute hipoxemic respiratory failure, improved Pulmonary edema, resolved Episode of SOB with hypoxemia requiring BIPAP 09/01--> Transferred to ICU--> Tolerated BiPAP well Improved with Lasix SatO2 trend 89-97% PLAN - Will continue BiPAP PRN - Monitor urine output - Monitor oxygenation - Downgrade to [place] Sepsis 2/2 Pyelonephritis Nausea & vomiting Leukocytosis Tachycardia 2 UTI in the past year CT with changes in perinephric region, concern for pyelo Lactic acid elevated on admission--> normal now Given IVF Previous urine culture here from 2013 with pansensitive E. coli Tmax 99.5 PLAN - Continue Rocephin QD, day 3 - F/U cultures - Trend temperature and panculture if febrile Chronic Kidney disease, Stage 3B Hypokalemia/Hypomagnesemia/Hypophosphatemia Likely 2/2 GI loss Will replace via IV PLAN - Replace electrolytes - Renally dosed medication - Avoid nephrotoxic agents - Monitor urine output - Daily labs as needed Diabetes mellitus, PsA2j-1( this admission) Peripheral vascular disease Home pre-meals trend between 110-120 Glucose trend: 201-313, requiring 11 corrective units Basal 30 PLAN - Moderate sensitivity sliding scale insulin - Hypoglycemia protocol - Scheduled accu-checks TID AC and HS - Diabetic diet - Diabetic education Hypertension BP trend 52-91/113-130 No home trend available PLAN - Hold home meds for now Dyslipidemia No acute issues PLAN - Restart home meds Hypothyroidism No acute issues PLAN - Restart home meds on Recurrent falls while walking History of ankle fracture PCP was working on 4 wheel walker but this has been going on for a while so patient is unsure of whether it is still happening Previous fracture of R ankle with forced eversion Has been falling more due to weakness PLAN - PT/OT evaluation - CM and SS on board Vitamin D deficiency Weekly replacement as an outpatient PROPHYLAXIS DVT- Lovenox GI- not indicated CODE STATUS: FULL CODE DISPOSITION: Admitted to [place] for sepsis 2/2 pyelonephritis. Upgraded to ICU on 08/02 for acute respiratory distress. Significantly improved, will downgrade. Will continue BiPAP for now and taper as tolerated Follow PT/OT recommendations Case management and social work aware of case. Patient currently lives with daughter and uses a cane for ambulation for the past 6 years, is dependent on all IADLs except for cooking, completely independent on ADLs. MiniCOG 3/. Never smoker or drinker
[2019-09-03] MEDS: Ondansetron 4 MG/2 ML SDV IVPUSH PRN (02:01)
[2019-09-03] MEDS: Levothyroxine 50 MCG Tab PO SCH (05:48)
[2019-09-03] MEDS: Insulin Lispro 100 Units/ML 3 ML Vial SUBCUT SCH ×4 (08:47→21:16)
[2019-09-03] MEDS: Enoxaparin 40 MG/0.4 ML Syringe SUBCUT SCH (08:47)
[2019-09-03] MEDS: Clopidogrel 75 MG Tab PO SCH (08:47)
--- NOTE | 2019-09-03 09:54 | PCM.PN ---
- General Info Date of Service: 09/03/19 Admission Dx/Problem (Free Text): Admission Diagnosis/Problem Admission Diagnosis/Problem Pyelonephritis Subjective Update: Lea reports she feels good today. Continues to require oxygen at 3.5L Clinically looks much better Encouraged ambulation Functional Status: Reports: Pain Controlled, Tolerating Diet, Ambulating, Urinating, Incentive Spirometry. Denies: New Symptoms - Review of Systems General: Reports: No Symptoms. Denies: Fever, Weakness, Fatigue, Malaise, Chills HEENT: Reports: No Symptoms. Denies: Headaches, Sore Throat Pulmonary: Reports: Shortness of Breath, Cough (occasional ). Denies: Wheezing Cardiovascular: Reports: Dyspnea on Exertion, Edema (improved ). Denies: Chest Pain, Palpitations Gastrointestinal: Reports: No Symptoms. Denies: Abdominal Pain, Constipation, Diarrhea, Nausea, Vomiting Genitourinary: Reports: No Symptoms. Denies: Pain Musculoskeletal: Reports: No Symptoms Skin: Reports: No Symptoms. Denies: Cyanosis Neurological: Reports: No Symptoms. Denies: Confusion, Difficulty Walking, Gait Disturbance Psychiatric: Reports: No Symptoms - Patient Data Vitals - Most Recent: Last Vital Signs Temp 99.9 F 09/03/19 05:44 Pulse 72 09/03/19 05:46 Resp 20 09/03/19 05:44 BP 131/95 H 09/03/19 05:44 Pulse Ox 90 L 09/03/19 05:46 Weight - Most Recent: 202 lb 1.6 oz I&O - Last 24 Hours: Intake & Output 09/02/19 09/03/19 09/03/19 22:59 06:59 14:59 Intake Total 850 800 Balance 850 800 Lab Results Last 24 Hours: Laboratory Results - last 24 hr 09/02/19 09/02/19 09/02/19 Range/Units 11:17 12:05 12:05 WBC 9.19 (3.98-10.04) K/mm3 RBC 3.26 L (3.98-5.22) M/mm3 Hgb 9.3 L D (11.2-15.7) gm/dl Hct 28.8 L (34.1-44.9) % MCV 88.3 (79.4-94.8) fl MCH 28.5 (25.6-32.2) pg MCHC 32.3 (32.2-35.5) g/dl RDW Std Deviation 46.4 H (36.4-46.3) fL Plt Count 203 (182-369) K/mm3 MPV 9.2 L (9.4-12.3) fl Neut % (Auto) 78.6 H (34.0-71.1) % Lymph % (Auto) 13.5 L (19.3-51.7) % Levy % (Auto) 7.0 (4.7-12.5) % Eos % (Auto) 0.7 (0.7-5.8) Baso % (Auto) 0.2 (0.1-1.2) % Neut # (Auto) 7.23 H (1.56-6.13) K/mm3 Lymph # (Auto) 1.24 (1.18-3.74) K/mm3 Levy # (Auto) 0.64 H (0.24-0.36) K/mm3 Eos # (Auto) 0.06 (0.04-0.36) K/mm3 Baso # (Auto) 0.02 (0.01-0.08) K/mm3 Manual Slide Review Normal smear Sodium 134 L (136-145) mEq/L Potassium 3.3 L (3.5-5.1) mEq/L Chloride 98 (98-107) mEq/L Carbon Dioxide 29 (21-32) mEq/L Anion Gap 10.3 (5-15) BUN 15 (7-18) mg/dL Creatinine 1.1 H (0.55-1.02) mg/dL Est Cr Clr Drug Dosing 34.37 mL/min Estimated GFR (MDRD) 49 (>60) mL/min BUN/Creatinine Ratio 13.6 L (14-18) Glucose 284 H (83-115) mg/dL POC Glucose 313 H (83-110) mg/dL Lactic Acid (0.4-2.0) mmol/L Calcium 7.7 L (8.5-10.1) mg/dL Phosphorus 1.6 L (2.6-4.7) mg/dL Magnesium 1.5 L (1.8-2.4) mg/dl 09/02/19 09/02/19 09/02/19 Range/Units 12:05 17:50 22:01 WBC (3.98-10.04) K/mm3 RBC (3.98-5.22) M/mm3 Hgb (11.2-15.7) gm/dl Hct (34.1-44.9) % MCV (79.4-94.8) fl MCH (25.6-32.2) pg MCHC (32.2-35.5) g/dl RDW Std Deviation (36.4-46.3) fL Plt Count (182-369) K/mm3 MPV (9.4-12.3) fl Neut % (Auto) (34.0-71.1) % Lymph % (Auto) (19.3-51.7) % Levy % (Auto) (4.7-12.5) % Eos % (Auto) (0.7-5.8) Baso % (Auto) (0.1-1.2) % Neut # (Auto) (1.56-6.13) K/mm3 Lymph # (Auto) (1.18-3.74) K/mm3 Levy # (Auto) (0.24-0.36) K/mm3 Eos # (Auto) (0.04-0.36) K/mm3 Baso # (Auto) (0.01-0.08) K/mm3 Manual Slide Review Sodium (136-145) mEq/L Potassium (3.5-5.1) mEq/L Chloride (98-107) mEq/L Carbon Dioxide (21-32) mEq/L Anion Gap (5-15) BUN (7-18) mg/dL Creatinine (0.55-1.02) mg/dL Est Cr Clr Drug Dosing mL/min Estimated GFR (MDRD) (>60) mL/min BUN/Creatinine Ratio (14-18) Glucose (83-115) mg/dL POC Glucose 222 H 201 H (83-110) mg/dL Lactic Acid 1.1 (0.4-2.0) mmol/L Calcium (8.5-10.1) mg/dL Phosphorus (2.6-4.7) mg/dL Magnesium (1.8-2.4) mg/dl 09/03/19 09/03/19 09/03/19 Range/Units 06:24 06:43 06:43 WBC 9.27 (3.98-10.04) K/mm3 RBC 3.26 L (3.98-5.22) M/mm3 Hgb 9.2 L (11.2-15.7) gm/dl Hct 28.7 L (34.1-44.9) % MCV 88.0 (79.4-94.8) fl MCH 28.2 (25.6-32.2) pg MCHC 32.1 L (32.2-35.5) g/dl RDW Std Deviation 45.5 (36.4-46.3) fL Plt Count 214 (182-369) K/mm3 MPV 9.5 (9.4-12.3) fl Neut % (Auto) 74.0 H (34.0-71.1) % Lymph % (Auto) 17.0 L (19.3-51.7) % Levy % (Auto) 7.8 (4.7-12.5) % Eos % (Auto) 1.0 (0.7-5.8) Baso % (Auto) 0.2 (0.1-1.2) % Neut # (Auto) 6.86 H (1.56-6.13) K/mm3 Lymph # (Auto) 1.58 (1.18-3.74) K/mm3 Levy # (Auto) 0.72 H (0.24-0.36) K/mm3 Eos # (Auto) 0.09 (0.04-0.36) K/mm3 Baso # (Auto) 0.02 (0.01-0.08) K/mm3 Manual Slide Review Normal smear Sodium 134 L (136-145) mEq/L Potassium 3.6 (3.5-5.1) mEq/L Chloride 100 (98-107) mEq/L Carbon Dioxide 26 (21-32) mEq/L Anion Gap 11.6 (5-15) BUN 11 (7-18) mg/dL Creatinine 0.9 (0.55-1.02) mg/dL Est Cr Clr Drug Dosing 42.01 mL/min Estimated GFR (MDRD) > 60 (>60) mL/min BUN/Creatinine Ratio 12.2 L (14-18) Glucose 167 H (83-115) mg/dL POC Glucose 168 H (83-110) mg/dL Lactic Acid (0.4-2.0) mmol/L Calcium 7.9 L (8.5-10.1) mg/dL Phosphorus 1.3 L (2.6-4.7) mg/dL Magnesium 2.3 (1.8-2.4) mg/dl Sathya Results Last 24 Hours: Microbiology 08/31/19 18:09 Aerobic Blood Culture - Preliminary Blood - Venous - Lab Draw NO GROWTH AFTER 2 DAYS Anaerobic Blood Culture - Preliminary NO GROWTH AFTER 2 DAYS 08/31/19 17:58 Aerobic Blood Culture - Preliminary Blood - Venous NO GROWTH AFTER 2 DAYS Anaerobic Blood Culture - Preliminary NO GROWTH AFTER 2 DAYS Med Orders - Current: Current Medications Acetaminophen (Tylenol) 650 mg PO Q4H PRN PRN Reason: Pain (Mild 1-3)/fever Last Admin: 08/31/19 22:49 Dose: 650 mg Acetaminophen/Codeine Phosphate (Tylenol With Codeine No.3 300mg/30mg) 1 tab PO Q6H PRN PRN Reason: Pain (moderate 4-6) Clopidogrel Bisulfate (Plavix) 75 mg PO DAILY [facility] Last Admin: 09/03/19 08:47 Dose: 75 mg Dextrose/Water (Dextrose 50% In Water) 50 ml IVPUSH ASDIRECTED PRN PRN Reason: Hypoglycemia Enoxaparin Sodium (Lovenox) 40 mg SUBCUT DAILY [facility] Last Admin: 09/03/19 08:47 Dose: 40 mg Ceftriaxone Sodium 2 gm/ (Sodium Chloride) 100 mls @ 200 mls/hr IV Q24H [facility] Last Admin: 09/02/19 16:39 Dose: 200 mls/hr Sodium Chloride (Normal Saline) 250 mls @ 50 mls/hr IV ASDIRECTED [facility] Last Admin: 09/02/19 15:38 Dose: 50 mls/hr Insulin Glargine (Lantus) 30 unit SUBCUT Q24H [facility] Last Admin: 09/02/19 22:02 Dose: 30 units Insulin Human Lispro (Humalog) 0 unit SUBCUT QIDACANDBED [facility]; Protocol Last Admin: 09/03/19 08:47 Dose: 1 units Levothyroxine Sodium (Synthroid) 50 mcg PO ACBRK [facility] Last Admin: 09/03/19 05:48 Dose: 50 mcg Ondansetron HCl (Zofran) 4 mg IVPUSH Q8H PRN PRN Reason: Nausea/Vomiting Last Admin: 09/03/19 02:01 Dose: 4 mg Sodium Chloride (Saline Flush) 10 ml FLUSH ASDIRECTED PRN PRN Reason: Keep Vein Open Last Admin: 09/01/19 12:26 Dose: 10 ml Discontinued Medications Furosemide (Lasix) 40 mg IVPUSH NOW ONE Stop: 09/01/19 08:10 Last Admin: 09/01/19 08:14 Dose: 40 mg Furosemide (Lasix) Confirm Administered Dose 40 mg .ROUTE .STK-MED ONE Stop: 09/01/19 08:11 Last Admin: 09/01/19 08:37 Dose: Not Given Sodium Chloride (Normal Saline) 1,000 mls @ 999 mls/hr IV ASDIRECTED DANETTE Last Admin: 08/31/19 13:56 Dose: 999 mls/hr Sodium Chloride (Normal Saline) 1,000 mls @ 999 mls/hr IV ASDIRECTED DANETTE Sodium Chloride (Normal Saline) 100 mls @ 60 mls/hr IV ASDIRECTED DANETTE Last Admin: 08/31/19 16:08 Dose: 60 mls/hr Sodium Chloride (Normal Saline) 1,000 mls @ 150 mls/hr IV ASDIRECTED DANETTE Last Admin: 08/31/19 18:17 Dose: 150 mls/hr Lactated Ringer's (Ringers, Lactated) 1,000 mls @ 200 mls/hr IV ASDIRECTED DANETTE Stop: 09/02/19 00:59 Last Admin: 08/31/19 21:01 Dose: 200 mls/hr Lactated Ringer's (Ringers, Lactated) 1,000 mls @ 75 mls/hr IV ASDIRECTED DANETTE Stop: 09/01/19 07:00 Potassium Chloride 10 meq/ (Premix) 100 mls @ 100 mls/hr IV ONETIME ONE Stop: 08/31/19 23:59 Last Admin: 08/31/19 22:41 Dose: 100 mls/hr Potassium Chloride 10 meq/ (Premix) 100 mls @ 100 mls/hr IV ONETIME ONE Stop: 09/01/19 00:59 Last Admin: 09/01/19 01:32 Dose: 100 mls/hr Potassium Chloride 10 meq/ (Premix) 100 mls @ 100 mls/hr IV ONETIME ONE Stop: 09/01/19 01:59 Last Admin: 09/01/19 02:46 Dose: 100 mls/hr Potassium Chloride 10 meq/ (Premix) 100 mls @ 100 mls/hr IV ONETIME ONE Stop: 09/01/19 02:59 Last Admin: 09/01/19 06:00 Dose: 100 mls/hr Lactated Ringer's (Ringers, Lactated) 1,000 mls @ 250 mls/hr IV ASDIRECTED [facility] Stop: 09/02/19 04:14 Last Admin: 09/01/19 02:47 Dose: 250 mls/hr Lactated Ringer's (Ringers, Lactated) 500 mls @ 999 mls/hr IV .BOLUS ONE Stop: 09/01/19 06:11 Last Admin: 09/01/19 07:18 Dose: Not Given Lactated Ringer's (Ringers, Lactated) 1,000 mls @ 100 mls/hr IV ASDIRECTED [facility] Last Admin: 09/01/19 15:42 Dose: 100 mls/hr Sodium Chloride (Normal Saline) 100 mls @ 80 mls/hr IV ASDIRECTED [facility] Stop: 09/01/19 13:00 Last Admin: 09/01/19 12:26 Dose: 80 mls/hr Magnesium Sulfate 4 gm/ Premix 100 mls @ 25 mls/hr IV ONETIME ONE Stop: 09/02/19 12:59 Last Admin: 09/02/19 15:36 Dose: 25 mls/hr Potassium Chloride 10 meq/ (Premix) 100 mls @ 100 mls/hr IV Q1H [facility]ANETTE Stop: 09/02/19 16:59 Last Admin: 09/02/19 19:22 Dose: Not Given Potassium Chloride 10 meq/ (Premix) 100 mls @ 100 mls/hr IV Q1H [facility]ANETTE Stop: 09/02/19 20:29 Last Admin: 09/02/19 19:21 Dose: 100 mls/hr Insulin Glargine (Lantus) 10 unit SUBCUT BEDTIME [facility] Last Admin: 08/31/19 22:42 Dose: 10 units Insulin Glargine (Lantus) 30 unit SUBCUT DAILY [facility] Last Admin: 09/02/19 09:23 Dose: Not Given Insulin Human Lispro (Humalog) 0 unit SUBCUT BIDAC [facility]; Protocol Iopamidol (Isovue-300 (61%)) 100 ml IVPUSH ONETIME ONE Stop: 08/31/19 15:54 Last Admin: 08/31/19 16:08 Dose: 100 ml Iopamidol (Isovue-370 (76%)) 100 ml IVPUSH ONETIME ONE Stop: 09/01/19 11:12 Last Admin: 09/01/19 12:26 Dose: 100 ml Morphine Sulfate (Morphine) 1 mg IVPUSH Q4H PRN PRN Reason: Pain (severe 7-10) Stop: 09/01/19 20:58 Ondansetron HCl (Zofran) 4 mg IVPUSH ONETIME ONE Stop: 08/31/19 13:14 Last Admin: 08/31/19 13:56 Dose: 4 mg Ondansetron HCl (Zofran) 4 mg IVPUSH ONETIME ONE Stop: 08/31/19 15:47 Last Admin: 08/31/19 16:13 Dose: 4 mg Ondansetron HCl (Zofran Odt) 8 mg PO Q8H PRN PRN Reason: Nausea/Vomiting Last Admin: 08/31/19 21:28 Dose: 8 mg Sodium Chloride (Saline Flush) 10 ml FLUSH ONETIME ONE Stop: 08/31/19 15:54 Last Admin: 08/31/19 16:09 Dose: 10 ml Sodium Chloride (Saline Flush) 10 ml FLUSH ONETIME PRN PRN Reason: KEEP VEIN OPEN Stop: 09/01/19 13:00 - Exam Quality Assessment: DVT Prophylaxis General: Alert, Oriented, Cooperative, No Acute Distress HEENT: Pupils Equal, Pupils Reactive, Mucous Membr. Moist/[place] Neck: Supple, Trachea Midline Lungs: Normal Respiratory Effort, Decreased Breath Sounds Cardiovascular: Regular Rate, Regular Rhythm GI/Abdominal Exam: Normal Bowel Sounds, Soft, Non-Tender, No Distention, No Abnormal Bruit (Female) Exam: Deferred Back Exam: Normal Inspection, Full Range of Motion Extremities: Normal Inspection, Normal Range of Motion, Non-Tender, No Pedal Edema, Normal Capillary Refill Peripheral Pulses: 2+: Radial (L), Radial (R), Dorsalis Pedis (L), Dorsalis Pedis (R) Skin: Warm, Dry, Intact Neurological: No New Focal Deficit Psy/Mental Status: Alert, Normal Affect, Normal Mood - Problem List & Annotations (1) Acute hypoxemic respiratory failure SNOMED Code(s): 946678102 Code(s): J96.01 - ACUTE RESPIRATORY FAILURE WITH HYPOXIA Status: Acute Priority: High Current Visit: Yes (2) Chronic kidney disease (CKD), stage III (moderate) SNOMED Code(s): 914269686 Code(s): N18.3 - CHRONIC KIDNEY DISEASE, STAGE 3 (MODERATE) Status: Resolved Priority: High Current Visit: Yes (3) Dyslipidemia SNOMED Code(s): 826893839 Code(s): E78.5 - HYPERLIPIDEMIA, UNSPECIFIED Status: Chronic Priority: Medium Current Visit: No (4) Hypertension SNOMED Code(s): 80499244 Code(s): I10 - ESSENTIAL (PRIMARY) HYPERTENSION Status: Acute Current Visit: Yes (5) Hyponatremia SNOMED Code(s): 99958410 Code(s): E87.1 - HYPO-OSMOLALITY AND HYPONATREMIA Status: Chronic Priority: Medium Current Visit: No (6) Hypothyroidism SNOMED Code(s): 83891331 Code(s): E03.9 - HYPOTHYROIDISM, UNSPECIFIED Status: Chronic Priority: Medium Current Visit: No Qualifiers: Hypothyroidism type: unspecified Qualified Code(s): E03.9 - Hypothyroidism , unspecified (7) Leukocytosis SNOMED Code(s): 712897793, 497177672 Code(s): D72.829 - ELEVATED WHITE BLOOD CELL COUNT, UNSPECIFIED Status: Resolved Priority: High Current Visit: Yes Qualifiers: Leukocytosis type: unspecified Qualified Code(s): D72.829 - Elevated white blood cell count, unspecified (8) Pyelonephritis SNOMED Code(s): 39992478 Code(s): N12 - TUBULO-INTERSTITIAL NEPHRITIS, NOT SPCF ACUTE OR CHRONIC Status: Acute Priority: High Current Visit: Yes (9) Recurrent falls while walking SNOMED Code(s): 475954386, 715831761 Code(s): R29.6 - REPEATED FALLS Status: Acute Priority: High Current Visit: Yes (10) Vitamin D deficiency SNOMED Code(s): 47806487 Code(s): E55.9 - VITAMIN D DEFICIENCY, UNSPECIFIED Status: Chronic Priority: Medium Current Visit: No - Problem List Review Problem List Initiated/Reviewed/Updated: Yes - My Orders Last 24 Hours: My Active Orders 09/02/19 14:15 Sodium Chloride 0.9% [Normal Saline] 250 ml IV ASDIRECTED - Plan Plan:: Acute hipoxemic respiratory failure, improved Pulmonary edema, resolved Episode of SOB with hypoxemia requiring BIPAP 09/01--> Transferred to ICU--> Tolerated BiPAP well Improved with Lasix SatO2 trend 89-97% PLAN - Will continue BiPAP PRN - Monitor urine output - Monitor oxygenation - O2 as needed - Repeat CXR Sepsis 2/2 Pyelonephritis Nausea & vomiting Leukocytosis Tachycardia 2 UTI in the past year CT with changes in perinephric region, concern for pyelo Lactic acid elevated on admission--> normal now Given IVF Previous urine culture here from 2013 with pansensitive E. coli Tmax 99.5 PLAN - Continue Rocephin QD, day 4 - F/U cultures - gram negative rods thus far - Trend temperature and panculture if febrile Chronic Kidney disease, Stage 3B - resolved Hypokalemia/Hypomagnesemia/Hypophosphatemia Likely 2/2 GI loss Will replace via IV PLAN - Replace electrolytes - Renally dosed medication - Avoid nephrotoxic agents - Monitor urine output - Daily labs as needed Diabetes mellitus, WcQ4m-3( this admission) Peripheral vascular disease Home pre-meals trend between 110-120 Glucose trend: 160-280, requiring 1-4 corrective units Basal 30 PLAN - Low sensitivity sliding scale insulin, Basal insulin as ordered - Hypoglycemia protocol - Scheduled accu-checks TID AC and HS - Diabetic diet - Diabetic education Hypertension BP 147/68 No home trend available PLAN - Resume home meds Dyslipidemia No acute issues PLAN - Restart home meds Hypothyroidism No acute issues PLAN - Restart home meds on Recurrent falls while walking History of ankle fracture PCP was working on 4 wheel walker but this has been going on for a while so patient is unsure of whether it is still happening Previous fracture of R ankle with forced eversion Has been falling more due to weakness PLAN - PT/OT evaluation - CM and SS on board Vitamin D deficiency Weekly replacement as an outpatient PROPHYLAXIS DVT- Lovenox GI- not indicated CODE STATUS: FULL CODE DISPOSITION: Admitted to [place] for sepsis 2/2 pyelonephritis. Upgraded to ICU on 08/02 for acute respiratory distress. Significantly improved, will downgrade. Will continue BiPAP for now and taper as tolerated Follow PT/OT recommendations Case management and social work aware of case. Patient currently lives with daughter and uses a cane for ambulation for the past 6 years, is dependent on all IADLs except for cooking, completely independent on ADLs. MiniCOG 3/3. Never smoker or drinker
[2019-09-03] MEDS ORDERED: Phosphorus #1 250 MG Tab PO ONE (16:15)
[2019-09-03] MEDS ORDERED: amLODIPine 10 MG Tab PO SCH (16:15)
[2019-09-03] MEDS ORDERED: cefTRIAXone 2 GM in Sodium Chloride 0.9% 100 ML IV ONE (17:30)
[2019-09-03] MEDS ORDERED: Furosemide 40 MG/4 ML VIAL IVPUSH ONE (18:08)
[2019-09-03] MEDS: Simvastatin 20 MG Tab PO SCH (21:16)
[2019-09-03] MEDS: Insulin Glarg,Human.Rec.Analog 100 UNIT/ML ML SUBCUT SCH (21:16)
[2019-09-04] MEDS: Levothyroxine 50 MCG Tab PO SCH (06:30)
[2019-09-04] MEDS: Hydrochlorothiazide 25 MG Tab PO SCH (07:59)
[2019-09-04] MEDS: Clopidogrel 75 MG Tab PO SCH (07:59)
[2019-09-04] MEDS: amLODIPine 10 MG Tab PO SCH (07:59)
[2019-09-04] MEDS: Insulin Lispro 100 Units/ML 3 ML Vial SUBCUT SCH ×4 (08:00→22:55)
[2019-09-04] MEDS: Enoxaparin 40 MG/0.4 ML Syringe SUBCUT SCH (08:02)
--- NOTE | 2019-09-04 08:59 | PCM.PN ---
- General Info Date of Service: 09/04/19 Admission Dx/Problem (Free Text): Admission Diagnosis/Problem Admission Diagnosis/Problem Pyelonephritis Functional Status: Reports: Pain Controlled, Tolerating Diet, Ambulating, Urinating, Incentive Spirometry. Denies: New Symptoms - Review of Systems General: Reports: No Symptoms. Denies: Fever, Weakness, Fatigue, Malaise, Chills HEENT: Reports: No Symptoms. Denies: Headaches, Sore Throat Pulmonary: Reports: Shortness of Breath (improving ), Cough (chronic ). Denies : Sputum, Wheezing Cardiovascular: Reports: Dyspnea on Exertion (improving ). Denies: Chest Pain, Palpitations, Edema Gastrointestinal: Reports: No Symptoms. Denies: Abdominal Pain, Constipation, Diarrhea, Nausea, Vomiting Genitourinary: Reports: No Symptoms. Denies: Pain Musculoskeletal: Reports: No Symptoms Skin: Reports: No Symptoms. Denies: Cyanosis Neurological: Reports: No Symptoms. Denies: Confusion, Difficulty Walking, Gait Disturbance Psychiatric: Reports: No Symptoms - Patient Data Vitals - Most Recent: Last Vital Signs Temp 97.9 F 09/04/19 07:53 Pulse 72 09/04/19 07:53 Resp 20 09/04/19 07:53 BP 123/55 L 09/04/19 07:59 Pulse Ox 98 09/04/19 08:28 Weight - Most Recent: 194 lb 11.2 oz I&O - Last 24 Hours: Intake & Output 09/03/19 09/04/19 09/04/19 22:59 06:59 14:59 Intake Total 800 200 Output Total 300 900 Balance 500 -700 Lab Results Last 24 Hours: Laboratory Results - last 24 hr 09/03/19 09/03/19 09/03/19 Range/Units 12:04 16:59 20:48 POC Glucose 219 H 205 H 214 H (83-110) mg/dL 09/04/19 Range/Units 06:34 POC Glucose 153 H (83-110) mg/dL Sathya Results Last 24 Hours: Microbiology 08/31/19 18:09 Aerobic Blood Culture - Preliminary Blood - Venous - Lab Draw NO GROWTH AFTER 3 DAYS Anaerobic Blood Culture - Preliminary NO GROWTH AFTER 3 DAYS 08/31/19 17:58 Aerobic Blood Culture - Preliminary Blood - Venous NO GROWTH AFTER 3 DAYS Anaerobic Blood Culture - Preliminary NO GROWTH AFTER 3 DAYS 08/31/19 16:27 Urine Culture - Preliminary Urine, Clean Catch Gram Negative Rods Med Orders - Current: Current Medications Acetaminophen (Tylenol) 650 mg PO Q4H PRN PRN Reason: Pain (Mild 1-3)/fever Last Admin: 08/31/19 22:49 Dose: 650 mg Acetaminophen/Codeine Phosphate (Tylenol With Codeine No.3 300mg/30mg) 1 tab PO Q6H PRN PRN Reason: Pain (moderate 4-6) Amlodipine Besylate (Norvasc) 10 mg PO DAILY [facility] Last Admin: 09/04/19 07:59 Dose: 10 mg Clopidogrel Bisulfate (Plavix) 75 mg PO DAILY [facility] Last Admin: 09/04/19 07:59 Dose: 75 mg Dextrose/Water (Dextrose 50% In Water) 50 ml IVPUSH ASDIRECTED PRN PRN Reason: Hypoglycemia Enoxaparin Sodium (Lovenox) 40 mg SUBCUT DAILY [facility] Last Admin: 09/04/19 08:02 Dose: 40 mg Hydrochlorothiazide (Hydrochlorothiazide) 25 mg PO DAILY [facility] Last Admin: 09/04/19 07:59 Dose: 25 mg Ceftriaxone Sodium 2 gm/ (Sodium Chloride) 100 mls @ 200 mls/hr IV Q24H [facility] Insulin Glargine (Lantus) 30 unit SUBCUT Q24H [facility] Last Admin: 09/03/19 21:16 Dose: 30 units Insulin Human Lispro (Humalog) 0 unit SUBCUT QIDACANDBED [facility]; Protocol Last Admin: 09/04/19 08:00 Dose: 1 units Levothyroxine Sodium (Synthroid) 50 mcg PO ACBRK [facility] Last Admin: 09/04/19 06:30 Dose: 50 mcg Ondansetron HCl (Zofran) 4 mg IVPUSH Q8H PRN PRN Reason: Nausea/Vomiting Last Admin: 09/03/19 02:01 Dose: 4 mg Potassium Chloride (Klor-Con M20) 20 meq PO DAILY [facility] Last Admin: 09/04/19 07:59 Dose: 20 meq Simvastatin (Zocor) 20 mg PO BEDTIME [facility] Last Admin: 09/03/19 21:16 Dose: 20 mg Sodium Chloride (Saline Flush) 10 ml FLUSH ASDIRECTED PRN PRN Reason: Keep Vein Open Last Admin: 09/01/19 12:26 Dose: 10 ml Discontinued Medications Amlodipine Besylate (Norvasc) 10 mg PO DAILY [facility] Stop: 09/04/19 09:00 Last Admin: 09/03/19 16:49 Dose: Not Given Furosemide (Lasix) 40 mg IVPUSH NOW ONE Stop: 09/01/19 08:10 Last Admin: 09/01/19 08:14 Dose: 40 mg Furosemide (Lasix) Confirm Administered Dose 40 mg .ROUTE .STK-MED ONE Stop: 09/01/19 08:11 Last Admin: 09/01/19 08:37 Dose: Not Given Furosemide (Lasix) 40 mg IVPUSH ONETIME ONE Stop: 09/03/19 18:09 Last Admin: 09/03/19 18:30 Dose: 40 mg Sodium Chloride (Normal Saline) 1,000 mls @ 999 mls/hr IV ASDIRECTED [facility] Last Admin: 08/31/19 13:56 Dose: 999 mls/hr Sodium Chloride (Normal Saline) 1,000 mls @ 999 mls/hr IV ASDIRECTED [facility] Sodium Chloride (Normal Saline) 100 mls @ 60 mls/hr IV ASDIRECTED [facility] Last Admin: 08/31/19 16:08 Dose: 60 mls/hr Ceftriaxone Sodium 2 gm/ (Sodium Chloride) 100 mls @ 200 mls/hr IV Q24H [facility] Last Admin: 09/02/19 16:39 Dose: 200 mls/hr Sodium Chloride (Normal Saline) 1,000 mls @ 150 mls/hr IV ASDIRECTED [facility] Last Admin: 08/31/19 18:17 Dose: 150 mls/hr Lactated Ringer's (Ringers, Lactated) 1,000 mls @ 200 mls/hr IV ASDIRECTED [facility] Stop: 09/02/19 00:59 Last Admin: 08/31/19 21:01 Dose: 200 mls/hr Lactated Ringer's (Ringers, Lactated) 1,000 mls @ 75 mls/hr IV ASDIRECTED [facility] Stop: 09/01/19 07:00 Potassium Chloride 10 meq/ (Premix) 100 mls @ 100 mls/hr IV ONETIME ONE Stop: 08/31/19 23:59 Last Admin: 08/31/19 22:41 Dose: 100 mls/hr Potassium Chloride 10 meq/ (Premix) 100 mls @ 100 mls/hr IV ONETIME ONE Stop: 09/01/19 00:59 Last Admin: 09/01/19 01:32 Dose: 100 mls/hr Potassium Chloride 10 meq/ (Premix) 100 mls @ 100 mls/hr IV ONETIME ONE Stop: 09/01/19 01:59 Last Admin: 09/01/19 02:46 Dose: 100 mls/hr Potassium Chloride 10 meq/ (Premix) 100 mls @ 100 mls/hr IV ONETIME ONE Stop: 09/01/19 02:59 Last Admin: 09/01/19 06:00 Dose: 100 mls/hr Lactated Ringer's (Ringers, Lactated) 1,000 mls @ 250 mls/hr IV ASDIRECTED [facility] Stop: 09/02/19 04:14 Last Admin: 09/01/19 02:47 Dose: 250 mls/hr Lactated Ringer's (Ringers, Lactated) 500 mls @ 999 mls/hr IV .BOLUS ONE Stop: 09/01/19 06:11 Last Admin: 09/01/19 07:18 Dose: Not Given Lactated Ringer's (Ringers, Lactated) 1,000 mls @ 100 mls/hr IV ASDIRECTED [facility] Last Admin: 09/01/19 15:42 Dose: 100 mls/hr Sodium Chloride (Normal Saline) 100 mls @ 80 mls/hr IV ASDIRECTED [facility] Stop: 09/01/19 13:00 Last Admin: 09/01/19 12:26 Dose: 80 mls/hr Magnesium Sulfate 4 gm/ Premix 100 mls @ 25 mls/hr IV ONETIME ONE Stop: 09/02/19 12:59 Last Admin: 09/02/19 15:36 Dose: 25 mls/hr Potassium Chloride 10 meq/ (Premix) 100 mls @ 100 mls/hr IV Q1H [facility] Stop: 09/02/19 16:59 Last Admin: 09/02/19 19:22 Dose: Not Given Sodium Chloride (Normal Saline) 250 mls @ 50 mls/hr IV ASDIRECTED [facility] Last Admin: 09/02/19 15:38 Dose: 50 mls/hr Potassium Chloride 10 meq/ (Premix) 100 mls @ 100 mls/hr IV Q1H [facility] Stop: 09/02/19 20:29 Last Admin: 09/02/19 19:21 Dose: 100 mls/hr Ceftriaxone Sodium 2 gm/ (Sodium Chloride) 100 mls @ 200 mls/hr IV ONETIME ONE Stop: 09/03/19 17:59 Last Admin: 09/03/19 16:53 Dose: 200 mls/hr Insulin Glargine (Lantus) 10 unit SUBCUT BEDTIME [facility] Last Admin: 08/31/19 22:42 Dose: 10 units Insulin Glargine (Lantus) 30 unit SUBCUT DAILY [facility] Last Admin: 09/02/19 09:23 Dose: Not Given Insulin Human Lispro (Humalog) 0 unit SUBCUT BIDAC [facility]; Protocol Iopamidol (Isovue-300 (61%)) 100 ml IVPUSH ONETIME ONE Stop: 08/31/19 15:54 Last Admin: 08/31/19 16:08 Dose: 100 ml Iopamidol (Isovue-370 (76%)) 100 ml IVPUSH ONETIME ONE Stop: 09/01/19 11:12 Last Admin: 09/01/19 12:26 Dose: 100 ml Morphine Sulfate (Morphine) 1 mg IVPUSH Q4H PRN PRN Reason: Pain (severe 7-10) Stop: 09/01/19 20:58 Ondansetron HCl (Zofran) 4 mg IVPUSH ONETIME ONE Stop: 08/31/19 13:14 Last Admin: 08/31/19 13:56 Dose: 4 mg Ondansetron HCl (Zofran) 4 mg IVPUSH ONETIME ONE Stop: 08/31/19 15:47 Last Admin: 08/31/19 16:13 Dose: 4 mg Ondansetron HCl (Zofran Odt) 8 mg PO Q8H PRN PRN Reason: Nausea/Vomiting Last Admin: 08/31/19 21:28 Dose: 8 mg Sodium Chloride (Saline Flush) 10 ml FLUSH ONETIME ONE Stop: 08/31/19 15:54 Last Admin: 08/31/19 16:09 Dose: 10 ml Sodium Chloride (Saline Flush) 10 ml FLUSH ONETIME PRN PRN Reason: KEEP VEIN OPEN Stop: 09/01/19 13:00 Sodium Phosphate (Neutra-Phos) 250 mg PO ONETIME ONE Stop: 09/03/19 16:16 Last Admin: 09/03/19 16:47 Dose: 250 mg - Exam Quality Assessment: DVT Prophylaxis. No: Supplemental Oxygen General: Alert, Oriented, Cooperative, No Acute Distress HEENT: Pupils Equal, Pupils Reactive, Mucous Membr. Moist/[place] Neck: Supple, Trachea Midline Lungs: Normal Respiratory Effort, Decreased Breath Sounds, Rales (improved ) Cardiovascular: Regular Rate, Regular Rhythm GI/Abdominal Exam: Normal Bowel Sounds, Soft, Non-Tender, No Distention, No Abnormal Bruit (Female) Exam: Deferred Back Exam: Normal Inspection, Full Range of Motion Extremities: Normal Inspection, Normal Range of Motion, Non-Tender, No Pedal Edema, Normal Capillary Refill Peripheral Pulses: 2+: Radial (L), Radial (R), Dorsalis Pedis (L), Dorsalis Pedis (R) Skin: Warm, Dry, Intact Neurological: No New Focal Deficit Psy/Mental Status: Alert, Normal Affect, Normal Mood - Problem List & Annotations (1) Acute hypoxemic respiratory failure SNOMED Code(s): 933906143 Code(s): J96.01 - ACUTE RESPIRATORY FAILURE WITH HYPOXIA Status: Acute Priority: High Current Visit: Yes (2) Chronic kidney disease (CKD), stage III (moderate) SNOMED Code(s): 613148869 Code(s): N18.3 - CHRONIC KIDNEY DISEASE, STAGE 3 (MODERATE) Status: Resolved Priority: High Current Visit: Yes (3) Dyslipidemia SNOMED Code(s): 221578723 Code(s): E78.5 - HYPERLIPIDEMIA, UNSPECIFIED Status: Chronic Priority: Medium Current Visit: No (4) Hypertension SNOMED Code(s): 75193202 Code(s): I10 - ESSENTIAL (PRIMARY) HYPERTENSION Status: Acute Current Visit: Yes (5) Hyponatremia SNOMED Code(s): 09296360 Code(s): E87.1 - HYPO-OSMOLALITY AND HYPONATREMIA Status: Chronic Priority: Medium Current Visit: No (6) Hypothyroidism SNOMED Code(s): 50790450 Code(s): E03.9 - HYPOTHYROIDISM, UNSPECIFIED Status: Chronic Priority: Medium Current Visit: No Qualifiers: Hypothyroidism type: unspecified Qualified Code(s): E03.9 - Hypothyroidism , unspecified (7) Leukocytosis SNOMED Code(s): 080838137, 669952978 Code(s): D72.829 - ELEVATED WHITE BLOOD CELL COUNT, UNSPECIFIED Status: Resolved Priority: High Current Visit: Yes Qualifiers: Leukocytosis type: unspecified Qualified Code(s): D72.829 - Elevated white blood cell count, unspecified (8) Pyelonephritis SNOMED Code(s): 36320998 Code(s): N12 - TUBULO-INTERSTITIAL NEPHRITIS, NOT SPCF ACUTE OR CHRONIC Status: Acute Priority: High Current Visit: Yes (9) Recurrent falls while walking SNOMED Code(s): 614139802, 674637703 Code(s): R29.6 - REPEATED FALLS Status: Acute Priority: High Current Visit: Yes (10) Vitamin D deficiency SNOMED Code(s): 12002891 Code(s): E55.9 - VITAMIN D DEFICIENCY, UNSPECIFIED Status: Chronic Priority: Medium Current Visit: No - Problem List Review Problem List Initiated/Reviewed/Updated: Yes - My Orders Last 24 Hours: My Active Orders 09/03/19 14:58 CXR [Chest 2V] [CR] Routine 09/03/19 16:04 RT Incentive Spirometry [RC] ASDIRECTED 09/03/19 21:00 Simvastatin [Zocor] 20 mg PO BEDTIME 09/04/19 07:36 BASIC METABOLIC PANEL,BMP [CHEM] Routine CBC WITH AUTO DIFF [HEME] Routine MAGNESIUM [CHEM] Routine 09/04/19 09:00 Potassium Chloride [Klor-Con M20] 20 meq PO DAILY amLODIPine [Norvasc] 10 mg PO DAILY hydroCHLOROthiazide 25 mg PO DAILY - Plan Plan:: Acute hipoxemic respiratory failure, improved Pulmonary edema, resolved Episode of SOB with hypoxemia requiring BIPAP 09/01--> Transferred to ICU--> Tolerated BiPAP well-> downgraded to floor 2/2 aggressive hydration for sepsis Improved with Lasix SatO2 trend 89-97% PLAN - Will continue BiPAP PRN - Monitor urine output - Monitor oxygenation - O2 as needed -> off today - Repeat CXR improved - Repeat lasix x1 dose today Sepsis 2/2 Pyelonephritis Nausea & vomiting Leukocytosis Tachycardia 2 UTI in the past year CT with changes in perinephric region, concern for pyelo Lactic acid elevated on admission--> normal now Given IVF Previous urine culture here from 2013 with pansensitive E. coli Tmax 99.5 PLAN - Continue Rocephin QD, day 5 - Will likely need 10 days total treatment for pyelonephritis - F/U cultures - E.coli - Trend temperature and panculture if febrile Chronic Kidney disease, Stage 3B - resolved Hypokalemia/Hypomagnesemia/Hypophosphatemia Likely 2/2 GI loss Will replace via IV PLAN - Replace electrolytes - Renally dosed medication - Avoid nephrotoxic agents - Monitor urine output - Daily labs as needed Diabetes mellitus, [id number]-3 (this admission) Peripheral vascular disease Home pre-meals trend between 110-120 Glucose trend: 160-280, requiring 1-4 corrective units Basal 30 PLAN - Low sensitivity sliding scale insulin, Basal insulin as ordered - Hypoglycemia protocol - Scheduled accu-checks TID AC and HS - Diabetic diet - Diabetic education Hypertension, resolved BP 147/68 No home trend available PLAN - Resume home meds Dyslipidemia, stable No acute issues PLAN - Restart home meds Hypothyroidism No acute issues PLAN - Restart home meds on Recurrent falls while walking History of ankle fracture PCP was working on 4 wheel walker but this has been going on for a while so patient is unsure of whether it is still happening Previous fracture of R ankle with forced eversion Has been falling more due to weakness PLAN - PT/OT evaluation - CM and SS on board Vitamin D deficiency Weekly replacement as an outpatient PROPHYLAXIS DVT- Lovenox GI- not indicated CODE STATUS: FULL CODE DISPOSITION: Admitted to [facility] for sepsis 2/2 pyelonephritis. Upgraded to ICU on 08/02 for acute respiratory distress. Significantly improved, will downgrade. Will continue BiPAP for now and taper as tolerated Follow PT/OT recommendations Case management and social work aware of case. Patient currently lives with daughter and uses a cane for ambulation for the past 6 years, is dependent on all IADLs except for cooking, completely independent on ADLs. MiniCOG 3/3. Never smoker or drinker LOS >96 Hr due to continued need for diuresis, weaning of oxygen. Likely discharge 09/05/19 pending continued improvement.
[2019-09-04] MEDS ORDERED: Potassium Chloride 20 MEQ Tab.ER PO SCH (09:00)
[2019-09-04] MEDS ORDERED: Potassium Chloride 10% 20 MEQ/15 ML Soln 15 ML UD Cup PO ONE (12:07)
[2019-09-04] MEDS ORDERED: Furosemide 40 MG/4 ML VIAL IVPUSH ONE (12:08)
[2019-09-04] MEDS: Docusate Sodium 100 MG Cap PO SCH (13:05)
[2019-09-04] MEDS: cefTRIAXone 2 GM in Sodium Chloride 0.9% 100 ML IV SCH (17:24)
[2019-09-04] MEDS: Insulin Glarg,Human.Rec.Analog 100 UNIT/ML ML SUBCUT SCH (22:54)
[2019-09-04] MEDS: Simvastatin 20 MG Tab PO SCH (22:55)
[2019-09-05] MEDS: Levothyroxine 50 MCG Tab PO SCH (07:31)
[2019-09-05] MEDS: Insulin Lispro 100 Units/ML 3 ML Vial SUBCUT SCH ×4 (07:32→22:13)
[2019-09-05] MEDS: Clopidogrel 75 MG Tab PO SCH (09:13)
[2019-09-05] MEDS: Potassium Chloride 10% 20 MEQ/15 ML Soln 15 ML UD Cup PO SCH (09:13)
[2019-09-05] MEDS: Docusate Sodium 100 MG Cap PO SCH (09:13)
[2019-09-05] MEDS: Hydrochlorothiazide 25 MG Tab PO SCH (09:14)
[2019-09-05] MEDS: amLODIPine 10 MG Tab PO SCH (09:14)
[2019-09-05] MEDS: Enoxaparin 40 MG/0.4 ML Syringe SUBCUT SCH (09:14)
[2019-09-05] MEDS ORDERED: Magnesium Hydroxide 400 MG/5 ML Susp 30 ML Cup PO ONE (11:45)
--- NOTE | 2019-09-05 15:35 | PCM.PN ---
- General Info Date of Service: 09/05/19 Admission Dx/Problem (Free Text): Admission Diagnosis/Problem Admission Diagnosis/Problem Pyelonephritis Subjective Update: Lea reports she feels good today. She is eating well and off of oxygen - Review of Systems General: Reports: No Symptoms HEENT: Reports: No Symptoms Pulmonary: Reports: No Symptoms Cardiovascular: Reports: No Symptoms Gastrointestinal: Reports: No Symptoms Psychiatric: Reports: No Symptoms - Patient Data Vitals - Most Recent: Last Vital Signs Temp 98.4 F 09/05/19 08:10 Pulse 72 09/05/19 08:10 Resp 12 09/05/19 08:10 BP 116/90 09/05/19 09:14 Pulse Ox 95 09/05/19 09:04 Weight - Most Recent: 189 lb 1.6 oz I&O - Last 24 Hours: Intake & Output 09/05/19 09/05/19 09/05/19 06:59 14:59 22:59 Intake Total 300 180 Output Total 1600 Balance -1300 180 Lab Results Last 24 Hours: Laboratory Results - last 24 hr 09/04/19 09/04/19 09/05/19 Range/Units 17:23 22:54 05:43 WBC 10.08 H (3.98-10.04) K/mm3 RBC 3.53 L (3.98-5.22) M/mm3 Hgb 9.8 L (11.2-15.7) gm/dl Hct 30.9 L (34.1-44.9) % MCV 87.5 (79.4-94.8) fl MCH 27.8 (25.6-32.2) pg MCHC 31.7 L (32.2-35.5) g/dl RDW Std Deviation 44.6 (36.4-46.3) fL Plt Count 353 (182-369) K/mm3 MPV 9.1 L (9.4-12.3) fl Neut % (Auto) 66.7 (34.0-71.1) % Lymph % (Auto) 18.5 L (19.3-51.7) % Whitfield % (Auto) 7.6 (4.7-12.5) % Eos % (Auto) 2.2 (0.7-5.8) Baso % (Auto) 0.6 (0.1-1.2) % Neut # (Auto) 6.73 H (1.56-6.13) K/mm3 Lymph # (Auto) 1.86 (1.18-3.74) K/mm3 Whitfield # (Auto) 0.77 H (0.24-0.36) K/mm3 Eos # (Auto) 0.22 (0.04-0.36) K/mm3 Baso # (Auto) 0.06 (0.01-0.08) K/mm3 Manual Slide Review Normal smear Sodium (136-145) mEq/L Potassium (3.5-5.1) mEq/L Chloride (98-107) mEq/L Carbon Dioxide (21-32) mEq/L Anion Gap (5-15) BUN (7-18) mg/dL Creatinine (0.55-1.02) mg/dL Est Cr Clr Drug Dosing mL/min Estimated GFR (MDRD) (>60) mL/min BUN/Creatinine Ratio (14-18) Glucose (83-115) mg/dL POC Glucose 204 H 230 H (83-110) mg/dL Calcium (8.5-10.1) mg/dL Magnesium (1.8-2.4) mg/dl 09/05/19 09/05/19 09/05/19 Range/Units 05:43 07:18 11:12 WBC (3.98-10.04) K/mm3 RBC (3.98-5.22) M/mm3 Hgb (11.2-15.7) gm/dl Hct (34.1-44.9) % MCV (79.4-94.8) fl MCH (25.6-32.2) pg MCHC (32.2-35.5) g/dl RDW Std Deviation (36.4-46.3) fL Plt Count (182-369) K/mm3 MPV (9.4-12.3) fl Neut % (Auto) (34.0-71.1) % Lymph % (Auto) (19.3-51.7) % Whitfield % (Auto) (4.7-12.5) % Eos % (Auto) (0.7-5.8) Baso % (Auto) (0.1-1.2) % Neut # (Auto) (1.56-6.13) K/mm3 Lymph # (Auto) (1.18-3.74) K/mm3 Whitfield # (Auto) (0.24-0.36) K/mm3 Eos # (Auto) (0.04-0.36) K/mm3 Baso # (Auto) (0.01-0.08) K/mm3 Manual Slide Review Sodium 135 L (136-145) mEq/L Potassium 3.3 L (3.5-5.1) mEq/L Chloride 98 (98-107) mEq/L Carbon Dioxide 28 (21-32) mEq/L Anion Gap 12.3 (5-15) BUN 8 (7-18) mg/dL Creatinine 0.9 (0.55-1.02) mg/dL Est Cr Clr Drug Dosing 42.01 mL/min Estimated GFR (MDRD) > 60 (>60) mL/min BUN/Creatinine Ratio 8.9 L (14-18) Glucose 138 H (83-115) mg/dL POC Glucose 140 H 230 H (83-110) mg/dL Calcium 8.1 L (8.5-10.1) mg/dL Magnesium 1.8 (1.8-2.4) mg/dl Sathya Results Last 24 Hours: Microbiology 08/31/19 18:09 Aerobic Blood Culture - Preliminary Blood - Venous - Lab Draw NO GROWTH AFTER 4 DAYS Anaerobic Blood Culture - Preliminary NO GROWTH AFTER 4 DAYS 08/31/19 17:58 Aerobic Blood Culture - Preliminary Blood - Venous NO GROWTH AFTER 4 DAYS Anaerobic Blood Culture - Preliminary NO GROWTH AFTER 4 DAYS 08/31/19 16:27 Urine Culture - Final Urine, Clean Catch Escherichia Coli Med Orders - Current: Current Medications Acetaminophen (Tylenol) 650 mg PO Q4H PRN PRN Reason: Pain (Mild 1-3)/fever Last Admin: 08/31/19 22:49 Dose: 650 mg Acetaminophen/Codeine Phosphate (Tylenol With Codeine No.3 300mg/30mg) 1 tab PO Q6H PRN PRN Reason: Pain (moderate 4-6) Amlodipine Besylate (Norvasc) 10 mg PO DAILY [facility] Last Admin: 09/05/19 09:14 Dose: 10 mg Clopidogrel Bisulfate (Plavix) 75 mg PO DAILY [facility] Last Admin: 09/05/19 09:13 Dose: 75 mg Dextrose/Water (Dextrose 50% In Water) 50 ml IVPUSH ASDIRECTED PRN PRN Reason: Hypoglycemia Docusate Sodium (Colace) 100 mg PO DAILY [facility] Last Admin: 09/05/19 09:13 Dose: 100 mg Enoxaparin Sodium (Lovenox) 40 mg SUBCUT DAILY [facility] Last Admin: 09/05/19 09:14 Dose: 40 mg Hydrochlorothiazide (Hydrochlorothiazide) 25 mg PO DAILY [facility] Last Admin: 09/05/19 09:14 Dose: 25 mg Ceftriaxone Sodium 2 gm/ (Sodium Chloride) 100 mls @ 200 mls/hr IV Q24H [facility] Last Admin: 09/04/19 17:24 Dose: 200 mls/hr Insulin Glargine (Lantus) 30 unit SUBCUT Q24H [facility] Last Admin: 09/04/19 22:54 Dose: 30 units Insulin Human Lispro (Humalog) 0 unit SUBCUT QIDACANDBED [facility]; Protocol Last Admin: 09/05/19 11:54 Dose: 2 units Levothyroxine Sodium (Synthroid) 50 mcg PO ACBRK [facility] Last Admin: 09/05/19 07:31 Dose: 50 mcg Ondansetron HCl (Zofran) 4 mg IVPUSH Q8H PRN PRN Reason: Nausea/Vomiting Last Admin: 09/03/19 02:01 Dose: 4 mg Potassium Chloride (Potassium Chloride Solution) 40 meq PO DAILY [facility] Last Admin: 09/05/19 09:13 Dose: 40 meq Simvastatin (Zocor) 20 mg PO BEDTIME [facility] Last Admin: 09/04/19 22:55 Dose: 20 mg Sodium Chloride (Saline Flush) 10 ml FLUSH ASDIRECTED PRN PRN Reason: Keep Vein Open Last Admin: 09/01/19 12:26 Dose: 10 ml Discontinued Medications Amlodipine Besylate (Norvasc) 10 mg PO DAILY [facility] Stop: 09/04/19 09:00 Last Admin: 09/03/19 16:49 Dose: Not Given Furosemide (Lasix) 40 mg IVPUSH NOW ONE Stop: 09/01/19 08:10 Last Admin: 09/01/19 08:14 Dose: 40 mg Furosemide (Lasix) Confirm Administered Dose 40 mg .ROUTE .STK-MED ONE Stop: 09/01/19 08:11 Last Admin: 09/01/19 08:37 Dose: Not Given Furosemide (Lasix) 40 mg IVPUSH ONETIME ONE Stop: 09/03/19 18:09 Last Admin: 09/03/19 18:30 Dose: 40 mg Furosemide (Lasix) 40 mg IVPUSH NOW ONE Stop: 09/04/19 12:09 Last Admin: 09/04/19 13:09 Dose: 40 mg Sodium Chloride (Normal Saline) 1,000 mls @ 999 mls/hr IV ASDIRECTED DANETTE Last Admin: 08/31/19 13:56 Dose: 999 mls/hr Sodium Chloride (Normal Saline) 1,000 mls @ 999 mls/hr IV ASDIRECTED DANETTE Sodium Chloride (Normal Saline) 100 mls @ 60 mls/hr IV ASDIRECTED DANETTE Last Admin: 08/31/19 16:08 Dose: 60 mls/hr Ceftriaxone Sodium 2 gm/ (Sodium Chloride) 100 mls @ 200 mls/hr IV Q24H [facility] Last Admin: 09/02/19 16:39 Dose: 200 mls/hr Sodium Chloride (Normal Saline) 1,000 mls @ 150 mls/hr IV ASDIRECTED DANETTE Last Admin: 08/31/19 18:17 Dose: 150 mls/hr Lactated Ringer's (Ringers, Lactated) 1,000 mls @ 200 mls/hr IV ASDIRECTED DANETTE Stop: 09/02/19 00:59 Last Admin: 08/31/19 21:01 Dose: 200 mls/hr Lactated Ringer's (Ringers, Lactated) 1,000 mls @ 75 mls/hr IV ASDIRECTED DANETTE Stop: 09/01/19 07:00 Potassium Chloride 10 meq/ (Premix) 100 mls @ 100 mls/hr IV ONETIME ONE Stop: 08/31/19 23:59 Last Admin: 08/31/19 22:41 Dose: 100 mls/hr Potassium Chloride 10 meq/ (Premix) 100 mls @ 100 mls/hr IV ONETIME ONE Stop: 09/01/19 00:59 Last Admin: 09/01/19 01:32 Dose: 100 mls/hr Potassium Chloride 10 meq/ (Premix) 100 mls @ 100 mls/hr IV ONETIME ONE Stop: 09/01/19 01:59 Last Admin: 09/01/19 02:46 Dose: 100 mls/hr Potassium Chloride 10 meq/ (Premix) 100 mls @ 100 mls/hr IV ONETIME ONE Stop: 09/01/19 02:59 Last Admin: 09/01/19 06:00 Dose: 100 mls/hr Lactated Ringer's (Ringers, Lactated) 1,000 mls @ 250 mls/hr IV ASDIRECTED [facility] Stop: 09/02/19 04:14 Last Admin: 09/01/19 02:47 Dose: 250 mls/hr Lactated Ringer's (Ringers, Lactated) 500 mls @ 999 mls/hr IV .BOLUS ONE Stop: 09/01/19 06:11 Last Admin: 09/01/19 07:18 Dose: Not Given Lactated Ringer's (Ringers, Lactated) 1,000 mls @ 100 mls/hr IV ASDIRECTED [facility] Last Admin: 09/01/19 15:42 Dose: 100 mls/hr Sodium Chloride (Normal Saline) 100 mls @ 80 mls/hr IV ASDIRECTED [facility] Stop: 09/01/19 13:00 Last Admin: 09/01/19 12:26 Dose: 80 mls/hr Magnesium Sulfate 4 gm/ Premix 100 mls @ 25 mls/hr IV ONETIME ONE Stop: 09/02/19 12:59 Last Admin: 09/02/19 15:36 Dose: 25 mls/hr Potassium Chloride 10 meq/ (Premix) 100 mls @ 100 mls/hr IV Q1H [facility] Stop: 09/02/19 16:59 Last Admin: 09/02/19 19:22 Dose: Not Given Sodium Chloride (Normal Saline) 250 mls @ 50 mls/hr IV ASDIRECTED [facility] Last Admin: 09/02/19 15:38 Dose: 50 mls/hr Potassium Chloride 10 meq/ (Premix) 100 mls @ 100 mls/hr IV Q1H [facility] Stop: 09/02/19 20:29 Last Admin: 09/02/19 19:21 Dose: 100 mls/hr Ceftriaxone Sodium 2 gm/ (Sodium Chloride) 100 mls @ 200 mls/hr IV ONETIME ONE Stop: 09/03/19 17:59 Last Admin: 09/03/19 16:53 Dose: 200 mls/hr Insulin Glargine (Lantus) 10 unit SUBCUT BEDTIME [facility] Last Admin: 08/31/19 22:42 Dose: 10 units Insulin Glargine (Lantus) 30 unit SUBCUT DAILY [facility] Last Admin: 09/02/19 09:23 Dose: Not Given Insulin Human Lispro (Humalog) 0 unit SUBCUT BIDAC [facility]; Protocol Iopamidol (Isovue-300 (61%)) 100 ml IVPUSH ONETIME ONE Stop: 08/31/19 15:54 Last Admin: 08/31/19 16:08 Dose: 100 ml Iopamidol (Isovue-370 (76%)) 100 ml IVPUSH ONETIME ONE Stop: 09/01/19 11:12 Last Admin: 09/01/19 12:26 Dose: 100 ml Magnesium Hydroxide (Milk Of Magnesia) 30 ml PO ONETIME ONE Stop: 09/05/19 11:46 Last Admin: 09/05/19 11:54 Dose: 30 ml Morphine Sulfate (Morphine) 1 mg IVPUSH Q4H PRN PRN Reason: Pain (severe 7-10) Stop: 09/01/19 20:58 Ondansetron HCl (Zofran) 4 mg IVPUSH ONETIME ONE Stop: 08/31/19 13:14 Last Admin: 08/31/19 13:56 Dose: 4 mg Ondansetron HCl (Zofran) 4 mg IVPUSH ONETIME ONE Stop: 08/31/19 15:47 Last Admin: 08/31/19 16:13 Dose: 4 mg Ondansetron HCl (Zofran Odt) 8 mg PO Q8H PRN PRN Reason: Nausea/Vomiting Last Admin: 08/31/19 21:28 Dose: 8 mg Potassium Chloride (Klor-Con M20) 20 meq PO DAILY [facility] Last Admin: 09/04/19 07:59 Dose: 20 meq Potassium Chloride (Potassium Chloride Solution) 40 meq PO ONETIME ONE Stop: 09/04/19 12:08 Last Admin: 09/04/19 13:05 Dose: 40 meq Sodium Chloride (Saline Flush) 10 ml FLUSH ONETIME ONE Stop: 08/31/19 15:54 Last Admin: 08/31/19 16:09 Dose: 10 ml Sodium Chloride (Saline Flush) 10 ml FLUSH ONETIME PRN PRN Reason: KEEP VEIN OPEN Stop: 09/01/19 13:00 Sodium Phosphate (Neutra-Phos) 250 mg PO ONETIME ONE Stop: 09/03/19 16:16 Last Admin: 09/03/19 16:47 Dose: 250 mg - Exam Quality Assessment: Supplemental Oxygen General: Alert HEENT: Pupils Equal Neck: Supple Lungs: Clear to Auscultation, Normal Respiratory Effort Cardiovascular: Regular Rate, Regular Rhythm GI/Abdominal Exam: Normal Bowel Sounds, Soft, Non-Tender, No Organomegaly, No Distention, No Abnormal Bruit, No Mass, Pelvis Stable Extremities: Normal Inspection, No Pedal Edema Skin: Warm, Dry, Intact Psy/Mental Status: Alert, Normal Affect, Normal Mood - Problem List Review Problem List Initiated/Reviewed/Updated: Yes - Plan Plan:: Acute hipoxemic respiratory failure, improved Pulmonary edema, resolved Episode of SOB with hypoxemia requiring BIPAP 09/01--> Transferred to ICU--> Tolerated BiPAP well-> downgraded to floor 2/2 aggressive hydration for sepsis Improved with Lasix Off O2 PLAN - Will continue BiPAP PRN - Monitor urine output - Monitor oxygenation - O2 as needed -> off today - Repeat CXR improved - Repeat lasix x1 dose today Sepsis 2/2 Pyelonephritis Nausea & vomiting Leukocytosis Tachycardia 2 UTI in the past year CT with changes in perinephric region, concern for pyelo Lactic acid elevated on admission--> normal now Given IVF Previous urine culture here from 2013 with pansensitive E. coli Tmax 99.5 White blood cell count increased to 10,000 today PLAN - Continue Rocephin QD, day 6 - Will likely need 10 days total treatment for pyelonephritis - F/U cultures - E.coli -sensitive to Rocephin - Trend temperature and panculture if febrile Chronic Kidney disease, Stage 3B - resolved Hypokalemia/Hypomagnesemia/Hypophosphatemia Likely 2/2 GI loss Will replace via IV PLAN - Replace electrolytes - Renally dosed medication - Avoid nephrotoxic agents - Monitor urine output - Daily labs as needed Diabetes mellitus, [id number] (this admission) Peripheral vascular disease Home pre-meals trend between 110-120 Glucose trend: 160-280, requiring 1-4 corrective units Basal 30 PLAN - Low sensitivity sliding scale insulin, Basal insulin as ordered - Hypoglycemia protocol - Scheduled accu-checks TID AC and HS - Diabetic diet - Diabetic education Hypertension, resolved BP 147/68 No home trend available PLAN - Resume home meds Dyslipidemia, stable No acute issues PLAN - Restart home meds Hypothyroidism No acute issues PLAN - Restart home meds on Recurrent falls while walking History of ankle fracture PCP was working on 4 wheel walker but this has been going on for a while so patient is unsure of whether it is still happening Previous fracture of R ankle with forced eversion Has been falling more due to weakness PLAN - PT/OT evaluation - CM and SS on board Vitamin D deficiency Weekly replacement as an outpatient PROPHYLAXIS DVT- Lovenox GI- not indicated CODE STATUS: FULL CODE DISPOSITION: Admitted to [place] for sepsis 2/2 pyelonephritis. Upgraded to ICU on 08/02 for acute respiratory distress. Significantly improved, will downgrade. Will continue BiPAP for now and taper as tolerated Follow PT/OT recommendations Case management and social work aware of case. Patient currently lives with daughter and uses a cane for ambulation for the past 6 years, is dependent on all IADLs except for cooking, completely independent on ADLs. MiniCOG 3/. Never smoker or drinker LOS >96 Hr due to continued need for diuresis, weaning of oxygen. Likely discharge 09/05/19 pending continued improvement.
[2019-09-05] MEDS: cefTRIAXone 2 GM in Sodium Chloride 0.9% 100 ML IV SCH (17:36)
[2019-09-05] MEDS: Insulin Glarg,Human.Rec.Analog 100 UNIT/ML ML SUBCUT SCH (22:12)
[2019-09-05] MEDS: Simvastatin 20 MG Tab PO SCH (22:13)
[2019-09-06] MEDS: Insulin Lispro 100 Units/ML 3 ML Vial SUBCUT SCH ×2 (06:49→12:27)
[2019-09-06] MEDS: Levothyroxine 50 MCG Tab PO SCH (06:49)
[2019-09-06 09:13] VITALS: BP 148/95; PULSE 76
[2019-09-06] MEDS: Potassium Chloride 10% 20 MEQ/15 ML Soln 15 ML UD Cup PO SCH (09:14)
[2019-09-06] MEDS: Clopidogrel 75 MG Tab PO SCH (09:15)
[2019-09-06] MEDS: amLODIPine 10 MG Tab PO SCH (09:16)
[2019-09-06] MEDS: Docusate Sodium 100 MG Cap PO SCH (09:16)
[2019-09-06] MEDS: Hydrochlorothiazide 25 MG Tab PO SCH (09:17)
[2019-09-06] MEDS: Enoxaparin 40 MG/0.4 ML Syringe SUBCUT SCH (09:19)
[2019-09-06] MEDS ORDERED: Sulfamethoxazole/Trimethoprim 800-160 MG Tab PO SCH (10:00)
[2019-09-06] MEDS ORDERED: Bisacodyl 10 MG Supp RECTAL ONE (10:08)
--- NOTE | 2019-09-06 11:32 | PCM.DCSUM1 ---
Discharge Summary - Hospital Course HPI Initial Comments: This is a 74 year-old female with past medical history of diabetes, hypertension and hypothyroidism who came to the ED for vomiting x 2. As per patient she woke up around 2 AM and started having nausea x 1, bile and food content without blood associated with chills. She thought she was having an episode of hypoglycemia for which she measured her glucose which was 300 at the time. She went back to bed and fell asleep. She woke up at 8AM and had more episodes of vomiting, x4-5 episodes of biliary content; after this daughter decided to bring her to the ED for further evaluation. She does endorse increased urinary frequency, urgency and incontinence in the past couple of weeks. She denies any abdominal pain, diarrhea, fevers, painful or burning urination. Diagnosis: Stroke: No - Discharge Data Discharge Date: 09/06/19 Discharge Disposition: Home, Self-Care 01 Condition: Good - Referral to Home Health Primary Care Physician: Darcy Mohan NP - Patient Summary/Data Consults: Consultations 09/02/19 10:37 OT Evaluation and Treatment [CONS] Routine PT Evaluation and Treatment [CONS] Routine Hospital Course: Lea was admitted to the floor with sepsis secondary to pyelonephritis. She received fluid bolus and on day 2 developed pulmonary edema. Patient was placed on BiPAP and transferred to the ICU secondary to acute hypoxemic respiratory failure and pulmonary edema. Patient was diuresed and was able to come off BiPAP and transferred back to the floor. Patient continued on IV antibiotics, Rocephin for 6 days. White count completely resolved, but did increase on the second to last day in the last day of hospitalization. It was felt this was secondary to inflammatory changes and not necessarily secondary to worsening infection. Patient had an overall improvement in her symptoms. E. coli grew from her urine and was sensitive to Bactrim. Patient was switched over to Bactrim prior to discharge. She will finish a 10-day course of antibiotics. Patient only had a small bowel movement on the day of discharge. Milk of mag was given, enema, and suppository. She was sent home on MiraLAX and given another dose of milk of magnesia. - Patient Instructions Diet: Diabetic Diet Driving: May Drive Today Showering/Bathing: May Shower Other/Special Instructions: Follow up with PCP this week. Finish all antibiotics. - Discharge Plan *PRESCRIPTION DRUG MONITORING PROGRAM REVIEWED*: No *COPY OF PRESCRIPTION DRUG MONITORING REPORT IN PATIENT EDD: No Prescriptions/Med Rec: Polyethylene Glycol 3350 [Powderlax] 17 gm PO DAILY #10 powd.pack Sulfamethoxazole/Trimethoprim [Septra DS] 1 tab PO BID #9 tablet Home Medications: Home Meds Simvastatin [Zocor] 20 mg PO BEDTIME 02/03/17 [History] amLODIPine [Norvasc] 10 mg PO DAILY 02/03/17 [History] Acetaminophen [Tylenol] 650 mg PO Q4H PRN #60 tablet 05/28/17 [Rx] Acetaminophen/HYDROcodone [[place] 325-5 MG] 1 tab PO Q4H PRN #40 tablet 05/28/17 [Rx] Alum Hydrox/Mag Hydrox/Simeth [Mag-Al Plus] 30 ml PO Q4H PRN #0 cup 05/28/17 [Rx ] Insulin Aspart [NovoLOG] See Protocol SUBCUT TIDAC 09/17/18 [History] Potassium Chloride 20 meq PO DAILY 09/17/18 [History] Cholecalciferol (Vitamin D3) [Vitamin D3] 5,000 units PO DAILY 09/01/19 [History ] Clopidogrel Bisulfate [Plavix] 75 mg PO DAILY 09/01/19 [History] Cyanocobalamin (Vitamin B-12) [Vitamin B-12] 500 mcg PO DAILY 09/01/19 [History] Ergocalciferol (Vitamin D2) [Vitamin D2] 50,000 unit PO WEEKLY 09/01/19 [History ] Levothyroxine [Synthroid] 50 mcg PO DAILY 09/01/19 [History] hydroCHLOROthiazide [Hydrochlorothiazide] 25 mg PO DAILY 09/01/19 [History] metFORMIN [Glucophage] 500 mg PO DAILY 09/01/19 [History] Insulin Detemir [Levemir] 38 unit SQ DAILY #0 09/06/19 [Rx] Polyethylene Glycol 3350 [Powderlax] 17 gm PO DAILY #10 powd.pack 09/06/19 [Rx] Sulfamethoxazole/Trimethoprim [Septra DS] 1 tab PO BID #9 tablet 09/06/19 [Rx] Oxygen Therapy Mode: Room Air Patient Handouts: Pyelonephritis, Adult, [id number], Sepsis, Adult Forms: ED Department Discharge Referrals: Darcy Mohan NP [Primary Care Provider] - (Please call PCP on Saturday to set-up an appointment) - Discharge Summary/Plan Comment DC Time >30 min.: Yes Discharge Summary/Plan Comment: Discharged home in good condition. Bactrim double strength 1 tab twice daily for 4 days If she develops fever or any worsening symptoms return to emergency department or contact primary care provider. Follow-up with primary care provider in the next 5 days. - General Info Date of Service: 09/06/19 Admission Dx/Problem (Free Text: Admission Diagnosis/Problem Admission Diagnosis/Problem Pyelonephritis Subjective Update: She states she is doing well without any complaints. Functional Status: Reports: Pain Controlled - Review of Systems General: Reports: No Symptoms HEENT: Reports: No Symptoms Pulmonary: Reports: No Symptoms Cardiovascular: Reports: No Symptoms Gastrointestinal: Reports: No Symptoms - Patient Data Vitals - Most Recent: Last Vital Signs Temp 98.1 F 09/06/19 09:12 Pulse 76 09/06/19 09:12 Resp 16 09/06/19 09:12 BP 148/95 H 09/06/19 09:16 Pulse Ox 92 L 09/06/19 09:12 Weight - Most Recent: 186 lb I&O - Last 24 hours: Intake & Output 09/05/19 09/06/19 09/06/19 22:59 06:59 14:59 Intake Total 980 350 120 Output Total 1200 875 Balance -220 -525 120 Lab Results - Last 24 hrs: Laboratory Results - last 24 hr 09/05/19 09/05/19 09/06/19 Range/Units 16:33 22:11 05:26 WBC 11.40 H (3.98-10.04) K/mm3 RBC 3.77 L (3.98-5.22) M/mm3 Hgb 10.5 L (11.2-15.7) gm/dl Hct 33.1 L (34.1-44.9) % MCV 87.8 (79.4-94.8) fl MCH 27.9 (25.6-32.2) pg MCHC 31.7 L (32.2-35.5) g/dl RDW Std Deviation 45.0 (36.4-46.3) fL Plt Count 405 H (182-369) K/mm3 MPV 8.9 L (9.4-12.3) fl Neut % (Auto) 66.7 (34.0-71.1) % Lymph % (Auto) 19.3 (19.3-51.7) % [place] % (Auto) 6.7 (4.7-12.5) % Eos % (Auto) 2.5 (0.7-5.8) Baso % (Auto) 0.5 (0.1-1.2) % Neut # (Auto) 7.61 H (1.56-6.13) K/mm3 Lymph # (Auto) 2.20 (1.18-3.74) K/mm3 [place] # (Auto) 0.76 H (0.24-0.36) K/mm3 Eos # (Auto) 0.28 (0.04-0.36) K/mm3 Baso # (Auto) 0.06 (0.01-0.08) K/mm3 Manual Slide Review Abnormal smear Sodium (136-145) mEq/L Potassium (3.5-5.1) mEq/L Chloride (98-107) mEq/L Carbon Dioxide (21-32) mEq/L Anion Gap (5-15) BUN (7-18) mg/dL Creatinine (0.55-1.02) mg/dL Est Cr Clr Drug Dosing mL/min Estimated GFR (MDRD) (>60) mL/min BUN/Creatinine Ratio (14-18) Glucose (83-115) mg/dL POC Glucose 147 H 214 H (83-110) mg/dL Calcium (8.5-10.1) mg/dL Magnesium (1.8-2.4) mg/dl 09/06/19 09/06/19 09/06/19 Range/Units 05:26 06:48 11:09 WBC (3.98-10.04) K/mm3 RBC (3.98-5.22) M/mm3 Hgb (11.2-15.7) gm/dl Hct (34.1-44.9) % MCV (79.4-94.8) fl MCH (25.6-32.2) pg MCHC (32.2-35.5) g/dl RDW Std Deviation (36.4-46.3) fL Plt Count (182-369) K/mm3 MPV (9.4-12.3) fl Neut % (Auto) (34.0-71.1) % Lymph % (Auto) (19.3-51.7) % [place] % (Auto) (4.7-12.5) % Eos % (Auto) (0.7-5.8) Baso % (Auto) (0.1-1.2) % Neut # (Auto) (1.56-6.13) K/mm3 Lymph # (Auto) (1.18-3.74) K/mm3 [place] # (Auto) (0.24-0.36) K/mm3 Eos # (Auto) (0.04-0.36) K/mm3 Baso # (Auto) (0.01-0.08) K/mm3 Manual Slide Review Sodium 138 (136-145) mEq/L Potassium 3.9 (3.5-5.1) mEq/L Chloride 101 (98-107) mEq/L Carbon Dioxide 27 (21-32) mEq/L Anion Gap 13.9 (5-15) BUN 8 (7-18) mg/dL Creatinine 1.0 (0.55-1.02) mg/dL Est Cr Clr Drug Dosing 37.81 mL/min Estimated GFR (MDRD) 54 (>60) mL/min BUN/Creatinine Ratio 8.0 L (14-18) Glucose 138 H (83-115) mg/dL POC Glucose 137 H 237 H (83-110) mg/dL Calcium 8.6 (8.5-10.1) mg/dL Magnesium 2.0 (1.8-2.4) mg/dl ALLY Results - Last 24 hrs: Microbiology 08/31/19 18:09 Aerobic Blood Culture - Preliminary Blood - Venous - Lab Draw NO GROWTH AFTER 5 DAYS Anaerobic Blood Culture - Preliminary NO GROWTH AFTER 5 DAYS 08/31/19 17:58 Aerobic Blood Culture - Preliminary Blood - Venous NO GROWTH AFTER 5 DAYS Anaerobic Blood Culture - Preliminary NO GROWTH AFTER 5 DAYS Med Orders - Current: Current Medications Acetaminophen (Tylenol) 650 mg PO Q4H PRN PRN Reason: Pain (Mild 1-3)/fever Last Admin: 08/31/19 22:49 Dose: 650 mg Acetaminophen/Codeine Phosphate (Tylenol With Codeine No.3 300mg/30mg) 1 tab PO Q6H PRN PRN Reason: Pain (moderate 4-6) Amlodipine Besylate (Norvasc) 10 mg PO DAILY [facility] Last Admin: 09/06/19 09:16 Dose: 10 mg Clopidogrel Bisulfate (Plavix) 75 mg PO DAILY [facility] Last Admin: 09/06/19 09:15 Dose: 75 mg Dextrose/Water (Dextrose 50% In Water) 50 ml IVPUSH ASDIRECTED PRN PRN Reason: Hypoglycemia Docusate Sodium (Colace) 100 mg PO DAILY [facility] Last Admin: 09/06/19 09:16 Dose: 100 mg Enoxaparin Sodium (Lovenox) 40 mg SUBCUT DAILY [facility] Last Admin: 09/06/19 09:19 Dose: 40 mg Hydrochlorothiazide (Hydrochlorothiazide) 25 mg PO DAILY [facility] Last Admin: 09/06/19 09:17 Dose: 25 mg Insulin Glargine (Lantus) 30 unit SUBCUT Q24H [facility] Last Admin: 09/05/19 22:12 Dose: 30 units Insulin Human Lispro (Humalog) 0 unit SUBCUT QIDACANDBED [facility]; Protocol Last Admin: 09/06/19 06:49 Dose: Not Given Levothyroxine Sodium (Synthroid) 50 mcg PO ACBRK [facility] Last Admin: 09/06/19 06:49 Dose: 50 mcg Ondansetron HCl (Zofran) 4 mg IVPUSH Q8H PRN PRN Reason: Nausea/Vomiting Last Admin: 09/03/19 02:01 Dose: 4 mg Potassium Chloride (Potassium Chloride Solution) 40 meq PO DAILY [facility] Last Admin: 09/06/19 09:14 Dose: 40 meq Simvastatin (Zocor) 20 mg PO BEDTIME [facility] Last Admin: 09/05/19 22:13 Dose: 20 mg Sodium Chloride (Saline Flush) 10 ml FLUSH ASDIRECTED PRN PRN Reason: Keep Vein Open Last Admin: 09/01/19 12:26 Dose: 10 ml Trimethoprim/Sulfamethoxazole (Septra Ds) 1 tab PO BID [facility] Last Admin: 09/06/19 10:17 Dose: 1 tab Discontinued Medications Amlodipine Besylate (Norvasc) 10 mg PO DAILY [facility] Stop: 09/04/19 09:00 Last Admin: 09/03/19 16:49 Dose: Not Given Bisacodyl (Dulcolax) 10 mg RECTAL ONETIME ONE Stop: 09/06/19 10:09 Last Admin: 09/06/19 10:17 Dose: 10 mg Furosemide (Lasix) 40 mg IVPUSH NOW ONE Stop: 09/01/19 08:10 Last Admin: 09/01/19 08:14 Dose: 40 mg Furosemide (Lasix) Confirm Administered Dose 40 mg .ROUTE .STK-MED ONE Stop: 09/01/19 08:11 Last Admin: 09/01/19 08:37 Dose: Not Given Furosemide (Lasix) 40 mg IVPUSH ONETIME ONE Stop: 09/03/19 18:09 Last Admin: 09/03/19 18:30 Dose: 40 mg Furosemide (Lasix) 40 mg IVPUSH NOW ONE Stop: 09/04/19 12:09 Last Admin: 09/04/19 13:09 Dose: 40 mg Sodium Chloride (Normal Saline) 1,000 mls @ 999 mls/hr IV ASDIRECTED [facility] Last Admin: 08/31/19 13:56 Dose: 999 mls/hr Sodium Chloride (Normal Saline) 1,000 mls @ 999 mls/hr IV ASDIRECTED [facility] Sodium Chloride (Normal Saline) 100 mls @ 60 mls/hr IV ASDIRECTED [facility] Last Admin: 08/31/19 16:08 Dose: 60 mls/hr Ceftriaxone Sodium 2 gm/ (Sodium Chloride) 100 mls @ 200 mls/hr IV Q24H [facility] Last Admin: 09/02/19 16:39 Dose: 200 mls/hr Sodium Chloride (Normal Saline) 1,000 mls @ 150 mls/hr IV ASDIRECTED [facility] Last Admin: 08/31/19 18:17 Dose: 150 mls/hr Lactated Ringer's (Ringers, Lactated) 1,000 mls @ 200 mls/hr IV ASDIRECTED [facility] Stop: 09/02/19 00:59 Last Admin: 08/31/19 21:01 Dose: 200 mls/hr Lactated Ringer's (Ringers, Lactated) 1,000 mls @ 75 mls/hr IV ASDIRECTED [facility] Stop: 09/01/19 07:00 Potassium Chloride 10 meq/ (Premix) 100 mls @ 100 mls/hr IV ONETIME ONE Stop: 08/31/19 23:59 Last Admin: 08/31/19 22:41 Dose: 100 mls/hr Potassium Chloride 10 meq/ (Premix) 100 mls @ 100 mls/hr IV ONETIME ONE Stop: 09/01/19 00:59 Last Admin: 09/01/19 01:32 Dose: 100 mls/hr Potassium Chloride 10 meq/ (Premix) 100 mls @ 100 mls/hr IV ONETIME ONE Stop: 09/01/19 01:59 Last Admin: 09/01/19 02:46 Dose: 100 mls/hr Potassium Chloride 10 meq/ (Premix) 100 mls @ 100 mls/hr IV ONETIME ONE Stop: 09/01/19 02:59 Last Admin: 09/01/19 06:00 Dose: 100 mls/hr Lactated Ringer's (Ringers, Lactated) 1,000 mls @ 250 mls/hr IV ASDIRECTED [facility] Stop: 09/02/19 04:14 Last Admin: 09/01/19 02:47 Dose: 250 mls/hr Lactated Ringer's (Ringers, Lactated) 500 mls @ 999 mls/hr IV .BOLUS ONE Stop: 09/01/19 06:11 Last Admin: 09/01/19 07:18 Dose: Not Given Lactated Ringer's (Ringers, Lactated) 1,000 mls @ 100 mls/hr IV ASDIRECTED [facility] Last Admin: 09/01/19 15:42 Dose: 100 mls/hr Sodium Chloride (Normal Saline) 100 mls @ 80 mls/hr IV ASDIRECTED [facility] Stop: 09/01/19 13:00 Last Admin: 09/01/19 12:26 Dose: 80 mls/hr Magnesium Sulfate 4 gm/ Premix 100 mls @ 25 mls/hr IV ONETIME ONE Stop: 09/02/19 12:59 Last Admin: 09/02/19 15:36 Dose: 25 mls/hr Potassium Chloride 10 meq/ (Premix) 100 mls @ 100 mls/hr IV Q1H [facility] Stop: 09/02/19 16:59 Last Admin: 09/02/19 19:22 Dose: Not Given Sodium Chloride (Normal Saline) 250 mls @ 50 mls/hr IV ASDIRECTED [facility] Last Admin: 09/02/19 15:38 Dose: 50 mls/hr Potassium Chloride 10 meq/ (Premix) 100 mls @ 100 mls/hr IV Q1H [facility] Stop: 09/02/19 20:29 Last Admin: 09/02/19 19:21 Dose: 100 mls/hr Ceftriaxone Sodium 2 gm/ (Sodium Chloride) 100 mls @ 200 mls/hr IV ONETIME ONE Stop: 09/03/19 17:59 Last Admin: 09/03/19 16:53 Dose: 200 mls/hr Ceftriaxone Sodium 2 gm/ (Sodium Chloride) 100 mls @ 200 mls/hr IV Q24H [facility] Last Admin: 09/05/19 17:36 Dose: 200 mls/hr Insulin Glargine (Lantus) 10 unit SUBCUT BEDTIME [facility] Last Admin: 08/31/19 22:42 Dose: 10 units Insulin Glargine (Lantus) 30 unit SUBCUT DAILY [facility] Last Admin: 09/02/19 09:23 Dose: Not Given Insulin Human Lispro (Humalog) 0 unit SUBCUT BIDAC [facility]; Protocol Iopamidol (Isovue-300 (61%)) 100 ml IVPUSH ONETIME ONE Stop: 08/31/19 15:54 Last Admin: 08/31/19 16:08 Dose: 100 ml Iopamidol (Isovue-370 (76%)) 100 ml IVPUSH ONETIME ONE Stop: 09/01/19 11:12 Last Admin: 09/01/19 12:26 Dose: 100 ml Magnesium Hydroxide (Milk Of Magnesia) 30 ml PO ONETIME ONE Stop: 09/05/19 11:46 Last Admin: 09/05/19 11:54 Dose: 30 ml Morphine Sulfate (Morphine) 1 mg IVPUSH Q4H PRN PRN Reason: Pain (severe 7-10) Stop: 09/01/19 20:58 Ondansetron HCl (Zofran) 4 mg IVPUSH ONETIME ONE Stop: 08/31/19 13:14 Last Admin: 08/31/19 13:56 Dose: 4 mg Ondansetron HCl (Zofran) 4 mg IVPUSH ONETIME ONE Stop: 08/31/19 15:47 Last Admin: 08/31/19 16:13 Dose: 4 mg Ondansetron HCl (Zofran Odt) 8 mg PO Q8H PRN PRN Reason: Nausea/Vomiting Last Admin: 08/31/19 21:28 Dose: 8 mg Potassium Chloride (Klor-Con M20) 20 meq PO DAILY [facility] Last Admin: 09/04/19 07:59 Dose: 20 meq Potassium Chloride (Potassium Chloride Solution) 40 meq PO ONETIME ONE Stop: 09/04/19 12:08 Last Admin: 09/04/19 13:05 Dose: 40 meq Sodium Chloride (Saline Flush) 10 ml FLUSH ONETIME ONE Stop: 08/31/19 15:54 Last Admin: 08/31/19 16:09 Dose: 10 ml Sodium Chloride (Saline Flush) 10 ml FLUSH ONETIME PRN PRN Reason: KEEP VEIN OPEN Stop: 09/01/19 13:00 Sodium Phosphate (Neutra-Phos) 250 mg PO ONETIME ONE Stop: 09/03/19 16:16 Last Admin: 09/03/19 16:47 Dose: 250 mg - Exam General: Reports: Alert, Oriented HEENT: Reports: Pupils Equal Neck: Reports: Supple Lungs: Reports: Clear to Auscultation, Normal Respiratory Effort Cardiovascular: Reports: Regular Rate, Regular Rhythm GI/Abdominal Exam: Normal Bowel Sounds, Soft, Non-Tender, No Organomegaly, No Distention Back Exam: Reports: Normal Inspection Extremities: Normal Inspection Skin: Reports: Warm, Dry, Intact Psy/Mental Status: Reports: Alert, Normal Affect, Normal Mood
[2019-09-06] MEDS ORDERED: Magnesium Hydroxide 400 MG/5 ML Susp 30 ML Cup PO ONE (12:34)
--- NOTE | 2019-09-07 06:33 | CR ---
Chest: Two views of the chest were obtained. Comparison: Prior chest CT study of 09/01/19 and chest x-ray of 09/01/19. Minimal bilateral pleural effusions are noted. Heart is enlarged. Pulmonary vessels are mildly congested. No acute parenchymal change is appreciated on this exam as noted previously. Central lung markings are diminished in prominence from previous exam. Impression: 1. Findings felt compatible with decreased pulmonary edema from prior exam. 2. Minimal bilateral pleural effusions are noted. 3. Stable cardiomegaly and mild persisting pulmonary vascular congestion. Diagnostic code #3 This report was dictated in [place] Standard Time I mostly agree with preliminary report from [facility], finalized on 09/03/19, 4:28 PM Central Time
== END 2019-09-06 14:17 | disposition home or self-care (01) | DRG 871 ==
LOC: JD.ED 12:36 → JD.MS 20:11 → JD.ICU 09-01 08:26 → JD.MS 09-02 13:20
PROVIDERS: ADMIT Internal Medicine; ATTEND Internal Medicine
PROC: 5A09457 Assistance with Respiratory Ventilation, 24-96 Consecutive Hours, Continuous Positive Airway Pressure (ICD-10-PCS; principal; 2019-09-01)
DX: A41.9 Sepsis, unspecified organism (principal); J96.01 Acute respiratory failure with hypoxia; N12 Tubulo-interstitial nephritis, not specified as acute or chronic; I10 Essential (primary) hypertension; J81.1 Chronic pulmonary edema; E87.1 Hypo-osmolality and hyponatremia; B96.20 Unspecified Escherichia coli [E. coli] as the cause of diseases classified elsewhere; E03.9 Hypothyroidism, unspecified; H54.7 Unspecified visual loss; E78.00 Pure hypercholesterolemia, unspecified; K59.09 Other constipation; Z79.890 Hormone replacement therapy; M19.041 Primary osteoarthritis, right hand; M19.042 Primary osteoarthritis, left hand; M17.11 Unilateral primary osteoarthritis, right knee; D64.9 Anemia, unspecified; R29.6 Repeated falls; E55.9 Vitamin D deficiency, unspecified; E11.621 Type 2 diabetes mellitus with foot ulcer; L97.509 Non-pressure chronic ulcer of other part of unspecified foot with unspecified severity; I73.9 Peripheral vascular disease, unspecified; I12.9 Hypertensive chronic kidney disease with stage 1 through stage 4 chronic kidney disease, or unspecified chronic kidney disease; E87.6 Hypokalemia; E11.51 Type 2 diabetes mellitus with diabetic peripheral angiopathy without gangrene; E11.22 Type 2 diabetes mellitus with diabetic chronic kidney disease; N18.3 Chronic kidney disease, stage 3 (moderate); Z98.49 Cataract extraction status, unspecified eye; Z90.89 Acquired absence of other organs; Z79.4 Long term (current) use of insulin; Z79.899 Other long term (current) drug therapy; Z91.09 Other allergy status, other than to drugs and biological substances; Z87.440 Personal history of urinary (tract) infections; Z87.81 Personal history of (healed) traumatic fracture
CPT/HCPCS: 36415; 74018; 74177; 80053; 81001; 82962 ×2; 83605; 83690; 85025; 87040 ×2; 87086; 87088; 87186; 96361; 96365; 96375; 96376; 99285; J0696; J2405 ×2; J7030 ×4; Q9967; 36600; 71045; 71045-26; 71046; 71046-26; 71275; 71275-26; 80048; 82803; 83036; 83735; 84100; 84484; 85379; 93306; 94660; 94760; 97110-GP; 97116-GP; 97162-GP; 97165-GO; 97530-GO; 99283; A9270-GY; J1650; J1815-GY; J1940; J3475; J3480; J7050; J7120

== ENCOUNTER 2024-02-16 08:16 | Emergency (ER) | payer MEDICARE, MEDICAID ==
[2024-02-16 09:29] LABS: BASOPHILS ABSOLUTE AUTO 0.1 K/mm3 (0.0-0.2); BASOPHILS PERCENT AUTO 0.5 % (0.0-1.0); EOSINOPHILS ABSOLUTE AUTO 0.2 K/mm3 (0.0-0.4); EOSINOPHILS PERCENT AUTO 1.9 % (0.0-6.0); HEMATOCRIT 32.9 % (37.0-47.0); HEMOGLOBIN 10.4 gm/dl (12.0-16.0); IMMATURE GRAN ABSOLUTE AUTO 0.11 K/mm3 (0.00-0.05); IMMATURE GRAN PERCENT AUTO 1.1 % (0.0-0.4); LYMPHOCYTES ABSOLUTE AUTO 2.1 K/mm3 (1.0-4.8); LYMPHOCYTES PERCENT AUTO 21.4 % (24.0-44.0); MEAN CORPUSCULAR HGB CONC 31.6 g/dl (32.0-36.0); MEAN CORPUSCULAR VOLUME 79.1 fl (83.0-99.0); MEAN PLATELET VOLUME 8.3 fl (9.4-12.3); MONOCYTES ABSOLUTE AUTO 0.8 K/mm3 (0.0-0.8); MONOCYTES PERCENT AUTO 7.9 % (0.0-8.0); NEUTROPHILS ABSOLUTE AUTO 6.4 K/mm3 (1.8-7.7); NEUTROPHILS PERCENT AUTO 67.2 % (41.0-71.0); PLATELET COUNT,PLT 236 K/mm3 (150-400); RED BLOOD CELL COUNT 4.16 M/mm3 (4.10-5.30); WHITE BLOOD CELL COUNT,WBC 9.57 K/mm3 (3.9-11.3)
[2024-02-16 09:46] LABS: PROTHROMBIN TIME 10.7 SECONDS (9.7-12.0)
[2024-02-16 09:49] LABS: A/G RATIO 0.8 (1-2); ALBUMIN 3.2 g/dl (3.4-5.0); BILIRUBIN TOTAL 0.4 mg/dL (0.2-1.0); BUN/CREATININE RATIO 9.2 (14-18); CALCIUM 8.7 mg/dL (8.5-10.1); CREATININE 1.2 mg/dL (0.55-1.02); EST CRCL DRUG DOSING (CG) 31.05 mL/min; PROTEIN TOTAL,TP 7.3 g/dl (6.4-8.2)
[2024-02-16 09:57] LABS: ANION GAP 14.3 (5-15); POTASSIUM,K 3.3 mEq/L (3.5-5.1)
[2024-02-16] MEDS ORDERED: Acetaminophen/oxyCODONE 325-5 MG Tab PO ONE (10:47)
[2024-02-16 11:44] VITALS: BP 154/53; PULSE 66
== END 2024-02-16 11:36 | disposition home or self-care (01) ==
LOC: JD.ED 08:16
DX: S92.501A Displaced unspecified fracture of right lesser toe(s), initial encounter for closed fracture (principal); E78.00 Pure hypercholesterolemia, unspecified; I10 Essential (primary) hypertension; E11.9 Type 2 diabetes mellitus without complications; E03.9 Hypothyroidism, unspecified; Z91.048 Other nonmedicinal substance allergy status; Z79.4 Long term (current) use of insulin; Z79.899 Other long term (current) drug therapy; Z86.16 Personal history of COVID-19; X58.XXXA Exposure to other specified factors, initial encounter
CPT/HCPCS: 36415; 70450; 70450-26; 73610-26-RT; 73610-RT; 73630-26-RT; 73630-RT; 80053; 85025; 85610; 99284

== ENCOUNTER 2024-10-14 08:30 | Emergency (ER) | payer MEDICAID, MEDICARE ==
[2024-10-14 09:30] LABS: BASOPHILS ABSOLUTE AUTO 0.1 K/mm3 (0.0-0.2); BASOPHILS PERCENT AUTO 0.5 % (0.0-1.0); EOSINOPHILS ABSOLUTE AUTO 0.1 K/mm3 (0.0-0.4); EOSINOPHILS PERCENT AUTO 0.8 % (0.0-6.0); HEMATOCRIT 29.6 % (37.0-47.0); IMMATURE GRAN ABSOLUTE AUTO 0.08 K/mm3 (0.00-0.05); IMMATURE GRAN PERCENT AUTO 0.7 % (0.0-0.4); LYMPHOCYTES ABSOLUTE AUTO 1.7 K/mm3 (1.0-4.8); LYMPHOCYTES PERCENT AUTO 13.8 % (24.0-44.0); MEAN CORPUSCULAR HEMOGLOBIN 24.9 pg (28.0-32.0); MEAN CORPUSCULAR HGB CONC 30.4 g/dl (32.0-36.0); MEAN CORPUSCULAR VOLUME 81.8 fl (83.0-99.0); MEAN PLATELET VOLUME 8.9 fl (9.4-12.3); MONOCYTES ABSOLUTE AUTO 0.7 K/mm3 (0.0-0.8); MONOCYTES PERCENT AUTO 5.4 % (0.0-8.0); NEUTROPHILS ABSOLUTE AUTO 9.5 K/mm3 (1.8-7.7); NEUTROPHILS PERCENT AUTO 78.8 % (41.0-71.0); PLATELET COUNT,PLT 301 K/mm3 (150-400); RED BLOOD CELL COUNT 3.62 M/mm3 (4.10-5.30)
[2024-10-14 09:45] LABS: HEMOGLOBIN A1C 8.7 %
[2024-10-14 09:50] LABS: A/G RATIO 0.7 (1-2); ANION GAP 16.2 (5-15); BILIRUBIN TOTAL 0.3 mg/dL (0.2-1.0); BUN/CREATININE RATIO 8.8 (14-18); C-REACTIVE PROTEIN 0.81 mg/dL (<0.30); CALCIUM 9.1 mg/dL (8.5-10.1); CREATININE 1.7 mg/dL (0.55-1.02); EST CRCL DRUG DOSING (CG) 21.57 mL/min; MAGNESIUM 1.9 mg/dL (1.8-2.4); POTASSIUM,K 4.2 mEq/L (3.5-5.1); PROTEIN TOTAL,TP 7.1 g/dl (6.4-8.2)
[2024-10-14 09:55] LABS: LACTIC ACID 2.7 mmol/L (0.4-2.0)
[2024-10-14] MEDS: Sodium Chloride 0.9% 1,000 ML IV ONE (10:42)
[2024-10-14] MEDS: Sodium Chloride 0.9% 1,000 ML ONE (10:43)
[2024-10-14 10:46] LABS: APPEARANCE,URINE CLEAR (Clear); BILIRUBIN,URINE NEGATIVE (Negative); COLOR,URINE YELLOW (Yellow); GLUCOSE,URINE 3+ (Negative); KETONES,URINE NEGATIVE (Negative); LEUKOCYTE ESTERASE,URINE NEGATIVE (Negative); NITRITE,URINE NEGATIVE (Negative); OCCULT BLOOD,URINE TRACE-INTACT (Negative); PROTEIN,URINE NEGATIVE (Negative); UROBILINOGEN,URINE 0.2 (0.2-1.0)
[2024-10-14 11:03] LABS: BACTERIA,URINE MANY /hpf (FEW); EPITHELIAL CELLS,URINE 0-5 /hpf (0-5); MUCUS,URINE NOT SEEN /hpf (FEW); RBC,URINE 0-5 /hpf (0-5)
[2024-10-14 11:04] LABS: WBC CLUMPS,URINE FEW /hpf (NOT SEEN)
[2024-10-14] MEDS: Insulin Regular, Human 100 Units/ML 10 ML Vial ONE (11:26)
[2024-10-14] MEDS: Insulin Regular, Human 100 Units/ML 3 ML Vial SUBCUT ONE ×2 (11:27→11:42)
[2024-10-14] MEDS: Insulin Regular, Human 100 Units/ML 10 ML Vial SUBCUT ONE (11:35)
[2024-10-14] MEDS: cefTRIAXone 2 GM Vial IVPUSH ONE (13:14)
[2024-10-14 13:39] LABS: HEMATOCRIT 27.1 % (37.0-47.0); HEMOGLOBIN 8.4 gm/dl (12.0-16.0)
[2024-10-14 16:37] LABS: HEMATOCRIT 27.5 % (37.0-47.0); HEMOGLOBIN 8.5 gm/dl (12.0-16.0)
[2024-10-14] MEDS: Sodium Chloride 0.9% 500 ML IV ONE (18:02)
[2024-10-14 22:29] LABS: BASOPHILS ABSOLUTE AUTO 0.1 K/mm3 (0.0-0.2); BASOPHILS PERCENT AUTO 0.4 % (0.0-1.0); EOSINOPHILS ABSOLUTE AUTO 0.1 K/mm3 (0.0-0.4); EOSINOPHILS PERCENT AUTO 0.6 % (0.0-6.0); HEMATOCRIT 27.6 % (37.0-47.0); HEMOGLOBIN 8.5 gm/dl (12.0-16.0); IMMATURE GRAN ABSOLUTE AUTO 0.07 K/mm3 (0.00-0.05); IMMATURE GRAN PERCENT AUTO 0.5 % (0.0-0.4); LYMPHOCYTES ABSOLUTE AUTO 3.2 K/mm3 (1.0-4.8); LYMPHOCYTES PERCENT AUTO 20.7 % (24.0-44.0); MEAN CORPUSCULAR HEMOGLOBIN 25.2 pg (28.0-32.0); MEAN CORPUSCULAR HGB CONC 30.8 g/dl (32.0-36.0); MEAN CORPUSCULAR VOLUME 81.9 fl (83.0-99.0); MEAN PLATELET VOLUME 8.9 fl (9.4-12.3); MONOCYTES ABSOLUTE AUTO 0.9 K/mm3 (0.0-0.8); MONOCYTES PERCENT AUTO 6.2 % (0.0-8.0); NEUTROPHILS ABSOLUTE AUTO 10.9 K/mm3 (1.8-7.7); NEUTROPHILS PERCENT AUTO 71.6 % (41.0-71.0); PLATELET COUNT,PLT 308 K/mm3 (150-400); RED BLOOD CELL COUNT 3.37 M/mm3 (4.10-5.30); WHITE BLOOD CELL COUNT,WBC 15.25 K/mm3 (3.9-11.3)
[2024-10-14] MEDS: Dextrose 5%-0.45% NaCl 1,000 ML IV SCH (23:10)
[2024-10-14] MEDS: Famotidine 20 MG/2 ML SDV IVPUSH ONE (23:10)
[2024-10-15 04:37] LABS: BASOPHILS ABSOLUTE AUTO 0.1 K/mm3 (0.0-0.2); BASOPHILS PERCENT AUTO 0.5 % (0.0-1.0); EOSINOPHILS ABSOLUTE AUTO 0.1 K/mm3 (0.0-0.4); HEMATOCRIT 24.6 % (37.0-47.0); HEMOGLOBIN 7.6 gm/dl (12.0-16.0); IMMATURE GRAN ABSOLUTE AUTO 0.05 K/mm3 (0.00-0.05); IMMATURE GRAN PERCENT AUTO 0.5 % (0.0-0.4); LYMPHOCYTES ABSOLUTE AUTO 2.7 K/mm3 (1.0-4.8); LYMPHOCYTES PERCENT AUTO 25.8 % (24.0-44.0); MEAN CORPUSCULAR HEMOGLOBIN 25.1 pg (28.0-32.0); MEAN CORPUSCULAR HGB CONC 30.9 g/dl (32.0-36.0); MEAN CORPUSCULAR VOLUME 81.2 fl (83.0-99.0); MEAN PLATELET VOLUME 9.1 fl (9.4-12.3); MONOCYTES ABSOLUTE AUTO 0.7 K/mm3 (0.0-0.8); MONOCYTES PERCENT AUTO 6.5 % (0.0-8.0); NEUTROPHILS ABSOLUTE AUTO 6.8 K/mm3 (1.8-7.7); NEUTROPHILS PERCENT AUTO 65.7 % (41.0-71.0); PLATELET COUNT,PLT 261 K/mm3 (150-400); RED BLOOD CELL COUNT 3.03 M/mm3 (4.10-5.30)
[2024-10-15 06:31] VITALS: BP 127/47; PULSE 88
[2024-10-15 08:23] LABS: HEMATOCRIT 24.5 % (37.0-47.0); HEMOGLOBIN 7.5 gm/dl (12.0-16.0)
[2024-10-15] MEDS: Sodium Chloride 0.9% 10 ML Syringe FLUSH PRN (09:52)
[2024-10-15] MEDS: Insulin Glargine,Human Rec. Analog 100 Units/ML 3 ML Pen SUBCUT SCH (11:03)
== END 2024-10-15 12:13 | disposition home or self-care (01) ==
LOC: JD.ED 08:30
DX: K92.2 Gastrointestinal hemorrhage, unspecified (principal); I10 Essential (primary) hypertension; E78.00 Pure hypercholesterolemia, unspecified; E11.9 Type 2 diabetes mellitus without complications; E03.9 Hypothyroidism, unspecified; Z86.16 Personal history of COVID-19; Z90.89 Acquired absence of other organs; Z87.891 Personal history of nicotine dependence; Z91.048 Other nonmedicinal substance allergy status; Z79.4 Long term (current) use of insulin; Z79.890 Hormone replacement therapy; Z79.899 Other long term (current) drug therapy
CPT/HCPCS: 36415; 71045; 80053; 81001; 82272; 82947; 83036; 83605; 83735; 84484; 85014; 85018; 85025; 86140; 86850; 86900; 86901; 87040; 87428; 93005; 96361; 96374; 96375; 99284; C1758; J0696; J1815; J7030; J7799

== ENCOUNTER 2025-07-02 20:21 | Emergency (ER) | payer MEDICARE, MEDICAID ==
[2025-07-02] MEDS ORDERED: Sodium Chloride 0.9% 10 ML Syringe FLUSH PRN (20:29)
[2025-07-02 21:08] LABS: BASOPHILS ABSOLUTE AUTO 0.1 K/mm3 (0.0-0.2); BASOPHILS PERCENT AUTO 0.4 % (0.0-1.0); EOSINOPHILS ABSOLUTE AUTO 0.1 K/mm3 (0.0-0.4); EOSINOPHILS PERCENT AUTO 0.8 % (0.0-6.0); IMMATURE GRAN ABSOLUTE AUTO 0.08 K/mm3 (0.00-0.05); IMMATURE GRAN PERCENT AUTO 0.7 % (0.0-0.4); LYMPHOCYTES ABSOLUTE AUTO 1.1 K/mm3 (1.0-4.8); LYMPHOCYTES PERCENT AUTO 9.3 % (24.0-44.0); MEAN PLATELET VOLUME 8.8 fl (9.4-12.3); MONOCYTES ABSOLUTE AUTO 0.8 K/mm3 (0.0-0.8); MONOCYTES PERCENT AUTO 6.9 % (0.0-8.0); NEUTROPHILS ABSOLUTE AUTO 9.6 K/mm3 (1.8-7.7); NEUTROPHILS PERCENT AUTO 81.9 % (41.0-71.0); NRBC ABSOLUTE 0.00 (0.00-0.02); NRBC PERCENT 0.0 % (0.0-0.2); PLATELET COUNT,PLT 237 K/mm3 (150-400); RED BLOOD CELL COUNT 4.22 M/mm3 (4.10-5.30); WHITE BLOOD CELL COUNT,WBC 11.66 K/mm3 (3.9-11.3)
[2025-07-02 21:31] LABS: A/G RATIO 0.7 (1-2); ALANINE AMINOTRANSFERASE,ALT 16.0 U/L (14-59); ASPARTATE AMNIOTRANSFERASE,AST 15.0 U/L (15-37); BILIRUBIN TOTAL 0.6 mg/dL (0.2-1.0); BLOOD UREA NITROGEN,BUN 15.0 mg/dL (7-18); CARBON DIOXIDE,CO2 24.0 mEq/L (21-32); CHLORIDE,CL 104.0 mEq/L (98-107); CREATININE 1.3 mg/dL (0.55-1.02); EST CRCL DRUG DOSING (CG) 27.75 mL/min; ESTIMATED GFR 42.0 mL/min (>60); GLUCOSE RANDOM 201.0 mg/dL (70-99); POTASSIUM,K 4.5 mEq/L (3.5-5.1); PROTEIN TOTAL,TP 7.1 g/dl (6.4-8.2); SODIUM,NA 138.0 mEq/L (136-145)
[2025-07-02 21:36] LABS: CORONAVIRUS COVID-19 NAA NEGATIVE (NEGATIVE); INFLUENZA A NAA NEGATIVE (NEGATIVE); RESPIRATORY SYNCYTIAL VIR NAA NEGATIVE (NEGATIVE)
[2025-07-02 22:31] LABS: APPEARANCE,URINE CLOUDY (Clear); GLUCOSE,URINE TRACE (Negative); OCCULT BLOOD,URINE 1+ (Negative)
[2025-07-02 22:50] LABS: SQUAMOUS EPITHELIAL CELLS,UR 0-5 /hpf (0-5); WBC CLUMPS,URINE FEW /hpf (NOT SEEN)
[2025-07-02] MEDS: cefTRIAXone 2 GM in Water For Injection, Sterile 20 ML IVPUSH ONE (23:04)
[2025-07-02 23:41] VITALS: BP 126/58; PULSE 100
== END 2025-07-02 23:35 | disposition home or self-care (01) ==
LOC: JD.ED 20:21
DX: N39.0 Urinary tract infection, site not specified (principal); E11.621 Type 2 diabetes mellitus with foot ulcer; L97.529 Non-pressure chronic ulcer of other part of left foot with unspecified severity; L97.519 Non-pressure chronic ulcer of other part of right foot with unspecified severity; E78.00 Pure hypercholesterolemia, unspecified; I10 Essential (primary) hypertension; E03.9 Hypothyroidism, unspecified; Z79.4 Long term (current) use of insulin; Z79.84 Long term (current) use of oral hypoglycemic drugs; Z91.09 Other allergy status, other than to drugs and biological substances; Z79.890 Hormone replacement therapy; Z79.899 Other long term (current) drug therapy
CPT/HCPCS: 36415; 71045; 80053; 81001; 85025; 86140; 87086; 87637; 96361; 96374; 99285; A4216; C1758; J0696; J7030; 87088; 87186; 99283

== ENCOUNTER 2025-09-10 21:24 | Inpatient (IN) | payer MEDICARE, MEDICAID ==
[2025-09-10] MEDS ORDERED: Sodium Chloride 0.9% 10 ML Syringe FLUSH PRN (21:54)
[2025-09-10 22:02] LABS: BASOPHILS ABSOLUTE AUTO 0.1 K/mm3 (0.0-0.2); BASOPHILS PERCENT AUTO 0.5 % (0.0-1.0); EOSINOPHILS ABSOLUTE AUTO 0.0 K/mm3 (0.0-0.4); EOSINOPHILS PERCENT AUTO 0.2 % (0.0-6.0); IMMATURE GRAN ABSOLUTE AUTO 0.14 K/mm3 (0.00-0.05); IMMATURE GRAN PERCENT AUTO 1.1 % (0.0-0.4); LYMPHOCYTES ABSOLUTE AUTO 1.4 K/mm3 (1.0-4.8); LYMPHOCYTES PERCENT AUTO 10.7 % (24.0-44.0); MEAN PLATELET VOLUME 8.1 fl (9.4-12.3); MONOCYTES ABSOLUTE AUTO 0.7 K/mm3 (0.0-0.8); MONOCYTES PERCENT AUTO 5.6 % (0.0-8.0); NEUTROPHILS ABSOLUTE AUTO 10.8 K/mm3 (1.8-7.7); NEUTROPHILS PERCENT AUTO 81.9 % (41.0-71.0); NRBC ABSOLUTE 0.00 (0.00-0.02); NRBC PERCENT 0.0 % (0.0-0.2); PLATELET COUNT,PLT 239 K/mm3 (150-400); RED BLOOD CELL COUNT 4.00 M/mm3 (4.10-5.30); WHITE BLOOD CELL COUNT,WBC 13.15 K/mm3 (3.9-11.3)
[2025-09-10 22:16] LABS: APPEARANCE,URINE SLT CLOUDY (Clear); GLUCOSE,URINE NEGATIVE (Negative); OCCULT BLOOD,URINE NEGATIVE (Negative)
[2025-09-10 22:21] LABS: EPITHELIAL CELLS,URINE 0-5 /hpf (0-5)
[2025-09-10 22:23] LABS: A/G RATIO 0.6 (1-2); ASPARTATE AMNIOTRANSFERASE,AST 12.0 U/L (15-37); BILIRUBIN TOTAL 0.7 mg/dL (0.2-1.0); BLOOD UREA NITROGEN,BUN 14.0 mg/dL (7-18); CARBON DIOXIDE,CO2 24.0 mEq/L (21-32); CHLORIDE,CL 101.0 mEq/L (98-107); CREATININE 1.4 mg/dL (0.55-1.02); EST CRCL DRUG DOSING (CG) 25.77 mL/min; ESTIMATED GFR 38.0 mL/min (>60); GLUCOSE RANDOM 196.0 mg/dL (70-99); POTASSIUM,K 3.9 mEq/L (3.5-5.1); PROTEIN TOTAL,TP 7.3 g/dl (6.4-8.2); SODIUM,NA 135.0 mEq/L (136-145); TROPONIN I HIGH SENSITIVITY 8.0 pg/mL (<=51); TSH 2.681 uIU/mL (0.358-3.74)
[2025-09-10 22:33] LABS: LACTIC ACID 2.2 mmol/L (0.4-2.0)
[2025-09-10 22:53] LABS: ALANINE AMINOTRANSFERASE,ALT 11.0 U/L (14-59)
[2025-09-10] MEDS: cefTRIAXone 1 GM in Water For Injection, Sterile 10 ML IVPUSH ONE (23:26)
[2025-09-10] MEDS: Magnesium Sulfate 2 GM/50 mL 2 GM in Premix Bag 1 BAG IV ONE (23:36)
[2025-09-11 05:54] LABS: BASOPHILS ABSOLUTE AUTO 0.1 K/mm3 (0.0-0.2); BASOPHILS PERCENT AUTO 0.6 % (0.0-1.0); EOSINOPHILS ABSOLUTE AUTO 0.0 K/mm3 (0.0-0.4); EOSINOPHILS PERCENT AUTO 0.2 % (0.0-6.0); IMMATURE GRAN ABSOLUTE AUTO 0.15 K/mm3 (0.00-0.05); IMMATURE GRAN PERCENT AUTO 1.5 % (0.0-0.4); LYMPHOCYTES ABSOLUTE AUTO 2.5 K/mm3 (1.0-4.8); LYMPHOCYTES PERCENT AUTO 24.6 % (24.0-44.0); MEAN PLATELET VOLUME 8.3 fl (9.4-12.3); MONOCYTES ABSOLUTE AUTO 0.7 K/mm3 (0.0-0.8); MONOCYTES PERCENT AUTO 7.0 % (0.0-8.0); NEUTROPHILS ABSOLUTE AUTO 6.8 K/mm3 (1.8-7.7); NEUTROPHILS PERCENT AUTO 66.1 % (41.0-71.0); NRBC ABSOLUTE 0.00 (0.00-0.02); NRBC PERCENT 0.0 % (0.0-0.2); PLATELET COUNT,PLT 209 K/mm3 (150-400); RED BLOOD CELL COUNT 3.55 M/mm3 (4.10-5.30); WHITE BLOOD CELL COUNT,WBC 10.32 K/mm3 (3.9-11.3)
[2025-09-11 06:09] LABS: A/G RATIO 0.5 (1-2); ASPARTATE AMNIOTRANSFERASE,AST 11 U/L (15-37); BILIRUBIN TOTAL 0.4 mg/dL (0.2-1.0); BLOOD UREA NITROGEN,BUN 14 mg/dL (7-18); CARBON DIOXIDE,CO2 26 mEq/L (21-32); CHLORIDE,CL 104 mEq/L (98-107); CREATININE 1.4 mg/dL (0.55-1.02); EST CRCL DRUG DOSING (CG) 25.77 mL/min; ESTIMATED GFR 38 mL/min (>60); GLUCOSE RANDOM 214 mg/dL (70-99); PHOSPHORUS 3.2 mg/dL (2.6-4.7); POTASSIUM,K 4.1 mEq/L (3.5-5.1); PROTEIN TOTAL,TP 5.9 g/dl (6.4-8.2); SODIUM,NA 138 mEq/L (136-145)
[2025-09-11] MEDS ORDERED: Ondansetron 4 MG Tab.DIS PO PRN (06:55)
[2025-09-11] MEDS ORDERED: Ondansetron 4 MG/2 ML SDV IV PRN (06:55)
[2025-09-11 06:58] LABS: ALANINE AMINOTRANSFERASE,ALT < 6 U/L (14-59)
[2025-09-11] MEDS ORDERED: Non-Formulary Medication 1 Each (Insulin Detemir [Levemir] 100 UNIT/ML Pen) SQ SCH (07:15)
[2025-09-11] MEDS: cefTRIAXone 2 GM in Water For Injection, Sterile 20 ML IVPUSH SCH (08:06)
[2025-09-11] MEDS: Insulin Lispro 100 Unit/ML 3 ML KwikPen SUBCUT SCH (08:06)
[2025-09-11] MEDS: Ferrous Sulfate 324 MG Tab.EC PO SCH (10:20)
[2025-09-12 05:29] LABS: BASOPHILS ABSOLUTE AUTO 0.1 K/mm3 (0.0-0.2); BASOPHILS PERCENT AUTO 0.6 % (0.0-1.0); EOSINOPHILS ABSOLUTE AUTO 0.1 K/mm3 (0.0-0.4); EOSINOPHILS PERCENT AUTO 1.0 % (0.0-6.0); IMMATURE GRAN ABSOLUTE AUTO 0.12 K/mm3 (0.00-0.05); IMMATURE GRAN PERCENT AUTO 1.5 % (0.0-0.4); LYMPHOCYTES ABSOLUTE AUTO 2.3 K/mm3 (1.0-4.8); LYMPHOCYTES PERCENT AUTO 28.4 % (24.0-44.0); MEAN PLATELET VOLUME 8.3 fl (9.4-12.3); MONOCYTES ABSOLUTE AUTO 0.6 K/mm3 (0.0-0.8); MONOCYTES PERCENT AUTO 7.7 % (0.0-8.0); NEUTROPHILS ABSOLUTE AUTO 4.9 K/mm3 (1.8-7.7); NEUTROPHILS PERCENT AUTO 60.8 % (41.0-71.0); NRBC ABSOLUTE 0.00 (0.00-0.02); NRBC PERCENT 0.0 % (0.0-0.2); PLATELET COUNT,PLT 205 K/mm3 (150-400); RED BLOOD CELL COUNT 3.56 M/mm3 (4.10-5.30); WHITE BLOOD CELL COUNT,WBC 8.13 K/mm3 (3.9-11.3)
[2025-09-12 05:58] LABS: BLOOD UREA NITROGEN,BUN 15.0 mg/dL (7-18); CARBON DIOXIDE,CO2 22.0 mEq/L (21-32); CHLORIDE,CL 102.0 mEq/L (98-107); CREATININE 1.3 mg/dL (0.55-1.02); EST CRCL DRUG DOSING (CG) 27.75 mL/min; ESTIMATED GFR 42.0 mL/min (>60); GLUCOSE RANDOM 120.0 mg/dL (70-99); POTASSIUM,K 4.0 mEq/L (3.5-5.1); SODIUM,NA 135.0 mEq/L (136-145)
[2025-09-12 08:33] VITALS: BP 125/54; PULSE 95
== END 2025-09-12 09:27 | disposition home or self-care (01) | DRG 872 ==
LOC: JD.ED 21:24 → JD.MS 23:30
PROVIDERS: ADMIT Internal Medicine; ATTEND Internal Medicine
DX: A41.9 Sepsis, unspecified organism (principal); N39.0 Urinary tract infection, site not specified; E11.9 Type 2 diabetes mellitus without complications; E03.9 Hypothyroidism, unspecified; E78.5 Hyperlipidemia, unspecified; H26.9 Unspecified cataract; H54.7 Unspecified visual loss; E78.00 Pure hypercholesterolemia, unspecified; I10 Essential (primary) hypertension; K59.00 Constipation, unspecified; D64.9 Anemia, unspecified; Z86.16 Personal history of COVID-19; Z79.899 Other long term (current) drug therapy; Z88.8 Allergy status to other drugs, medicaments and biological substances; Z79.4 Long term (current) use of insulin; Z90.49 Acquired absence of other specified parts of digestive tract; Z87.891 Personal history of nicotine dependence
CPT/HCPCS: 36415; 51798; 71045; 71045-26; 80048; 80053; 81001; 82947; 83605; 83735; 84100; 84443; 84484; 85025; 87040; 87086; 87088; 87186; 87428-QW; 93005; 96374; 99285-25; A4216; A9270-GY; C1758; J0696; J1650; J3475; J7030